=== PATIENT | female | born 1945 | race Caucasian/White ===

== ENCOUNTER 2023-02-02 08:31 | Emergency (ER) | payer MEDICARE, SELFPAY ==
[2023-02-02 08:34] VITALS: BP 164/76; PULSE 80; RESP 16; TEMP 37.2; O2SAT 97; BMI 26.0
[2023-02-02 08:56] LABS: Bacteria 0 SEEN /hpf (None Seen); Mucous, Urine 0 SEEN /hpf (<or=2+); Red Blood Cells-Urine 0 SEEN /hpf (0-5); Squamous Epithelial Cells - UA 0 SEEN /hpf (5-10)
[2023-02-02 08:58] LABS: Color, Urine Straw (Yellow); Glucose, Dipstick Normal (Normal); Ketone-Dipstick Negative (Negative); Leukocyte Esterase-Dipstick 500 /ul (Negative); Nitrite-Dipstick Negative (Negative); Occult Blood-Urine 250 /ul (Negative); Protein-Dipstick 15 mg/dl (Negative); Specific Gravity, Urine 1.005 (1.002-1.030); Urine Bilirubin Dipstick Negative (Negative); Urine Clarity Sl. Cloudy (Clear); Urine Urobilinogen Normal (Normal); Urine pH 6.5 (5.0 - 8.0)
[2023-02-02 09:05] LABS: White Blood Cells 50-100 SEEN /hpf (0-5)
[2023-02-02] MEDS: Cephalexin 250 MG Capsule 500 MG PO (09:35)
--- NOTE | 2023-02-02 11:20 | EDS_ITS ---
HPI HPI - Female History of Present Illness Chief Complaint: Complaint Narrative Narrative: 77-year-old female presenting with dysuria, urinary frequency. She states she thought she had a low-grade fever of about 100 yesterday. She has not take anything for fever today and has not had a recurrence. She feels a little bit unwell but not nauseous. She states has been drinking plenty of fluids. She states she recently traveled cross-country from [place] by car. She reports that she stopped every 3 hours to use the restroom. She was drinking plenty of fluids throughout the day traveling. She spent about 8 hours a day in the car. She states she was not holding in her urine. She has a distant history of UTIs in the past. She denies any flank or abdominal pain. PFSH PFSH Home Medications cephalexin 500 mg capsule 500 mg PO Q12 #14 CAPSULES 02/02/23 [Rx Last Taken Unknown] Allergy/AdvReac Type Severity Reaction Status Date / Time clindamycin Allergy Severe Swelling Verified 02/02/23 08:33 Sulfa (Sulfonamide AdvReac Mild Other Verified 02/02/23 08:33 Antibiotics) Social History Smoking Status: Never smoker ROS ROS ED Constitutional Constitutional ED: Reports fever(s); Denies chills or sweats Eyes Eyes: Denies blurry vision or change in vision ENT ENT ED: Denies ear pain or sore throat Cardiovascular Cardiovascular: Denies chest pain, palpitations or racing heartbeat Respiratory/Chest Respiratory/Chest: Denies cough, dyspnea or sputum Gastrointestinal Gastrointestinal: Denies abdominal pain, constipation, diarrhea, nausea or vomiting Genitourinary Genitourinary ED: Reports dysuria and urinary frequency; Denies hematuria Musculoskeletal Musculoskeletal: Denies arthralgias, myalgias or neck pain Integumentary Denies abscess, Abrasions or rash Neurologic Neurologic: Denies headache(s), paresthesias or weakness Psychiatric Psychiatric: Denies anxiety, depression, suicidal ideation or suicidal thoughts Endocrine Endocrinology: Denies polydipsia or polyuria EXAM Physical Exam Const Vital Signs: 02/02/23 08:34 Temperature 99 F Temperature Source Temporal Pulse Rate 80 Respiratory Rate 16 Blood Pressure 164/76 H Blood Pressure Mean 105 Pulse Ox 97 Oxygen Delivery Method Room Air Positive well nourished General Appearance ED: NAD; Negative for pallor HEENT Reports moist mucous membranes Eyes PERRL and EOMs intact bilaterally Resp normal respiratory effort Cardio regular rate and regular rhythm Extremity normal to inspection and full ROM Neuro oriented x3 and CN's II-XII intact bilaterally Sensorium / Orientation: alert Motor Exam: strength 5/5 throughout Psych mental status grossly normal Skin General Skin Exam: Negative for jaundice or pallor MDM MDM MDM Narrative Medical decision making narrative: Patient presenting with UTI symptoms. Urinalysis shows occult blood, 500 leukocyte esterase, 50-100 white blood cells. There is no contamination. She does not have any flank pain or abdominal pain to suggest a kidney stone. She has no history of kidney stones. I will treat her for UTI with Keflex. I did offer lab work and the patient declines. Urine sent for culture and return precautions were discussed. Impression: 1. UTI Lab Data Labs: Laboratory Results - last 24 hr 02/02/23 08:50 Urine Color Straw Urine Clarity Sl. Cloudy Urine pH 6.5 Ur Specific [place] 1.005 Urine Protein 15 H Urine Glucose (UA) Normal Urine Ketones Negative Urine Occult Blood 250 H Urine Nitrite Negative Urine Bilirubin Negative Urine Urobilinogen Normal Ur Leukocyte Esterase 500 H Urine RBC 0 SEEN Urine WBC 50-100 SEEN Ur Squamous Epith Cells 0 SEEN Urine Bacteria 0 SEEN Urine Mucus 0 SEEN Discharge Plan Triage Chief Complaint: Complaint ED Provider: Heladio Parada Dx/Rx/DC Orders Instructions: ED Cystitis Female Adult Prescriptions: New cephalexin 500 mg capsule 500 mg PO Q12 Qty: 14 0RF Primary Care Provider: Care Physician,No Primary Disposition Disposition: Home, Self Care Discharge Date/Time: 02/02/23 09:38
== END 2023-02-02 09:38 | disposition home or self-care (01) ==
LOC: ED 09:31
PROVIDERS: Emergency Provider Student in an Organized Health Care Education/Training Program; Visit Provider Student in an Organized Health Care Education/Training Program
DX: N39.0 Urinary tract infection, site not specified (principal)
CPT/HCPCS: 81001; 99283

== ENCOUNTER 2025-03-02 11:39 | Observation (INO) | payer MEDICARE, SELFPAY ==
[2025-03-02] VITALS (8 sets, daily range): BP systolic 145–188; BP diastolic 64–96; PULSE 71–89; RESP 16–18; TEMP 36.3–36.7; O2SAT 94–99; BMI 28.4; BMI 26.1
--- NOTE | 2025-03-02 13:02 | CT_ITS ---
PROCEDURE: BRAIN/HEAD WITHOUT CONTRAST 03/02/2025 REASON FOR EXAM: OFF BALANCE, RULE OUT POSTERIOR MASS/STROKE TECHNIQUE: BRAIN/HEAD WITHOUT CONTRAST Coronal and Sagittal reconstruction series were provided. One or more dose reduction techniques were used (e.g., Automated exposure control, adjustment of the mA and/or kV according to patient size, use of iterative reconstruction technique. RADIATION DOSE SUMMARY: CTDlvol: 52 mGy DLP: 1328 mGycm COMPARISON: None FINDINGS: Brain: There is no evidence of hemorrhage, acute ischemia or mass. No extra- axial fluid collection, midline shift or mass effect. Low-density in the periventricular white matter is seen along with patchy foci of low-density in the deep white matter of the frontal and parietal lobes. CSF Spaces: Mild generalized cerebral atrophy Sinuses/Mastoids: Clear. Circumferential mucosal thickening possibly mucous retention cysts in the sphenoid sinuses, maxillary sinuses. Opacification of several left ethmoid air cells in the left frontal sinuses. Bones: No fracture. Bilateral lens implants. CT/Brain/Head without Contrast IMPRESSION: 1. No evidence of intracranial hemorrhage or acute ischemia. 2. Changes of chronic microvascular ischemia and volume loss. Reading Location: [id number]
--- NOTE | 2025-03-02 13:02 | CT_ITS ---
PROCEDURE: CTA HEAD AND NECK W/ CONTRAST 03/02/2025 REASON FOR EXAM: OFF BALANCE, SUDDEN ONSET THIS AM TECHNIQUE: CTA HEAD AND NECK W/ CONTRAST Multiplanar Sagittal and Coronal images were obtained. 3D post processing was performed CONTRAST: Isovue 370 VOLUME: 100 mL One or more dose reduction techniques were used (e.g., Automated exposure control, adjustment of the mA and/or kV according to patient size, use of iterative reconstruction technique). RADIATION DOSE SUMMARY: CTDlvol: 13.6 mGy DLP: 1328.19 mGycm COMPARISON: Prior CT scan of the head done earlier in the day. FINDINGS: Aortic Arch: Normal size and branching pattern. Mild atherosclerotic plaque. Brachiocephalic and Subclavians: Unremarkable RIGHT Carotid: Right CCA: Unremarkable. Right ICA: Unremarkable. Right ECA: Unremarkable. LEFT Carotid: Left CCA: Unremarkable. Left ICA: Unremarkable. Left ECA: Unremarkable. Vertebrals: Codominant. Arise from the subclavians. Both vertebrals form the basilar. RIGHT Vertebral: Unremarkable. LEFT Vertebral: Unremarkable. Anatomy: [place] anatomy is normal. Aneurysm or avm: No intracranial aneurysms or large vascular malformations are identified. Anterior cerebral arteries: Unremarkable: Middle cerebral arteries: Unremarkable. Basilar artery: Unremarkable. Posterior cerebral arteries: Unremarkable. Other major branches of the posterior circulation: Major venous structures: Unremarkable. Other findings: Sphenoid sinusitis. Partial opacification of the ethmoid sinuses. Mucosal polyp or retention cyst at the bases of both maxillary sinus. CT/CTA Head AND Neck W/ Contrast IMPRESSION: No vascular abnormality is seen. Sinusitis. Reading Location: [id number]
[2025-03-02 13:13] LABS: Hematocrit 41.1 % (37-47); Hemoglobin 13.8 g/dL (12.0-15.0); Immature Granulocytes Count 0.000 X10^3/uL (0.0-0.0); Mean Corp Hgb Conc 33.6 g/dL (32-36); Mean Corpuscular Volume 96.3 fL (81-99); Mean Platelet Vol. 10.4 fl (6.2-12.0); NRBC Flagged by Analyzer 0 % (0-5); Platelet Count 281 K/mm3 (150-450); RBC Distribution Width CV 12.7 % (11.6-14.6); RBC Distribution Width SD 45.5 fl (35.1-43.9); Red Blood Count 4.27 M/mm3 (4.2-5.4); White Blood Count 6.4 K/mm3 (4.4-11.0)
[2025-03-02 13:45] LABS: Anion Gap 15 (5-15); BUN 22 mg/dL (4-19); BUN/Creat Ratio 34.3 RATIO (10-20); Calcium,Total 9.7 mg/dL (7.6-11.0); Carbon Dioxide 20.5 mmol/L (21.0-32.0); Chloride 106 mmol/L (98-108); Glucose 94 mg/dL (70-99); Potassium 3.5 mmol/L (3.3-5.1)
--- NOTE | 2025-03-02 15:54 | PCM.HP.STD ---
HPI - General General Date of Admission: 03/02/25 Date of Service: 03/02/25 Chief Complaint: Unsteadiness HPI Narrative BOBO SOLORIO, is a 79-year-old female with a history of migraines, PMR, hypertension presented [facility] ED 03/02/2025 for vertiginous symptoms that she woke up this a.m. In the ED temp 97.6, heart rate of 72 and a blood pressure of 188/64, respiratory rate 18 and pulse ox 94% on room air. CBC with white blood cell count 6.4 hemoglobin 13.8, BMP with bicarb 20.5, anion gap within normal limits of our assay at 15, BUN [address]. [address] of the brain with chronic microvascular changes. CTA head and neck demonstrated sinusitis but no LVO. Neuroexam normal except when patient got up she was very off balance and could not walk without help, hospitalist contacted for admission for CVA rule out. Patient evaluated bedside. She reports she went to bed last night and woke up feeling off balance, this morning she felt like maybe it changed a little bit when she would move her head but that is gone away and now its only when she is up moving around, no changes in vision or headache, feels like her head is more foggy and underwater and that she is off balance more so than the room spinning, no lightheadedness. 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 Denies any numbness, weakness, tingling, no other new or acute complaints [facility] Medical History (Updated 03/02/25 @ 16:[address] Evelyn Zepeda MD) Cataracts, bilateral HTN (hypertension) Migraines PMR (polymyalgia rheumatica) Retina disorder Home Medications ?Medication ?Instructions ?Recorded ?Last Taken ?Type diltiazem HCl 180 mg capsule,24 180 mg PO QHS 03/02/25 Unknown History hr,extended release (Tiadylt ER) prednisone 1 mg tablet 1 mg PO DAILY 03/02/25 Unknown History Allergy/AdvReac Type Severity Reaction Status Date / Time clindamycin Allergy Severe Swelling Verified 03/02/25 11:41 Beta-Blockers AdvReac Intermediate Chest Verified 03/02/25 11:41 (Beta-Adrenergic Bloc tightness Sulfa (Sulfonamide AdvReac Mild Other Verified 03/02/25 11:41 Antibiotics) Surgical History (Updated 03/02/25 @ 11:59 by Lori Rosenthal) History of cataract surgery Social History Smoking Status: Never smoker ROS ROS Narrative General: Denies fever/chills HENT: Denies headache, denies stuffy nose, denies sore throat EYES: Denies changes in vision Resp: Denies cough, denies shortness of breath Cardiac: Denies chest pain GI: Denies abdominal pain, denies changes in bowel, denies nausea/vomiting : Denies changes in urination Extremity: Denies swelling MSK: Denies weakness Neuro: Denies any numbness/tingling, feels off balance Heme: Denies any bleeding or bruising Skin: Denies rashes Psychiatric: No complaints voiced Vital Signs Vital Signs Vital Signs: 03/02/25 11:42 03/02/25 13:40 Temperature 97.6 F L Temperature Source Oral Pulse Rate 72 89 Respiratory Rate 18 17 Blood Pressure 188/64 H 181/77 H Blood Pressure Mean 105 111 Pulse Ox 94 96 Oxygen Delivery Method Room Air Room Air Physical Exam Narrative General: Alert, oriented, no apparent distress HEENT: Atraumatic, normocephalic Eyes: Anicteric, normal conjunctiva, extraocular movements intact, pupils equal Neck: Supple Respiratory: Clear to auscultation bilaterally, normal respiratory effort Cardiovascular: Regular rate and rhythm GI: Soft, nontender, nondistended Extremities: No edema Musculoskeletal: Strength 5 out of 5 in right upper extremity, 5 out of 5 left upper extremity, 5 out of 5 right lower extremity, 5 out of 5 left lower extremity Neuro: No overt focal neurological deficits, cranial nerves II through XII intact, [id number] without significant difficulty bilaterally Skin: No rashes appreciated Psych: Cooperative Results Lab / Micro Data 03/02/25 12:06 03/02/25 12:06 Labs: Laboratory Results - last 24 hr 03/02/25 12:06: WBC 6.4, RBC 4.27, Hgb 13.8, Hct 41.1, MCV 96.3, MCH 32.3 H, MCHC 33.6, RDW Std Deviation 45.5 H, RDW Coeff of Katelyn 12.7, Plt Count 281, MPV 10.4, Immature Gran % (Auto) 0.000, Neut % (Auto) 50.0, Lymph % (Auto) 34.1, [place] % (Auto) 10.4 H, Eos % (Auto) 4.7, Baso % (Auto) 0.8, Absolute Neuts (auto) 3.2, Absolute Lymphs (auto) 2.17, Nucleated RBC % 0, Sodium 142, Potassium 3.5, Chloride 106, Carbon Dioxide 20.5 L, Anion Gap 15, BUN 22 H, Creatinine 0.64 L, Est GFR (MDRD) Non-Af 89, BUN/Creatinine Ratio 34.3 H, Glucose 94, Calcium 9.7 Imaging Radiology Impression Brain CT 03/02/25 13:02 IMPRESSION: 1. No evidence of intracranial hemorrhage or acute ischemia. 2. Changes of chronic microvascular ischemia and volume loss. Reading Location: [id number] Head/Neck CTA 03/02/25 13:02 IMPRESSION: No vascular abnormality is seen. Sinusitis. Reading Location: [id number] Assessment & Plan Assessment/Plan (1) Neurologic abnormality: (2) HTN (hypertension): PLAN: Plan # Feeling of being off balance and like her head is underwater -Hospitalist contacted to admit for posterior stroke rule out -Admit to tele -CT head w/ no acute changes -CTA head and neck with no LVO -MRI ordered -NIH q4hr -asa, statin -Echo -PT/OT/Speech eval -Teleneuro consult ordered -Hold BP medications to allow for permissive hypertension for 24 hours unless SBP greater than 220 or DBP greater than 120, will resume patient's home diltiazem tonight as this will be over 24 hours since she has been fairly hypertensive # PMR - Continue home 1 mg prednisone # History of hypertension - Management as above # History of ocular migraines - Reports she gets aura with ocular migraine however does not have the headache that comes after - Now following with neurology through the [facility] - Denies any headache or any visual changes or similar symptoms today - Reports she has had 12 since August but again no symptoms similar to her presenting complete #DVT ppx: SCDs Evelyn Zepeda MD Charges/Coding Visit Charges Inpatient E&M: 63857 Init Hosp L2
--- NOTE | 2025-03-02 15:58 | ECHOD_ITS ---
Reason For Study Reason For Study: TIA/CVA Procedure This was a 2D Doppler, Color Flow transthoracic echocardiogram. Exam performed portable in patient room. Left Ventricle Moderate assymetric septal hypertrophy. Left ventricular systolic function is normal. The estimated ejection fraction is 55 %. Stage 1 diastolic dysfunction. No regional wall motion abnormalities noted. Right Ventricle Mildly dilated right ventricle. Normal systolic function. Atria Normal left atrium. Mitral Valve The mitral valve is structurally normal. No prolapse or stenosis seen. There is no vegetation seen on the mitral valve. Mild (1+) mitral valve insufficiency. Tricuspid Valve Normal tricuspid valve. No vegetations identified. Mild to moderate (1-2+) tricuspid valve insufficiency. Right ventricular systolic pressure estimated to be 20 mmHg. Aortic Valve Trisinus/trileaflet aortic valve. There is no aortic valvular vegetation. Mild aortic stenosis. Mild (1+) aortic valve insufficiency. MMode/2D Measurements & Calculations LVIDd: 4.4 cm IVSd: 1.1 cm Ao root diam: 3.6 cm LVIDs: 2.8 cm LVPWd: 0.89 cm FS: 35.4 % LAV(MOD-bp): 46.7 ml SV(MOD-sp4): 36.1 ml LVAd ap4: 25.6 cm2 LAV(MOD-bp) Indexed: 26.8 ml/m2 LVLd ap4: 7.8 cm SI(MOD-sp4): 20.8 ml/m2 LAV(MOD-sp2): 47.6 ml EDV(MOD-sp4): 71.4 ml LAV(MOD-sp4): 43.2 ml EDV(sp4-el): 70.9 ml LVAs ap4: 15.6 cm2 LVLs ap4: 6.4 cm ESV(MOD-sp4): 35.3 ml ESV(sp4-el): 32.5 ml EF(MOD-sp4): 50.6 % EF(sp4-el): 54.2 % SV(sp4-el): 38.4 ml LA A4 area: 16.3 cm2 LA dimension(2D): 3.8 cm RA A4 area: 11.0 cm2 Time Measurements MV dec time: 0.41 sec Doppler Measurements & Calculations MV E max matt: 65.9 cm/sec Lat Peak E' Matt: 9.1 cm/sec Med Peak E' Matt: 7.7 cm/sec MV A max matt: 132.0 cm/sec E/E' lat: 7.2 E/E' med: 8.5 MV E/A: 0.50 MV V2 max: 145.8 cm/sec MV P1/2t max matt: 84.6 cm/sec Ao V2 max: 129.2 cm/sec MV max P.5 mmHg MV P1/2t: 116.2 msec Ao max P.7 mmHg MV V2 mean: 62.3 cm/sec MV dec slope: 213.2 cm/sec2 Ao V2 mean: 88.4 cm/sec MV mean P.9 mmHg Ao mean P.5 mmHg MV V2 VTI: 35.2 cm MVA(P1/2t): 1.9 cm2 Ao V2 VTI: 33.4 cm AV (velocity ratio): 0.75 LV V1 max: 103.8 cm/sec PA V2 max: 103.2 cm/sec TR max matt: 263.3 cm/sec LV V1 max P.3 mmHg TR max P.7 mmHg LV V1 mean P.2 mmHg LV V1 mean: 68.8 cm/sec LV V1 VTI: 25.0 cm ECHO/Echo Complete Interpretation Summary The estimated ejection fraction is 55 %. Mild (1+) aortic valve insufficiency. Moderate assymetric septal hypertrophy. No regional wall motion abnormalities noted. Normal systolic function. Right ventricular systolic pressure estimated to be 20 mmHg. This was essentially a normal study. Ordering Physician: Evelyn Zepeda Performed By: Miguel Pate RCS
--- NOTE | 2025-03-02 16:16 | ED.VIS.STROK ---
HPI History of Present Illness Chief Complaint: Dizziness Narrative Narrative: Patient is a 79-year-old female presenting emergency department for feeling unsteady on her feet. Patient has a past medical history as below, states she does have a history of vertigo this was over 14 years ago. States that does not feel similar. She states last night she went to bed around 9 PM and had no symptoms. She states this morning she woke up around 7 AM and felt very unsteady on her feet when walking. She denies any dizziness or lightheadedness. Denies any headache or vision changes. Denies any speech difficulty. Denies any weakness or numbness in her extremities. Denies chest pain, shortness of breath or abdominal pain. [facility] Medical History HTN (hypertension) PMR (polymyalgia rheumatica) Retina disorder Cataracts, bilateral Migraines Home Medications ?Medication ?Instructions ?Recorded ?Last Taken ?Type diltiazem HCl 180 mg capsule,24 180 mg PO QHS 03/02/25 Unknown History hr,extended release (Tiadylt ER) prednisone 1 mg tablet 1 mg PO DAILY 03/02/25 Unknown History Allergy/AdvReac Type Severity Reaction Status Date / Time clindamycin Allergy Severe Swelling Verified 03/02/25 11:41 Beta-Blockers AdvReac Intermediate Chest Verified 03/02/25 11:41 (Beta-Adrenergic Bloc tightness Sulfa (Sulfonamide AdvReac Mild Other Verified 03/02/25 11:41 Antibiotics) Surgical History History of cataract surgery Social History Smoking Status: Never smoker ROS ROS ED ROS Narrative see HPI EXAM Physical Exam Narrative Exam Narrative: Vital signs: Reviewed General: Alert and orientedx3. No acute distress HEENT: Head is normocephalic and atraumatic, sinuses nontender, pupils equal round and reactive. Nares are patent. Oropharynx and throat exams normal. Neck: Supple without lymphadenopathy nontender Cardiovascular: Regular rate and rhythm, no murmurs. No rubs or gallops. Normal S1 and S2 Respiratory: Clear to auscultation bilaterally. No wheezes, rales, rhonchi Abdominal: Soft and nontender. Normal bowel sounds. No guarding or rebound. Nonsurgical abdomen Extremities: No tenderness. No bruising. Normal range of motion. Normal sensation. Skin: No rash or redness. Neurological: Cranial nerves II through XII are grossly intact. Normal strength and sensation. Normal cerebellar function with finger to nose and bustos testing. Unable to ambulate alone. The rest of the physical exam is unremarkable Const Vital Signs: 03/02/25 11:42 03/02/25 13:40 03/02/25 15:00 Temperature 97.6 F L Temperature Source Oral Pulse Rate 72 89 82 Respiratory Rate 18 17 Blood Pressure 188/64 H 181/77 H 150/84 H Blood Pressure Mean 105 111 106 Pulse Ox 94 96 95 Oxygen Delivery Method Room Air Room Air Room Air MDM MDM MDM Narrative Medical decision making narrative: Patient is an 79-year-old female presenting to emergency department for unsteady gait. Patient was seen and examined. Vitals are stable. Patient resting bed comfortably no acute distress. Last known well was 9 PM last night. Woke up at 7 AM with the symptoms. She is reporting no dizziness or lightheadedness. CT CTA ordered. Initial concern given her inability to ambulate was for a posterior stroke. Labs were obtained to evaluate for any anemia or electrolyte imbalance that could cause the feeling of unsteadiness. CBC with no leukocytosis. Hemoglobin within normal limits. BMP with no significant normalities. CT shows no evidence of intracranial hemorrhage or acute ischemia. CTA shows no vascular abnormality. Patient and family updated on the lab and imaging findings. Patient shared decision making to determine disposition. I explained that the CT does not completely rule out a posterior stroke and she needs an MRI for this. After long discussion she would like to be admitted for further workup including MRI. Patient mated to hospitalist Clinical impression: Gait abnormality Unsteady HTN History & Record Review Discussion w/independent historian: Patient and Family Lab Data Attestation: I reviewed the patient's lab results. Labs: Laboratory Results - last 24 hr 03/02/25 12:06 WBC 6.4 RBC 4.27 Hgb 13.8 Hct 41.1 MCV 96.3 MCH 32.3 H MCHC 33.6 RDW Std Deviation 45.5 H RDW Coeff of Katelyn 12.7 Plt Count 281 MPV 10.4 Immature Gran % (Auto) 0.000 Neut % (Auto) 50.0 Lymph % (Auto) 34.1 [place] % (Auto) 10.4 H Eos % (Auto) 4.7 Baso % (Auto) 0.8 Absolute Neuts (auto) 3.2 Absolute Lymphs (auto) 2.17 Nucleated RBC % 0 Sodium 142 Potassium 3.5 Chloride 106 Carbon Dioxide 20.5 L Anion Gap 15 BUN 22 H Creatinine 0.64 L Est GFR (MDRD) Non-Af 89 BUN/Creatinine Ratio 34.3 H Glucose 94 Calcium 9.7 Radiography Diagnostic Testing: Clinical Impression(s) from Imaging Studies Brain CT 03/02/25 13:02 IMPRESSION: 1. No evidence of intracranial hemorrhage or acute ischemia. 2. Changes of chronic microvascular ischemia and volume loss. Reading Location: [id number] Head/Neck CTA 03/02/25 13:02 IMPRESSION: No vascular abnormality is seen. Sinusitis. Reading Location: [id number] Discharge Plan Triage Chief Complaint: Dizziness ED Provider: Jennifer Alonso Dx/Rx/DC Orders Primary Care Provider: Waqar Jones NIHSS NIHSS 1a. Level of Consciousness: 0 - Alert; keenly responsive 1b. LOC Questions: 0 - Answers BOTH questions correctly 1c. LOC Commands: 0 - Performs BOTH tasks correctly 2. Best Gaze: 0 - Normal 3. Visual: 0 - No visual loss 4. Facial Palsy: 0 - Normal symmetrical movements 5a. Left Arm: 0 - No drift; arm holds 90 (or 45) degrees for full 10 seconds 5b. Right Arm: 0 - No drift; arm holds 90 (or 45) degrees for full 10 seconds 6a. Left Le - No drift; leg holds 30-degree position for full 5 seconds 6b. Right Le - No drift; leg holds 30-degree position for full 5 seconds 7. Limb Ataxia: 0 - Absent 8. Sensory: 0 - Normal; no sensory loss 9. Best Language: 0 - No aphasia; normal 10. Dysarthria: 0 - Normal 11. Extinction and Inattention: 0 - No abnormality Total: 0
[2025-03-02 16:21] LABS: Mucous, Urine 0 SEEN /hpf (<or=2+); Red Blood Cells-Urine 0 SEEN /hpf (0-5)
[2025-03-02 17:08] LABS: Color, Urine Yellow (Yellow); Glucose, Dipstick Normal (Normal); Ketone-Dipstick Negative (Negative); Leukocyte Esterase-Dipstick Negative /ul (Negative); Nitrite-Dipstick Negative (Negative); Occult Blood-Urine Negative /ul (Negative); Protein-Dipstick 15 mg/dl (Negative); Specific Gravity, Urine 1.010 (1.002-1.030); Urine Bilirubin Dipstick Negative (Negative)
[2025-03-02 17:50] LABS: Squamous Epithelial Cells - UA 0-5 SEEN /hpf (5-10)
[2025-03-02 17:51] LABS: Transitional Epithelial - Ur 0-5 SEEN /hpf (0-5)
[2025-03-02] MEDS: 0.9% Normal Saline (1000mL) 1,000 ML 100 ML IV (18:32)
--- NOTE | 2025-03-02 20:23 | NURSING ---
Pt requesting meds be given early.
--- OUTSIDE RECORDS SUMMARY | 2025-03-02 23:48 | XMS RPT_ITS | CCD ---
Author Organization [facility] Care Team Providers Care Medical/Surgery Registered Nurse Name Role Phone Tal Heladio Attending Unavailable Care Physician, No Primary Primary Care Unava sunny Perez MD, Gely Yañez Primary Care Provider Gely Perez MD Primary Care Provider GELY PEREZ Attending Unavailab le CHRIS, GELY YAÑEZ Primary Care Unavailab le CHRIS, GELY YAÑEZ Referring Unavailab le CHRIS, GELY YAÑEZ Primary Care Unavailab le CHRIS, GELY YAÑEZ Referring Unavailab le CHRIS, GELY YAÑEZ Primary Care Unavailab le CHRIS, GELY YAÑEZ Attending Unavailab le CHRIS, GELY YAÑEZ Primary Care Unavailab le CHRIS, GELY YAÑEZ Referring Unavailab le CHRIS, GELY YAÑEZ Primary Care Unavailab le CHRIS, GELY YAÑEZ Referring Unavailab le CHRIS, GELY YAÑEZ Primary Care Unavailab le CHRIS, GELY YAÑEZ Attending Unavailab le CHRIS, GELY YAÑEZ Primary Care Unavailab le CHRIS, GELY YAÑEZ Attending Unavailab le CHRIS, GELY YAÑEZ Primary Care Unavailab le CHRIS, GELY YAÑEZ Primary Care Unavailab le YASEEN, KINSHIMONH Referring Unavailable YASEEN, GINNY Referring Unavailable CHRIS, GELY YAÑEZ Primary Care Unavailab le YASEEN, KINSHIMONH Attending Unavailable CHRIS, GELY YAÑEZ Primary Care Unavailab conrad Alonso MD, Dr. Rodriguez Emergency Provider Sandrine Vasquez MD, Dr. Zavaleta Primary Care Provider Duane CASTRO, Dr. Rivas Admit Provider [phone] Duane CASTRO, Dr. Rivas Attending Provider Allergies Allergy Classification Reported Allergen(s) Allergy Type Date of Onset Reaction(s) Facility Lincosamides (antibiotic) (2 sources) Clindamycin Drug Allergy 3 Swelling [facility] Sulfonamides (antibiotic) (2 sources) Sulfonamides (Antibiotic) Drug Allergy 3 Unknown [facility] (20 sources) Clindamycin; Translations: [CLINDAMYCIN] Drug Allergy 3 Swelling [facility] Comment on above: LIPS SWELL (4 sources) Sulfonamides (Antibiotic); Translations: [SULFA (SULFONAMIDE ANTIBIOTICS)] Propensity to adverse reactions 3 Other [facility] Comment on above: MY HANDS GET FLOPPY (1 source) Clindamycin Drug Allergy 3 [facility] Repository (1 source) Sulfonamides (Antibiotic) Drug allergy (disorder) 3 [facility] Repository (17 sources) Sulfonamides (Antibiotic) Drug Allergy 3 Other: See Comments, Unknown [facility] (1 source) Adrenergic Beta-Antagonists Propensity to adverse reactions 5 Chest tightness [facility] Medications Current Medications Medication Drug Class(es) Dates Sig (Normalized) Sig (Original) cephalexin 500 mg oral tablet (3 sources) Cephalosporin Antibacterial Start: 11-30-2023 End: 12-10-2023 take 1 tablet by mouth twice daily Cephalexin 500 mg tab Indications: Acute cystitis with hematuria Take 1 tablet by mouth two times a day for 10 days. 20 tablet 0 11/30/2023 12/10/2023 Active Start: 02-02-2023 End: 03-02-2025 take 1 capsule by mouth every twelve hours Cephalexin 500 mg capsule Discontinued 500 mg PO EVERY 12 HOURS 14 0 February 02, 2023 12:00am March 02, 2025 11:43am cholecalciferol 0.05 mg oral tablet (14 sources) Vitamin D take 1 tablet by mouth once daily cholecalciferol (VITAMIN D-3) 50 mcg (2,000 unit) tablet Take 2,000 Units by mouth once daily. Active 24 hr dilTIAZem hydrochloride 180 mg extended release oral capsule (20 sources) Calcium Channel [place] Start: 03-02-20 take 1 capsule by mouth at bedtime, then take 1 capsule by mouth every twenty-four hours Diltiazem Hcl (Tiadylt Er) 180 mg capsule,extended release 24 hr Active 180 mg PO AT BEDTIME March 02, 2025 12:00am Start: 03-06-2023 End: 03-19-2024 take 1 capsule by mouth once daily dilTIAZem CR (TIADYLT ER) 180 mg 24 hr capsule Take 1 capsule by mouth once daily. 90 capsule 3 03/19/2024 Active Comment on above: Take 1 capsule by mo ut once daily. mometasone furoate 1 mg/ml topical lotion (14 sources) Corticosteroid Start: 4 Mometasone 0.1 % solution Apply to affected area once daily. 60 mL 5 12/17/2023 Active predniSONE 1 mg oral tablet (20 sources) Start: 5 take 1 tablet by mouth once daily Prednisone 1 mg tablet Active 1 mg PO DAILY March 02, 2025 12:00am Start: 11-25-2024 take 2 tablets by mo ut once daily predniSONE (DELTASONE) 1 mg tablet TAKE 2 TABLETS BY MOUTH ONCE DAILY. 180 tablet 2 11/25/2024 Active Start: 12-17-2023 End: 09-24-2024 take 2 tablets by mouth once daily predniSONE (DELTASONE) 1 mg tablet Take 2 tablets by mouth once daily. 180 tablet 1 12/17/2023 09/24/2024 Discontinued Start: 11-06-2023 End: 11-30-2023 predniSONE (DELTASONE) 1 mg tablet Start: 09-10-2023 End: 12-17-2023 take 1 tablet by mouth once daily predniSONE (DELTASONE) 2.5 mg tablet Take 1 tablet by mouth once daily. 30 tablet 2 09/10/2023 12/09/2023 Active Start: 05-21-2023 End: 05-21-2023 take 3 tablets by mouth once daily predniSONE (DELTASONE) 1 mg tablet Take 3 tablets by mouth once daily. 270 tablet 3 05/21/2023 Active Comment on above: Take 3 mg by mouth o nce daily. Take 3 tablets by mo uth once daily. Take 1 tablet by jah once daily. Completed/Discontinued Medications Medication Drug Class(es) Dates Sig (Normalized) Sig (Original) Biotin (6 sources) End: 03-19-2024 take 1 tablet by mouth once daily BIOTIN ORAL Take 1 tablet by mouth once daily. OTC 03/19/2024 Discontinued take 1 tablet by mouth once yue y BIOTIN ORAL Take 1 tablet by mouth once daily. OTC 0 Active MULTIVITAMIN ORAL (7 sources) End: 09-24-2024 take 1 tablet by mouth once daily MULTIVITAMIN ORAL Take 1 tablet by mouth once daily. 09/24/2024 Discontinued take 1 tablet by mouth once yue y MULTIVITAMIN ORAL Take 1 tablet by mouth once daily. Active take 1 tablet by mouth once yue y MULTIVITAMIN ORAL Take 1 tablet by mouth once daily. 0 Active vit A/vit C/biotin/zinc/yoli er ([id number],VIT A,C-BIOTIN, ORAL) (5 sources) End: 11-26-2024 vit A/vit C/biotin/zinc/yoli er ([id number]-[id number],VIT A,C-BIOTIN, ORAL) Take by mouth. 11/26/2024 Discontinued (Other) vit A/vit C/biot in/zinc/copper ([id number],VIT A,C-BIOTIN, ORAL) Take by mouth. Active Problems Active Problems Problem Classification Problem Date Documented Date Episodic/Chronic Administrative/social admission (6 sources) Patient encounter status; Translations: [Other specified counseling] Onset: 09-24-2024 09-23-2024 Episodic E Codes: Adverse effects of medical drugs (1 source) Corticosteroids adverse reaction; Translations: [Adverse effect of glucocorticoids and synthetic analogues, initial encounter] 11-30-2024 Episodic Essential hypertension (20 sources) Essential hypertension; Translations: [Essential (primary) hypertension] Onset: 03-06-2023 03-06-2023 Chronic Nutritional deficiencies (3 sources) Vitamin D deficiency; Translations: [Vitamin D deficiency, unspecified] Onset: 12-17-2023 12-17-2023 Chronic Osteoporosis (7 sources) Osteoporosis; Translations: [Age-related osteoporosis without current pathological fracture] Onset: 01-12-2025 12-31-2024 Chronic Other connective tissue disease (20 sources) Polymyalgia rheumatica; Translations: [Polymyalgia rheumatica] Onset: 03-06-2023 03-06-2023 Chronic Other connective tissue disease (2 sources) Polymyalgia rheumatica; Translations: [PMR (polymyalgia rheumatica) ([facility])] Onset: 03-06-2023 Chronic Other connective tissue disease (2 sources) Neurological deficit; Translations: [Other symptoms and signs involving the nervous system] 03-02-2025 Episodic Other screening for suspected conditions (not mental disorders or infectious disease) (2 sources) Encounter for screening for diseases of the blood and blood-forming organs and certain disorders involving the immune mechanism; Translations: [Encounter for screening for lipoid disorders] Onset: 09-26-2024 Episodic Other skin disorders (1 source) Ingrowing nail; Translations: [Ingrowing nail] 12-17-2023 Episodic Residual codes; unclassified (1 source) Bilateral lower limb edema; Translations: [Localized edema] 09-24-2024 Episodic Residual codes; unclassified (1 source) Localized edema; Translations: [Bilateral leg edema] Onset: 09-24-2024 Episodic Screening and history of mental health and substance abuse codes (2 sources) Encounter for screening for depression; Translations: [Encounter for screening examination for other mental health and behavioral disorders] Onset: 09-24-2024 Episodic Systemic lupus erythematosus and connective tissue disorders (5 sources) Giant cell arteritis; Translations: [Other giant cell arteritis] Onset: 12-31-2024 12-31-2024 Chronic Thyroid disorders (2 sources) Goiter; Translations: [Iodine-deficiency related diffuse (endemic) goiter] Onset: 09-26-2024 09-24-2024 Chronic Urinary tract infections (1 source) Acute cystitis; Translations: [Acute cystitis with hematuria] 11-30-2023 Episodic Past or Other Problems Problem Classification Problem Date Documented Da te Episodic/Chronic Other nervous system disorders (19 sources) Tremor; Translations: [Tremor, unspecified] Onset: 05-21-2023 05-21-2023 Episodic Other skin disorders (1 source) Ingrowing nail; Translations: [Ingrown nail] Onset: 12-17-2023 Episodic Results Test Name Value Interpretation Reference Range Facility Absolute lymphocyte countOrd ered By: Jennifer Alonso on 03-02-2025 Lymphocytes Auto (Unsp spec) [#/Vol] 2.17 10*3/uL 0.83-4.51 [facility] Absolute neutrophil countOrd ered By: Jennifer Alonso on 03-02-2025 Neutrophils (Bld) [#/Vol] 3.2 10*3/uL 2.0-7.7 [facility] Anion gap in Serum or Plasma Ordered By: Jennifer Gavin on 03-02-2025 Anion gap [Moles/Vol] 15 mmol/L 5-15 [facility] Automated lymphocyte count a s percentage of total leukocytesOrdered By: Jennifer Gavin on 03-02-2025 Lymphocytes/100 WBC Auto (Unsp spec) 34.1 % 19-41 [facility] BUN/creatinine ratioOrdered By: Jennifer Gavin on 03-02-2025 Urea nitrogen/Creatinine [Mass ratio] 34.3 mg/mg High 10-20 [facility] Basophil percentageOrdered B y: Jennifer Gavin on 03-02-2025 Basophils/100 WBC (Bld) 0.8 % 0-1 [facility] Carbon dioxide, total [Moles /volume] in Central venous bloodOrdered By: Jennifer Gavin on 03-02-2025 CO2 [Moles/Vol] 20.5 mmol/L Low 21.0-32.0 [facility] Chloride assayOrdered By: Er ica Gavin on 03-02-2025 Chloride [Moles/Vol] 106 mmol/L 98-108 [facility] Eosinophil percentageOrdered By: Jennifer Gavin on 03-02-2025 Eosinophils/100 WBC (Bld) 4.7 % 0-5 [facility] Erythrocyte distribution wid th ratioOrdered By: Jennifer Gavin on 03-02-2025 Erythrocyte distribution width (RBC) [Ratio] 12.7 % 11.6-14.6 [facility] Erythrocyte distribution wid th standard deviationOrdered By: Jennifer Gavin on 03-02-2025 Erythrocyte distribution width (RBC) [Ratio] 45.5 fl High 35.1-43.9 [facility] Glomerular filtration rate ( GFR) estimation/1.73 sq m using serum, plasma, or whole bOrdered By: Jennifer Gavin on 03-02-2025 GFR/1.73 sq M.predicted among non-blacks MDRD (S/P/Bld) [Vol rate/Area] 89 mL/min/{1.73_m2} >60 [facility] Comment on above: mL/min/1.73m2 CKD-EP I Creatinine Equation (2020) Hematocrit Auto (Bld) [Volum e fraction]Ordered By: Jennifer Alonso on 03-02-2025 Hematocrit (Bld) [Volume fraction] 41.1 % 37-47 [facility] Hemoglobin measurementOrdere d By: Jennifer Alonso on 03-02-2025 Hemoglobin (Bld) [Mass/Vol] 13.8 g/dL 12.0-15.0 [facility] Immature granulocytes/100 WB C Auto (Bld)Ordered By: Jennifer Alonso on 03-02-2025 Immature granulocytes/100 WBC (Bld) 0.000 % 0.0-0.9 [facility] Comment on above: IG% - Immature Granu locytes (promyelocytes, myelocytes and metamyelocytes) > 1% indicates that a LEFT SHIFT is Present. MCV (mean corpuscular volume ) determinationOrdered By: Jennifer Alonso on 03-02-2025 MCV (RBC) [Entitic vol] 96.3 fL 81-99 [facility] Mean corpuscular hemoglobin (MCH) determinationOrdered By: Jennifer Alonso on 03-02-2025 MCH (RBC) [Entitic mass] 32.3 pg High 27.0-32.0 [facility] Mean corpuscular hemoglobin concentration (MCHC) determinationOrdered By: Jennifer Alonso on 03-02-2025 MCHC (RBC) [Mass/Vol] 33.6 g/dL 32-36 [facility] Mean platelet volume determi nationOrdered By: Jennifer Alonso on 03-02-2025 Platelet mean volume (Bld) [Entitic vol] 10.4 fL 6.2-12.0 [facility] Monocyte percentageOrdered B y: Jennifer Alonso on 03-02-2025 Monocytes/100 WBC (Bld) 10.4 % High 0-10 [facility] Neutrophil percentageOrdered By: Jennifer Alonso on 03-02-2025 Neutrophils/100 WBC (Bld) 50.0 % 47-70 [facility] Nucleated red blood cell per centageOrdered By: Jennifer Alonso on 03-02-2025 Nucleated RBC/100 WBC (Bld) [Ratio] 0 % 0-5 [facility] Platelet countOrdered By: Ac Alonso on 03-02-2025 Platelets (Bld) [#/Vol] 281 10*3/uL 150-450 [facility] Potassium measurement (mass/ volume)Ordered By: Jennifer Alonso on 03-02-2025 Potassium (Unsp spec) [Mass/Vol] 3.5 mmol/L 3.3-5.1 [facility] RBC Auto (Bld) [#/Vol]Ordere d By: Jennifer Alonso on 03-02-2025 RBC (Bld) [#/Vol] 4.27 10*6/uL 4.2-5.4 [facility] Serum creatinine measurement (mass/volume)Ordered By: Jennifer Alonso on 03-02-2025 Creatinine [Mass/Vol] 0.64 mg/dL Low 0.70-1.20 [facility] Serum glucose measurement (m ass/volume)Ordered By: Jennifer Alonso on 03-02-2025 Glucose [Mass/Vol] 94 mg/dL 70-99 [facility] Serum or plasma calcium nettie urement (mass/volume)Ordered By: Jennifer Alonso on 03-02-2025 Calcium [Mass/Vol] 9.7 mg/dL 7.6-11.0 [facility] Serum or plasma urea nitroge n measurement (mass/volume)Ordered By: Jenniferbobby Alonso on 03-02-2025 Urea nitrogen [Mass/Vol] 22 mg/dL High 4-19 [facility] Sodium levelOrdered By: Vish Alonso on 03-02-2025 Sodium [Moles/Vol] 142 mmol/L 133-145 [facility] White blood cell (WBC) count Ordered By: Jenniferbobby Alonso on 03-02-2025 WBC (Bld) [#/Vol] 6.4 10*3/uL 4.4-11.0 [facility] US TEMPORAL ARTERY BILon US TEMPORAL ARTERY MIGUELANGEL * * *Final Report * * * DATE OF EXAM: Jan 12 2025 8:00AM [facility] 1123 - US TEMPORAL ARTERY MIGUELANGEL / PROCEDURE REASON: multiple diagnoses * * * * Physician Interpretation * * * * US TEMPORAL ARTERY MIGUELANGEL CLINICAL HISTORY: 79-year-old female with PMR. This examination was requested to assess the bilateral temporal arteries, bilateral extracranial vertebral arteries, and bilateral axillary arteries to rule out Giant cell arteritis. TECHNIQUE: Grayscale and color Doppler images of the bilateral temporal, vertebral, and axillary arteries were obtained. Ultrasound images were acquired and stored in a permanent archive. COMPARISON: None. RESULT: Right temporal artery peak systolic velocities in cm/sec: Proximal 87 Mid 68 Distal 51 Left temporal artery peak systolic velocities in cm/sec: Proximal 60 Mid 50 Distal 61 Temporal artery wall measurements: Right mid artery 0.01 cm Left mid artery 0.01 cm Right vertebral artery peak systolic velocities in cm/sec: Proximal 70 Mid 46 Distal 45 Left vertebral artery peak systolic velocities in cm/sec: Proximal 80 Mid 50 Distal 42 Vertebral artery wall measurements: Right mid artery 0.03 cm Left mid artery 0.03 cm Right axillary artery peak systolic velocities in cm/sec: Proximal 97 Distal 109 Left axillary artery peak systolic velocities in cm/sec: Proximal 89 Distal 100 Axillary artery wall measurements: Right mid artery 0.04 cm Left mid artery 0.04 cm Technologist: Faith Ramirez RVT, [facility] IMPRESSION: Grayscale and color Doppler images of the bilateral temporal, vertebral, and axillary arteries were obtained. Peak systolic velocities along all of the evaluated vessels are within normal limits and all of the imaged vessel gomez appear normal. No sonographic halo sign is identified. Today's exam demonstrates no evidence of giant cell arteritis by sonographic criteria. Yarn Wrapper: [place] Transcribe Date/Time: Jan 12 2025 9:46A Dictated by : DANNY SWANSON MD This examination was interpreted and the report reviewed and electronically signed by: DANNY SWANSON MD on Jan 12 2025 10:46AM EST [id number] Normal [facility] US.doppler [place] 01-12-2025 IMPRESSION: Grayscale and color Doppler images of the bilateral temporal, vertebral, and axillary arteries were obtained. Peak systolic velocities along all of the evaluated vessels are within normal limits and all of the imaged vessel gomez appear normal. No sonographic halo sign is identified. Today's exam demonstrates no evidence of giant cell arteritis by sonographic criteria. Yarn Wrapper: [place] Transcribe Date/Time: Jan 12 2025 9:46A Dictated by : DANNY SWANSON MD This examination was interpreted and the report reviewed and electronically signed by: DANNY SWANSON MD on Jan 12 2025 10:46AM EST DIVISION OF RADIOLOGY * * *Final Report* * * DATE OF EXAM: Jan 12 2025 8:00AM [facility] [place] TEMPORAL ARTERY MIGUELANGEL / PROCEDURE REASON: multiple diagnoses * * * * Physician Interpretation * * * * US TEMPORAL ARTERY MIGUELANGEL CLINICAL HISTORY: 79-year-old female with PMR. This examination was requested to assess the bilateral temporal arteries, bilateral extracranial vertebral arteries, and bilateral axillary arteries to rule out Giant cell arteritis. TECHNIQUE: Grayscale and color Doppler images of the bilateral temporal, vertebral, and axillary arteries were obtained. Ultrasound images were acquired and stored in a permanent archive. COMPARISON: None. RESULT: Right temporal artery peak systolic velocities in cm/sec: Proximal 87 Mid 68 Distal 51 Left temporal artery peak systolic velocities in cm/sec: Proximal 60 Mid 50 Distal 61 Temporal artery wall measurements: Right mid artery 0.01 cm Left mid artery 0.01 cm Right vertebral artery peak systolic velocities in cm/sec: Proximal 70 Mid 46 Distal 45 Left vertebral artery peak systolic velocities in cm/sec: Proximal 80 Mid 50 Distal 42 Vertebral artery wall measurements: Right mid artery 0.03 cm Left mid artery 0.03 cm Right axillary artery peak systolic velocities in cm/sec: Proximal 97 Distal 109 Left axillary artery peak systolic velocities in cm/sec: Proximal 89 Distal 100 Axillary artery wall measurements: Right mid artery 0.04 cm Left mid artery 0.04 cm Technologist: Faith Ramirez RVT, [facility] DIVISION OF RADIOLOGY Provider, [facility] - 01/12/2025 * * *Final Report* * * DATE OF EXAM: Jan 12 2025 8:00AM [facility] [place] - US TEMPORAL ARTERY MIGUELANGEL / PROCEDURE REASON: multiple diagnoses * * * * Physician Interpretation * * * * US TEMPORAL ARTERY MIGUELANGEL CLINICAL HISTORY: 79-year-old female with PMR. This examination was requested to assess the bilateral temporal arteries, bilateral extracranial vertebral arteries, and bilateral axillary arteries to rule out Giant cell arteritis. TECHNIQUE: Grayscale and color Doppler images of the bilateral temporal, vertebral, and axillary arteries were obtained. Ultrasound images were acquired and stored in a permanent archive. COMPARISON: None. RESULT: Right temporal artery peak systolic velocities in cm/sec: Proximal 87 Mid 68 Distal 51 Left temporal artery peak systolic velocities in cm/sec: Proximal 60 Mid 50 Distal 61 Temporal artery wall measurements: Right mid artery 0.01 cm Left mid artery 0.01 cm Right vertebral artery peak systolic velocities in cm/sec: Proximal 70 Mid 46 Distal 45 Left vertebral artery peak systolic velocities in cm/sec: Proximal 80 Mid 50 Distal 42 Vertebral artery wall measurements: Right mid artery 0.03 cm Left mid artery 0.03 cm Right axillary artery peak systolic velocities in cm/sec: Proximal 97 Distal 109 Left axillary artery peak systolic velocities in cm/sec: Proximal 89 Distal 100 Axillary artery wall measurements: Right mid artery 0.04 cm Left mid artery 0.04 cm Technologist: Faith Ramirez RVT, [facility] IMPRESSION IMPRESSION: Grayscale and color Doppler images of the bilateral temporal, vertebral, and axillary arteries were obtained. Peak systolic velocities along all of the evaluated vessels are within normal limits and all of the imaged vessel gomez appear normal. No sonographic halo sign is identified. Today's exam demonstrates no evidence of giant cell arteritis by sonographic criteria. Yarn Wrapper: [place] Transcribe Date/Time: Jan 12 2025 9:46A Dictated by : DANNY SWANSON MD This examination was interpreted and the report reviewed and electronically signed by: DANNY SWANSON MD on Jan 12 2025 10:46AM EST [facility] Radiology Study observation (narrative) Jayden loes [facility] US.doppler HeadOrdered By: Sharron meyers Provider on 01-12-2025 [facility] 25(OH)D3 SerPl-mCncon 2024 25-hydroxyvitamin D3 [Mass/Vol] 26.6 ng/mL Low 31.0-80.0 [facility] Comment on above: Order Comment: Speci men Type: BLOOD SPECIMEN Ordering Facility: [facility] Address: [address] [place] [address] Result Comment: Clas sification of 25 [place] Vitamin D status: Deficiency/Insufficiency: < or = 30 ng/ml. Sufficiency/Optimal Levels: 31-80 ng/mL Toxicity: > 100 ng/mL. Test performed by chemiluminescent immunoassay. Performed By: #### 1 [id number] #### [facility] CLIA [id number] [address] [place] [address] [place] 25-hydroxyvitamin D3 [Mass/V ol]on 12-31-2024 Interpretation and review of laboratory results Abnormal [facility] The reference range interval was based on an analysis of samples from healthy adults and may not pertain to children from 0-18 years old. [facility] C-REACTIVE PROTEINon 025 CRP [Mass/Vol] mg/dL [facility] - 0.9 mg/dL [facility] CBC W Auto Differential pane l (Bld)on 12-31-2024 Basophils (Bld) [#/Vol] 0.04 10*3/uL [facility] Basophils/100 WBC (Bld) 0.5 % [facility] Differential cell count method Nom (Bld) Auto [facility] Eosinophils (Bld) [#/Vol] 0.17 10*3/uL [facility] Eosinophils/100 WBC (Bld) 1.9 % [facility] Erythrocyte distribution width (RBC) [Ratio] 13.7 % 11.5 - 15.0 % [facility] Hematocrit (Bld) [Volume fraction] 40.5 % 36.0 - 46.0 % [facility] Hemoglobin (Bld) [Mass/Vol] 13.2 g/dL 11.5 - 15.5 g/dL [facility] Immature granulocytes (Bld) [#/Vol] [facility] Immature granulocytes/100 WBC (Bld) 0.2 % [facility] Lymphocytes (Bld) [#/Vol] 1.66 10*3/uL [facility] Lymphocytes/100 WBC (Bld) 19 % [facility] MCH (RBC) [Entitic mass] 31.6 pg 26. 0 - 34.0 pg [facility] MCHC (RBC) [Mass/Vol] 32.6 g/dL 30.5 - 36.0 g/dL [facility] MCV (RBC) [Entitic vol] 96.9 fL 80.0 - 100.0 fL [facility] Monocytes (Bld) [#/Vol] 0.63 10*3/uL [facility] Monocytes/100 WBC (Bld) 7.2 % [facility] Neutrophils (Bld) [#/Vol] 6.2 10*3/uL [facility] Neutrophils/100 WBC (Bld) 71.2 % [facility] Nucleated RBC (Bld) [#/Vol] [facility] Nucleated RBC/100 WBC (Bld) [Ratio] 0 % /100 WBC [facility] Platelet mean volume (Bld) [Entitic vol] 10.1 fL 9.0 - 12.7 fL [facility] Platelets (Bld) [#/Vol] 270 10*3/uL [facility] RBC (Bld) [#/Vol] 4.18 10*6/uL 3.90 - 5.2 0 m/uL [facility] WBC (Bld) [#/Vol] 8.72 10*3/uL [facility] Basophils (Bld) [#/Vol] 0.04 10*3/uL Normal <0.11 [facility] Comment on above: Order Comment: Speci men Type: BLOOD SPECIMEN Ordering Facility: [facility] Address: [address] [place] [address] Performed By: #### [id number] #### [facility] CLIA [id number] [address] [place] [address] [place] [place] Basophils/100 WBC (Bld) 0.5 % Normal C [facility] Comment on above: Order Comment: Speci men Type: BLOOD SPECIMEN Ordering Facility: [facility] Address: [address] [place] [address] Performed By: #### 5 7021-8, 4537-7 #### [facility] CLIA [id number] [address] [place] [address] [place] Differential cell count method Nom (Bld) Auto Normal [facility] Comment on above: Order Comment: Speci men Type: BLOOD SPECIMEN Ordering Facility: [facility] Address: [address] [place] [address] Performed By: #### 5 7021-8, 4537-7 #### [facility] CLIA [id number] [address] [place] [address] [place] Eosinophils (Bld) [#/Vol] 0.17 10*3/uL Normal <0.46 [facility] Comment on above: Order Comment: Speci men Type: BLOOD SPECIMEN Ordering Facility: [facility] Address: [address] [place] [address] Performed By: #### 5 7021-8, 4537-7 #### [facility] CLIA [id number] [address] [place] [address] [place] Eosinophils/100 WBC (Bld) 1.9 % Normal [facility] Comment on above: Order Comment: Speci men Type: BLOOD SPECIMEN Ordering Facility: [facility] Address: [address] [place] [address] Performed By: #### 5 7021-8, 4537-7 #### [facility] CLIA [id number] [address] [place] [address] [place] Erythrocyte distribution width (RBC) [Ratio] 13.7 % Normal 11.5-15.0 [facility] Comment on above: Order Comment: Speci men Type: BLOOD SPECIMEN Ordering Facility: [facility] Address: [address] [place] [address] Performed By: #### 5 7021-8, 4537-7 #### [facility] CLIA [id number] [address] [place] [address] [place] Hematocrit (Bld) [Volume fraction] 40.5 % Normal 36.0-46.0 [facility] Comment on above: Order Comment: Speci men Type: BLOOD SPECIMEN Ordering Facility: [facility] Address: [address] [place] [address] Performed By: #### 5 7021-8, 4537-7 #### [facility] CLIA [id number] [address] [place] [address] [place] Hemoglobin (Bld) [Mass/Vol] 13.2 g/dL Normal 11.5-15.5 [facility] Comment on above: Order Comment: Speci men Type: BLOOD SPECIMEN Ordering Facility: [facility] Address: [address] [place] [address] Performed By: #### 5 7021-8, 4537-7 #### [facility] CLIA [id number] [address] [place] [address] [place] Immature granulocytes (Bld) [#/Vol] 10*3/uL Normal <0.10 [facility] Comment on above: Order Comment: Speci men Type: BLOOD SPECIMEN Ordering Facility: [facility] Address: [address] [place] [address] Performed By: #### 5 7021-8, 4536-7 #### [facility] CLIA [id number] [address] [place] [address] [place] Immature granulocytes/100 WBC (Bld) 0.2 % Normal [facility] Comment on above: Order Comment: Speci men Type: BLOOD SPECIMEN Ordering Facility: [facility] Address: [address] [place] [address] Performed By: #### 5 7021-8, 4536-7 #### [facility] CLIA [id number] [address] [place] [address] [place] Lymphocytes (Bld) [#/Vol] 1.66 10*3/uL Normal 1.00-4.00 [facility] Comment on above: Order Comment: Speci men Type: BLOOD SPECIMEN Ordering Facility: [facility] Address: [address] [place] [address] Performed By: #### 5 7021-8, 4536-7 #### [facility] CLIA [id number] [address] [place] [address] [place] Lymphocytes/100 WBC (Bld) 19.0 % Normal [facility] Comment on above: Order Comment: Speci men Type: BLOOD SPECIMEN Ordering Facility: [facility] Address: [address] [place] [address] Performed By: #### 5 7021-8, 4537-7 #### [facility] CLIA [id number] [address] [place] [address] [place] MCH (RBC) [Entitic mass] 31.6 pg Normal 26.0-34.0 [facility] Comment on above: Order Comment: Speci men Type: BLOOD SPECIMEN Ordering Facility: [facility] Address: [address] [place] [address] Performed By: #### 5 7021-8, 4537-7 #### [facility] CLIA [id number] [address] [place] [address] [place] MCHC (RBC) [Mass/Vol] 32.6 g/dL Normal 30.5-36.0 [facility] Comment on above: Order Comment: Speci men Type: BLOOD SPECIMEN Ordering Facility: [facility] Address: [address] [place] [address] Performed By: #### 5 7021-8, 4537-7 #### [facility] CLIA [id number] [address] [place] [address] [place] MCV (RBC) [Entitic vol] 96.9 fL Normal 80.0-100.0 [facility] Comment on above: Order Comment: Speci men Type: BLOOD SPECIMEN Ordering Facility: [facility] Address: [address] [place] [address] Performed By: #### 5 7021-8, 4537-7 #### [facility] CLIA [id number] [address] [place] [address] [place] Monocytes (Bld) [#/Vol] 0.63 10*3/uL Normal <0.87 [facility] Comment on above: Order Comment: Speci men Type: BLOOD SPECIMEN Ordering Facility: [facility] Address: [address] [place] [address] Performed By: #### 5 7021-8, 4537-7 #### [facility] CLIA [id number] [address] [place] [address] [place] Monocytes/100 WBC (Bld) 7.2 % Normal [facility] Comment on above: Order Comment: Speci men Type: BLOOD SPECIMEN Ordering Facility: [facility] Address: [address] [place] [address] Performed By: #### 5 7021-8, 7-7 #### [facility] CLIA [id number] [address] [place] [address] [place] Neutrophils (Bld) [#/Vol] 6.20 10*3/uL Normal 1.45-7.50 [facility] Comment on above: Order Comment: Speci men Type: BLOOD SPECIMEN Ordering Facility: [facility] Address: [address] [place] [address] Performed By: #### 5 7021-8, 4536-7 #### [facility] CLIA [id number] [address] [place] [address] [place] Neutrophils/100 WBC (Bld) 71.2 % Normal [facility] Comment on above: Order Comment: Speci men Type: BLOOD SPECIMEN Ordering Facility: [facility] Address: [address] [place] [address] Performed By: #### 5 7021-8, 4536-7 #### [facility] CLIA [id number] [address] [place] [address] [place] Nucleated RBC (Bld) [#/Vol] 10*3/uL Normal <0.01 [facility] Comment on above: Order Comment: Speci men Type: BLOOD SPECIMEN Ordering Facility: [facility] Address: [address] [place] [address] Performed By: #### 5 7021-8, 7-7 #### [facility] CLIA [id number] [address] [place] [address] [place] Nucleated RBC/100 WBC (Bld) [Ratio] 0.0 /100 WBC Normal [facility] Comment on above: Order Comment: Speci men Type: BLOOD SPECIMEN Ordering Facility: [facility] Address: [address] [place] [address] Performed By: #### 5 7021-8, 4537-7 #### [facility] CLIA [id number] [address] [place] [address] [place] Platelet mean volume (Bld) [Entitic vol] 10.1 fL Normal 9.0-12.7 [facility] Comment on above: Order Comment: Speci men Type: BLOOD SPECIMEN Ordering Facility: [facility] Address: [address] [place] [address] Performed By: #### 5 7021-8, 4537-7 #### [facility] CLIA [id number] [address] [place] [address] [place] Platelets (Bld) [#/Vol] 270 10*3/uL Normal 150-400 [facility] Comment on above: Order Comment: Speci men Type: BLOOD SPECIMEN Ordering Facility: [facility] Address: [address] [place] [address] Performed By: #### 5 7021-8, 4537-7 #### [facility] CLIA [id number] [address] [place] [address] [place] RBC (Bld) [#/Vol] 4.18 10*6/uL Normal 3.90-5.20 [facility] Comment on above: Order Comment: Speci men Type: BLOOD SPECIMEN Ordering Facility: [facility] Address: [address] [place] [address] Performed By: #### 5 7021-8, 4537-7 #### [facility] CLIA [id number] [address] [place] [address] [place] WBC (Bld) [#/Vol] 8.72 10*3/uL Normal 3.70-11.00 [facility] Comment on above: Order Comment: Speci men Type: BLOOD SPECIMEN Ordering Facility: [facility] Address: [address] [place] [address] Performed By: #### 5 7021-8, 4537-7 #### [facility] CLIA [id number] [address] [place] [address] [facility] CNOVon 12-31-2024 CNOV Office Visit (RHEUMN) SORENSENBOBO ARIAS ([id number]) 1945 F Date Time Provider Department 12/31/24 10:00 AM GINNY NERI RHEUMN During your visit today, we recorded the following information about you: Temperature Pulse Blood pressure Weight 97.1 degrees 84/minute 176/70 71.2 kg Height 1.626 m Ginny Neri MD 12/31/2024 11:01 AM Signed Bobo Sorensen is a 79 year old female. Consultation was requested by Dr. Perez for an opinion regarding headache; my final assessment and recommendations will be communicated back to the requesting physician by way of shared medical record, or by letter via fax or [place] mail. Evaluation Date: 12/26/2024 Chief Complaint: Headache HPI: History was obtained from the patient and from outside records. Bobo Sorensen dates her history back to 2020. She was diagnosed with PMR in 2020 in [place] by Rheumatology. Managed with prednisone taper, started with 10 and currently on 2 mg. Since she moved to [place] 2 years ago, her PCP has been managing PMR. Tried to come off prednisone completely in May 2024. In September 2024, she started having mobility issue not joint pain. Checked ESR and was elevated. Since September she has been back on Prednisone. While she was off the prednisone, she noticed she has a sharp pain on the R temporal area. She denied any jaw claudication, vision loss or double vision. She follows with her sound effects person, last visit was a month ago, and exam was normal. She said she has a history of silent migraine (only gets visual aura) and has increase in frequency since September. After she is back on steroid her temporal pain is diminished. Noticed steroid affect her where she gets brain fog and nowadays is affecting her temper. PMHx: - HTN - Osteoporosis - PMR Ref Range AND Units 3 mo ago (09/26/24) 9 mo ago (03/19/24) 1 yr ago (12/17/23) 1 yr ago (09/12/23) 1 yr ago (05/21/23) 1 yr ago (03/06/23) Sed Rate, Westergren 0 - 30 mm/hr 39 High ROS PAST SURGICAL HISTORY: PAST SURGICAL HISTORY Procedure Laterality Date TOTAL ABDOM HYSTERECTOMY N/A 1983 CURRENT MEDICATIONS: Current Outpatient Medications Medication Sig predniSONE (DELTASONE) 1 mg tablet TAKE 2 TABLETS BY MOUTH ONCE DAILY. dilTIAZem CR (TIADYLT ER) 180 mg 24 hr capsule Take 1 capsule by mouth once daily. cholecalciferol (VITAMIN D-3) 50 mcg (2,000 unit) tablet Take 2,000 Units by mouth once daily. (Patient not taking: Reported on 11/26/2024) Mometasone 0.1 % solution Apply to affected area once daily. No current facility-administere d medications for this visit. ALLERGIES: Clindamycin and Sulfa (Sulfonamide Antibiotics) SOCIAL HISTORY: PHYSICAL EXAMINATION BP 176/70 Pulse 84 Temp 36.2 ?C (97.1 ?F) (Temporal) Ht 162.6 cm (5' 4.02) Wt 71.2 kg (156 lb 15.5 oz) LMP (LMP Unknown) BMI 26.93 kg/m? GENERAL APPEARANCE: well SKIN: normal without rashes or lesions HEAD: normal; temporal arteries with normal pulsation without nodularity or tenderness LUNGS: on RA. No acute distress HEART: RRR, no gallops, rubs or murmurs ABDOMEN: soft, non-tender, normal BS MUSCULOSKELETAL: OA nodules VASCULAR EXAM Carotid: normal and equal bilaterally Brachial: normal and equal bilaterally Radial: normal and equal bilaterally Dorsalis pedis: normal and equal bilaterally Bruit over large vessels: negative NEURO: normal strength LE proximally and distally ASSESSMENT: Bobo Patel Sorensen dates her history back to 2020. She was diagnosed with PMR in 2020 in [place] by Rheumatology. Managed with prednisone taper, started with 10 and currently on 2 mg. Since she moved to [place] 2 years ago, her PCP has been managing PMR. Tried to come off prednisone completely in May 2024. In September 2024, she started having mobility issue not joint pain. Checked ESR and was elevated. Since September she has been back on Prednisone. New onset right sided temporal pain when she went off prednisone in the fall. Restarted 2 mg again by PCP because ESR went up to 39. Pain improved but still there - sometimes its positional when pending forward. She also reports more frequent silent migraine with aura and on the top of her head one spot of pain No claudication, visual loss, double vision, or clear PMR symptoms Repeat ESR of 24 after starting 2 mg of prednisone which causing mood changes and brain fog I discussed with her that overall I have low suspicion that she has GCA but since her APRs were elevated we will obtain TAUS and if its negative but APRs continue to be elevated we will consider TAB and LVV images such as MRA or CTA For now we will reduce prednisone to 1 mg Consult neurology to address migraine We will update her DXA scan and vit D level PT for thigh muscles Ginny Neri MD Rheumatology staff December 31, 2024 Referring Provider: GINNY NERI [[id number]] (more content not included)... Normal [facility] CRP SerPl-mCncon 12-31-2024 CRP [Mass/Vol] mg/L Normal <0.9 [facility] Comment on above: Order Comment: Speci men Type: BLOOD SPECIMEN Ordering Facility: [facility] Address: [address] [place] [address] Performed By: #### 1 988-5 34448-9 #### [facility] CLIA [id number] [address] [place] [address] [place] CRP [Mass/Vol]on 12-31-2024 Interpretation and review of laboratory results Normal [facility] Comprehensive metabolic 2000 panelon 12-31-2024 Albumin [Mass/Vol] 4.7 g/dL 3.9 - 4.9 g/dL [facility] ALP [Catalytic activity/Vol] 99 U/L 34 - 123 U/L [facility] ALT [Catalytic activity/Vol] 18 U/L 7 - 38 U/L [facility] Anion gap [Moles/Vol] 16 mmol/L High 8 - 15 mmol/L [facility] AST [Catalytic activity/Vol] 21 U/L 13 - 35 U/L [facility] Bilirubin [Mass/Vol] 0.5 mg/dL 0.2 - 1 .3 mg/dL [facility] Calcium [Mass/Vol] 9.6 mg/dL 8.5 - 10. 2 mg/dL [facility] Chloride [Moles/Vol] 106 mmol/L 98 - 10 7 mmol/L [facility] CO2 [Moles/Vol] 21 mmol/L Low 22 - 30 mmol/L [facility] Creatinine [Mass/Vol] 0.57 mg/dL Low 0.58 - 0.96 mg/dL [facility] GFR/1.73 sq M.predicted among non-blacks MDRD (S/P/Bld) [Vol rate/Area] 91 mL/min/{1.73_m2} - PINF [facility] Comment on above: Estimated Glomerular Filtration Rate (eGFR) is calculated using the 2020 CKD-EPI creatinine equation. This equation utilizes serum creatinine, sex, and age as parameters. The creatinine assay has traceable calibration to isotope dilution-mass spectrometry. Refer to KDIGO guidelines for clinical interpretation. In patients with unstable renal function, e.g. those with acute kidney injury, the eGFR may not accurately reflect actual GFR. Glucose [Mass/Vol] 87 mg/dL 74 - 99 mg/dL [facility] Comment on above: The [place] Diabete s Association (ADA) provides guidance for cutoff values for fasting glucose and random glucose. The ADA defines fasting as no caloric intake for at least 8 hours. Fasting plasma glucose results between 100 to 125 mg/dL indicate increased risk for diabetes (prediabetes). Fasting plasma glucose results greater than or equal to 126 mg/dL meet the criteria for diagnosis of diabetes. In the absence of unequivocal hyperglycemia, results should be confirmed by repeat testing. In a patient with classic symptoms of hyperglycemia or hyperglycemic crisis, random plasma glucose results greater than or equal to 200 mg/dL meet the criteria for diagnosis of diabetes. Reference: Standards of Medical Care in Diabetes 2016, [place] [employer] Association. Diabetes Care. 2016.39(Suppl 1). Interpretation and review of laboratory results Abnormal [facility] Potassium [Moles/Vol] 3.8 mmol/L 3.7 - 5.1 mmol/L [facility] Protein [Mass/Vol] 7.5 g/dL 6.3 - 8.0 g/dL [facility] Sodium [Moles/Vol] 143 mmol/L 136 - 144 mmol/L [facility] Urea nitrogen [Mass/Vol] 25 mg/dL High 7 - 21 mg/d L [facility] Albumin [Mass/Vol] 4.7 g/dL Normal 3.9-4.9 [facility] Comment on above: Order Comment: Speci men Type: BLOOD SPECIMEN Ordering Facility: [facility] Address: [address] [place] [address] Performed By: #### 1 988-5, 35977-6 #### [facility] CLIA [id number] [address] [place] [address] [place] ALP [Catalytic activity/Vol] 99 U/L Normal 34-123 [facility] Comment on above: Order Comment: Speci men Type: BLOOD SPECIMEN Ordering Facility: [facility] Address: [address] [place] [address] Performed By: #### 1 988-5, 54239-6 #### [facility] CLIA [id number] [address] [place] [address] [place] ALT [Catalytic activity/Vol] 18 U/L Normal 7-38 [facility] Comment on above: Order Comment: Speci men Type: BLOOD SPECIMEN Ordering Facility: [facility] Address: [address] [place] [address] Performed By: #### 1 988-5, 39718-3 #### [facility] CLIA [id number] [address] [place] [address] [place] Anion gap [Moles/Vol] 16 mmol/L High 8-15 [facility] Comment on above: Order Comment: Speci men Type: BLOOD SPECIMEN Ordering Facility: [facility] Address: [address] [place] [address] Performed By: #### 1 988-5, 97903-7 #### [facility] CLIA [id number] [address] [place], [place] [id number] [place] AST [Catalytic activity/Vol] 21 U/L Normal 13-35 [facility] Comment on above: Order Comment: Speci men Type: BLOOD SPECIMEN Ordering Facility: [facility] Address: [address] [place] [address] Performed By: #### 1 988-5, 36220-5 #### [facility] CLIA [id number] [address] [place] [address] [place] Bilirubin [Mass/Vol] 0.5 mg/dL Normal 0.2-1.3 [facility] Comment on above: Order Comment: Speci men Type: BLOOD SPECIMEN Ordering Facility: [facility] Address: [address] [place] [address] Performed By: #### 1 988-5, 09054-8 #### [facility] CLIA [id number] [address] [place] [address] [place] Calcium [Mass/Vol] 9.6 mg/dL Normal 8.5-10.2 [facility] Comment on above: Order Comment: Speci men Type: BLOOD SPECIMEN Ordering Facility: [facility] Address: [address] [place] [address] Performed By: #### 1 988-5, 00436-4 #### [facility] CLIA [id number] [address] [place] [address] [place] Chloride [Moles/Vol] 106 mmol/L Normal 98-107 [facility] Comment on above: Order Comment: Speci men Type: BLOOD SPECIMEN Ordering Facility: [facility] Address: [address] [place] [address] Performed By: #### 1 988-5, 75078-5 #### [facility] CLIA [id number] [address] [place], [place] [address] [place] CO2 [Moles/Vol] 21 mmol/L Low 22-30 [facility] Comment on above: Order Comment: Speci men Type: BLOOD SPECIMEN Ordering Facility: [facility] Address: [address] [place] [address] Performed By: #### 1 988-5, 99084-9 #### [facility] CLIA [id number] [address] [place] [address] [place] Creatinine [Mass/Vol] 0.57 mg/dL Low 0.58-0.96 [facility] Comment on above: Order Comment: Speci men Type: BLOOD SPECIMEN Ordering Facility: [facility] Address: [address] [place] [address] Performed By: #### 1 988-5, #### [facility] CLIA [id number] [address] [place] [address] [place] Creatinine and Glomerular filtration rate.predicted panel (S/P/Bld) 91 mL/min/1.73m??? Normal >=60 [facility] Comment on above: Order Comment: Speci men Type: BLOOD SPECIMEN Ordering Facility: [facility] Address: [address] [place] [address] Result Comment: Gale mated Glomerular Filtration Rate (eGFR) is calculated using the 2020 CKD-EPI creatinine equation. This equation utilizes serum creatinine, sex, and age as parameters. The creatinine assay has traceable calibration to isotope dilution-mass spectrometry. Refer to KDIGO guidelines for clinical interpretation. In patients with unstable renal function, e.g. those with acute kidney injury, the eGFR may not accurately reflect actual GFR. Performed By: #### 1 988-5, 79436-1 #### [facility] CLIA [id number] [address] [place] [address] [place] Glucose [Mass/Vol] 87 mg/dL Normal 74-99 [facility] Comment on above: Order Comment: Speci men Type: BLOOD SPECIMEN Ordering Facility: [facility] Address: [address], [place] [address] Result Comment: The [place] Diabetes Association (ADA) provides guidance for cutoff values for fasting glucose and random glucose. The ADA defines fasting as no caloric intake for at least 8 hours. Fasting plasma glucose results between 100 to 125 mg/dL indicate increased risk for diabetes (prediabetes). Fasting plasma glucose results greater than or equal to 126 mg/dL meet the criteria for diagnosis of diabetes. In the absence of unequivocal hyperglycemia, results should be confirmed by repeat testing. In a patient with classic symptoms of hyperglycemia or hyperglycemic crisis, random plasma glucose results greater than or equal to 200 mg/dL meet the criteria for diagnosis of diabetes. Reference: Standards of Medical Care in Diabetes 2016, [place] [employer]. Diabetes Care. 2016.39(Suppl 1). Performed By: #### 1 988-5, 66505-1 #### [facility] CLIA [id number] [address] [place] [address] [place] Potassium [Moles/Vol] 3.8 mmol/L Normal 3.7-5.1 [facility] Comment on above: Order Comment: Speci men Type: BLOOD SPECIMEN Ordering Facility: [facility] Address: [address] [place] [address] Performed By: #### 1 988-5, 87012-9 #### [facility] CLIA [id number] [address] [place] [address] [place] Protein [Mass/Vol] 7.5 g/dL Normal 6.3-8.0 [facility] Comment on above: Order Comment: Speci men Type: BLOOD SPECIMEN Ordering Facility: [facility] Address: [address] [place] [address] Performed By: #### 1 988-5, 60287-3 #### [facility] CLIA [id number] [address] [place] [address] [place] Sodium [Moles/Vol] 143 mmol/L Normal 136-144 [facility] Comment on above: Order Comment: Speci men Type: BLOOD SPECIMEN Ordering Facility: [facility] Address: [address] [place] [address] Performed By: #### 1 988-5, 33995-1 #### [facility] CLIA [id number] [address] [place] [address] [place] Urea nitrogen [Mass/Vol] 25 mg/dL High 7-21 [facility] Comment on above: Order Comment: Speci men Type: BLOOD SPECIMEN Ordering Facility: [facility] Address: [address] [place] [address] Performed By: #### 1 988-5, 57440-8 #### [facility] [facility] CLIA [id number] [address] [place] [address] [place] ESR Westergren method (Bld) [Velocity]on 12-31-2024 ESR (Bld) [Velocity] 22 mm/h High [facility] Interpretation and review of laboratory results Abnormal [facility] ESR (Bld) [Velocity] 22 mm/h High 0-20 [facility] Comment on above: Order Comment: Speci men Type: BLOOD SPECIMEN Ordering Facility: [facility] Address: [address] [place] [address] Performed By: #### 5 7021-8, 4537-7 #### [facility] CLIA [id number] [address] [place] [address] [place] No Panel Informationon 12-31 [facility] VITAMIN D 25 HYDROXYon 12-31 25-hydroxyvitamin D3 [Mass/Vol] 26.6 ng/mL Low 31.0 - 80.0 ng/mL [facility] Comment on above: Classification of 25 [place] Vitamin D status: Deficiency/Insufficiency: < or = 30 ng/ml. Sufficiency/Optimal Levels: 31-80 ng/mL Toxicity: > 100 ng/mL. Test performed by chemiluminescent immunoassay. [place] 12-01-2024 [place] Tele[place] ([facility]) BOBO SORENSEN ([id number]) 1945 F Date Time Provider Department 12/01/24 GELY PEREZ During your visit today, we recorded the following information about you: Chirag Whittaker LPN 12/01/2024 3:50 PM Signed Referral for [place] [facility] sent through [facility] Chirag Whittaker LPN December 01, 2024 3:50 PM Allergies As of Date: 12/01/2024 Noted Allergy Reaction CLINDAMYCIN 02/02/2023 7 - Swelling SULFA (SULFONAMIDE ANTIBIOTICS) 02/02/2023 16 - Unknown Date Reviewed: 11/26/2024 Reviewed by: Karla García LPN - Fully Assessed Reason for Visit: Referral Information [4063] Prescriptions as of 12/04/2024 - predniSONE (DELTASONE) 1 mg tablet TAKE 2 TABLETS BY MOUTH ONCE DAILY. - dilTIAZem CR (TIADYLT ER) 180 mg 24 hr capsule Take 1 capsule by mouth once daily. - cholecalciferol (VITAMIN D-3) 50 mcg (2,000 unit) tablet Take 2,000 Units by mouth once daily. - Mometasone 0.1 % solution Apply to affected area once daily. Problem List As Of Date 12/01/2024 Noted Resolved Hypertension, essential [I10] 03/06/2023 PMR (polymyalgia rheumatica) (HCC) [M35.3] 03/06/2023 Tremor [R25.1] 05/21/2023 Letter Text Encounter Status:Closed by CARLINE WHITTAKER LAUREN on 12/01/24 [facility] CNOVon 11-26-2024 CNOV Office Visit ([facility]) BOBO SORENSEN ([id number]) 1945 F Date Time Provider Department 11/26/24 10:10 AM GELY PEREZ During your visit today, we recorded the following information about you: Temperature Pulse Respiration Blood pressure 97 degrees 66/minute 16/minute 150/86 Weight Height 71.3 kg 1.626 m Karla García LPN 11/30/2024 8:19 PM Signed Bobo is back on Prednisone 2 mg daily for polymyalgia Rheumatica She is having brain fog and balance problems She is also having a lot of anger issues and she said that is just not me. No refills needed Karla García LPN November 26, 2024 10:19 AM Gely Perez MD 11/30/2024 8:19 PM Signed Subjective Bobo is an 79-year-old female with a history of PMR, presenting for evaluation of side effects from Prednisone and new onset cephalalgia. PMR: - Currently taking Prednisone 2 mg daily. - Reports increased irritability and brain fog since resuming Prednisone. - Denies pain, but notes stiffness and difficulty with mobility, particularly when getting up and down from chairs. - Previous ESR readings were around 42 mm/hr, considered normal by [facility] in [place]. Cephalalgia: - New onset of really bad pains in the head, initially fleeting but now lasting longer. - Pain is localized and does not resemble previous migraine episodes. - Has a history of migraines and silent migraines, with 5 episodes this year. 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 - Feels the right eye is compensating for the left. - Next appointment with the retina specialist is on the . Review of Systems GENERAL: No weight loss, malaise or fevers. 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 NECK: Negative for lumps, goiter, pain and significant neck swelling. RESPIRATORY: Negative for cough, dyspnea or shortness of breath. CARDIOVASCULAR: Negative for chest pain, leg swelling, CHF or palpitations. GI: No nausea, vomiting, diarrhea, heartburn, abdominal pain, blood in stool or black stool. GENITOURINARY: No history of dysuria, frequency or incontinence. MUSCULOSKELETAL: Negative for joint pain or swelling, or muscle pain. No back pain. Positive for stiffness with mobility difficulties. SKIN: Negative for lesions, rash and itching. PSYCH: Positive for irritability and anger, negative for anxiety or depression. HEMATOLOGY/LYMPHOLOG Y: No bleeding concerns. NEURO: Positive for head pain, balance problems and ?brain fog.? Negative for syncope, paralysis, seizures or tremors. ENDOCRINE: No history of polydipsia, increased thirst or other endocrine symptoms. PAST SURGICAL HISTORY Procedure Laterality Date TOTAL ABDOM HYSTERECTOMY N/A 1983 History reviewed. No pertinent past medical history. History reviewed. No pertinent family history. Social History Tobacco Use Smoking status: Never Passive exposure: Never Smokeless tobacco: Never Vaping Use Vaping status: Never Used Substance Use Topics Alcohol use: Not Currently Drug use: Not Currently ALLERGIES Allergen Reactions Clindamycin Swelling Sulfa (Sulfonamide * Unknown MEDICATIONS: predniSONE (DELTASONE) 1 mg tablet TAKE 2 TABLETS BY MOUTH ONCE DAILY. dilTIAZem CR (TIADYLT ER) 180 mg 24 hr capsule Take 1 capsule by mouth once daily. Mometasone 0.1 % solution Apply to affected area once daily. cholecalciferol (VITAMIN D-3) 50 mcg (2,000 unit) tablet Take 2,000 Units by mouth once daily. (Patient not taking: Reported on 11/26/2024) Allergies, past surgical history, family history and past medical history were reviewed per this encounter. Medications were reviewed and verified. 09/24/2024 11/26/2024 INTAKE PAIN ASSESSMENT Are you having pain associated with your visit today? No No If pain assessment is 0, no action needed. If pain assessment is positive, please see assessment and plain. Objective Labs: - ESR: 42 mm/hr (slightly elevated) BP (P) 158/80 (BP Site: Left Arm, BP Position: Sitting, BP Cuff Size: Large Adult) Pulse 66 Temp 36.1 ?C (97 ?F) (Temporal) Resp 16 Ht 162.6 cm (5' 4) Wt 71.3 kg (157 lb 3.2 oz) LMP (LMP Unknown) SpO2 97% BMI 26.98 kg/m? Physical Exam GENERAL: NAD, alert and oriented. SKIN: Unremarkable, no rash or skin lesions. HEAD: Normocephalic, no tenderness noted. EYES: PERRLA, EOMI, conjunctiva clear. EARS: External ears normal, canals clear, TM's normal. NOSE/SINUSES: Nares normal. Septum midline. OROPHARYNX: Lips, mucosa, and tongue normal, good dentition. No oral lesions noted. NECK: Supple, no lymphadenopathy, normal thyroid, no carotid bruits. LUNGS: Clear to auscultation bilaterally, no (more content not included)... Normal [facility] ESR Westergren method (Bld) [Velocity]on 11-19-2024 ESR (Bld) [Velocity] 24 mm/h Normal 0-30 [facility] Comment on above: Order Comment: Speci men Type: BLOOD SPECIMENOrdering Facility: [facility] Address: [address] [place] [address] Performed By: #### 4 537-7 ####[facility]ATORYCLIA [id number] [place] [address] [place] 25(OH)D3 SerPl-ncon 2024 25-hydroxyvitamin D3 [Mass/Vol] 33.3 ng/mL Normal 30.0-100.0 [facility] Comment on above: Order Comment: Speci men Type: BLOOD SPECIMENOrdering Facility: [facility] Address: [address] [place] [address] Result Comment: Defi ciency\X09\Less than 20 ng/mL Insufficiency\X09\20 - Less than 30 ng/mL Sufficiency\X09\30 - 100 ng/mL Performed By: #### 1 989-3 ####[facility]ATORYCLIA [id number] [place] [address] [place] CBC W Auto Differential pane l (Bld)on 09-26-2024 Basophils (Bld) [#/Vol] 0.08 10*3/uL Normal <0.11 [facility] Comment on above: Order Comment: Speci men Type: BLOOD SPECIMENOrdering Facility: [facility] Address: [address] [place] [address] Performed By: #### 5 7021-8 ####[facility]ORATORYCLIA [id number] [place] [address] [place] Basophils/100 WBC (Bld) 1.1 % Normal [facility] Comment on above: Order Comment: Speci men Type: BLOOD SPECIMENOrdering Facility: [facility] Address: [address] [place] [address] Performed By: #### 5 7021-8 ####[facility]ATORYCLIA [id number] [place] [address] [place] Differential cell count method Nom (Bld) Auto Normal [facility] Comment on above: Order Comment: Speci men Type: BLOOD SPECIMENOrdering Facility: [facility] Address: [address] [place] [address] Performed By: #### 5 7021-8 ####[facility]ATORYCLIA [id number] [place] [address] [place] Eosinophils (Bld) [#/Vol] 0.48 10*3/uL High <0.46 [facility] Comment on above: Order Comment: Speci men Type: BLOOD SPECIMENOrdering Facility: [facility] Address: [address] [place] [address] Performed By: #### 5 7021-8 ####[facility]ORATORYCLIA [id number] [address] [place] Eosinophils/100 WBC (Bld) 6.6 % Normal [facility] Comment on above: Order Comment: Speci men Type: BLOOD SPECIMENOrdering Facility: [facility] Address: [address] [place] [address] Performed By: #### 5 7021-8 ####[facility]ORATORYCLIA [id number] [address] [place] Erythrocyte distribution width (RBC) [Ratio] 13.4 % Normal 11.5-15.0 [facility] Comment on above: Order Comment: Speci men Type: BLOOD SPECIMENOrdering Facility: [facility] Address: [address] [place] [address] Performed By: #### 5 7021-8 ####[facility]ORATORYCLIA [id number] [place] [id number] [place] Hematocrit (Bld) [Volume fraction] 40.6 % Normal 36.0-46.0 [facility] Comment on above: Order Comment: Speci men Type: BLOOD SPECIMENOrdering Facility: [facility] Address: [address] [place] [address] Performed By: #### 5 7021-8 ####[facility]ORATORYCLIA [id number] [place] [address] [place] Hemoglobin (Bld) [Mass/Vol] 13.2 g/dL Normal 11.5-15.5 [facility] Comment on above: Order Comment: Speci men Type: BLOOD SPECIMENOrdering Facility: [facility] Address: [address] [place] [address] Performed By: #### 5 7021-8 ####[facility]ORATORYCLIA [id number] [place] [address] [place] Immature granulocytes (Bld) [#/Vol] 10*3/uL Normal <0.10 [facility] Comment on above: Order Comment: Speci men Type: BLOOD SPECIMENOrdering Facility: [facility] Address: [address] [place] [address] Performed By: #### 5 7021-8 ####[facility]ORATORYCLIA [id number] [place] [address] [place] Immature granulocytes/100 WBC (Bld) 0.3 % Normal [facility] Comment on above: Order Comment: Speci men Type: BLOOD SPECIMENOrdering Facility: [facility] Address: [address] [place] [address] Performed By: #### 5 7021-8 ####[facility]ORATORYCLIA [id number] [place] [id number] [place] Lymphocytes (Bld) [#/Vol] 2.23 10*3/uL Normal 1.00-4.00 [facility] Comment on above: Order Comment: Speci men Type: BLOOD SPECIMENOrdering Facility: [facility] Address: [address] [place] [address] Performed By: #### 5 7021-8 ####[facility]ORATORYCLIA [id number] [address] [place] Lymphocytes/100 WBC (Bld) 30.9 % Normal [facility] Comment on above: Order Comment: Speci men Type: BLOOD SPECIMENOrdering Facility: [facility] Address: [address] [place] [address] Performed By: #### 5 7021-8 ####[facility]ORATORYCLIA [id number] [place] [address] [place] MCH (RBC) [Entitic mass] 30.9 pg Normal 26.0-34.0 [facility] Comment on above: Order Comment: Speci men Type: BLOOD SPECIMENOrdering Facility: [facility] Address: [address] [place] [address] Performed By: #### 5 7021-8 ####[facility]ORATORYCLIA [id number] [place] [address] [place] MCHC (RBC) [Mass/Vol] 32.5 g/dL Normal 30.5-36.0 [facility] Comment on above: Order Comment: Speci men Type: BLOOD SPECIMENOrdering Facility: [facility] Address: [address] [place] [address] Performed By: #### 5 7021-8 ####[facility]ORATORYCLIA [id number] [place] [address] [place] MCV (RBC) [Entitic vol] 95.1 fL Normal 80.0-100.0 [facility] Comment on above: Order Comment: Speci men Type: BLOOD SPECIMENOrdering Facility: [facility] Address: [address] [place] [address] Performed By: #### 5 7021-8 ####[facility]ORATORYCLIA [id number] [place] [address] [place] Monocytes (Bld) [#/Vol] 0.86 10*3/uL Normal <0.87 [facility] Comment on above: Order Comment: Speci men Type: BLOOD SPECIMENOrdering Facility: [facility] Address: [address] [place] [address] Performed By: #### 5 7021-8 ####[facility]ORATORYCLIA [id number] [place] [id number] [place] Monocytes/100 WBC (Bld) 11.9 % Normal [facility] Comment on above: Order Comment: Speci men Type: BLOOD SPECIMENOrdering Facility: [facility] Address: [address] [place] [address] Performed By: #### 5 7021-8 ####[facility]ORATORYCLIA [id number] [place] [address] [place] Neutrophils (Bld) [#/Vol] 3.55 10*3/uL Normal 1.45-7.50 [facility] Comment on above: Order Comment: Speci men Type: BLOOD SPECIMENOrdering Facility: [facility] Address: [address] [place] [address] Performed By: #### 5 7021-8 ####[facility]ORATORYCLIA [id number] [place] [address] [place] Neutrophils/100 WBC (Bld) 49.2 % Normal [facility] Comment on above: Order Comment: Speci men Type: BLOOD SPECIMENOrdering Facility: [facility] Address: [address] [place] [address] Performed By: #### 5 7021-8 ####[facility]ORATORYCLIA [id number] [place] [id number] [place] Nucleated RBC (Bld) [#/Vol] 10*3/uL Normal <0.01 [facility] Comment on above: Order Comment: Speci men Type: BLOOD SPECIMENOrdering Facility: [facility] Address: [address] [place] [address] Performed By: #### 5 7021-8 ####[facility]ORATORYCLIA [id number] [place] [address] [place] Nucleated RBC/100 WBC (Bld) [Ratio] 0.0 /100 WBC Normal [facility] Comment on above: Order Comment: Speci men Type: BLOOD SPECIMENOrdering Facility: [facility] Address: [address] [place] [address] Performed By: #### 5 7021-8 ####[facility]ORATORYCLIA [id number] [place] [id number] [place] Platelet mean volume (Bld) [Entitic vol] 10.7 fL Normal 9.0-12.7 [facility] Comment on above: Order Comment: Speci men Type: BLOOD SPECIMENOrdering Facility: [facility] Address: [address] [place] [address] Performed By: #### 5 7021-8 ####[facility]ORATORYCLIA [id number] [place] [id number] [place] Platelets (Bld) [#/Vol] 281 10*3/uL Normal 150-400 [facility] Comment on above: Order Comment: Speci men Type: BLOOD SPECIMENOrdering Facility: [facility] Address: [address] [place] [address] Performed By: #### 5 7021-8 ####[facility]ORATORYCLIA [id number] [place] [address] [place] RBC (Bld) [#/Vol] 4.27 10*6/uL Normal 3.90-5.20 [facility] Comment on above: Order Comment: Speci men Type: BLOOD SPECIMENOrdering Facility: [facility] Address: [address] [place] [address] Performed By: #### 5 7021-8 ####[facility]ORATORYCLIA [id number] [place] [id number] [place] WBC (Bld) [#/Vol] 7.22 10*3/uL Normal 3.70-11.00 [facility] Comment on above: Order Comment: Speci men Type: BLOOD SPECIMENOrdering Facility: [facility] Address: [address] [place] [id number] Performed By: #### 5 7021-8 ####[facility]ORATORYCLIA [id number] [address] Comprehensive metabolic 2000 panelon 09-26-2024 Albumin [Mass/Vol] 4.1 g/dL Normal 3.2-5.0 [facility] Comment on above: Order Comment: Speci men Type: BLOOD SPECIMENOrdering Facility: [facility] Address: [address] [place] [address] Performed By: #### 3 016-3, 65546-1 ####[facility]ORATORYCLIA [id number] [address]#### 23692-6 ####[facility]ORATORYCLIA [id number] [address] LABCLIA [id number] [address] ALP [Catalytic activity/Vol] 111 U/L Normal 45-117 [facility] Comment on above: Order Comment: Speci men Type: BLOOD SPECIMENOrdering Facility: [facility] Address: [address] [place] [address] Performed By: #### 3 016-3, 71201-3 ####[facility]ORATORYCLIA [id number] [address]#### 17309-7 ####[facility]ORATORYCLIA [id number] [address] [place] LABCLIA [id number] [address] ALT [Catalytic activity/Vol] 22 U/L Normal 13-61 [facility] Comment on above: Order Comment: Speci men Type: BLOOD SPECIMENOrdering Facility: [facility] Address: [address] [place] [address] Result Comment: Resu lts may be falsely depressed after the administration of Sulfasalazine and/or Sulfapyridine. Performed By: #### 3 016-3, 93816-2 ####[facility]ORATORYCLIA [id number] [place] [address] [place]#### 87819-9 ####[facility]ORATORYCLIA [id number] [address] [place] LABCLIA [id number] [address] Anion gap [Moles/Vol] 11 mmol/L Normal 5-16 [facility] Comment on above: Order Comment: Speci men Type: BLOOD SPECIMENOrdering Facility: [facility] Address: [address] [place] [address] Performed By: #### 3 016-3, 42189-6 ####[facility]ORATORYCLIA [id number] [place] [address] [place]#### 17237-8 ####[facility]ORATORYCLIA [id number] [address] [place] LABCLIA [id number] [address] STATES [facility] AST [Catalytic activity/Vol] 23 U/L Normal 8-34 [facility] Comment on above: Order Comment: Speci men Type: BLOOD SPECIMENOrdering Facility: [facility] Address: [address] [place] [address] Result Comment: Resu lts may be falsely depressed after the administration of Sulfasalazine and/or Sulfapyridine. Performed By: #### 3 016-3, 62689-9 ####[facility]ORATORYCLIA [id number] [place] [address] [place]#### 41046-6 ####[facility]ORATORYCLIA [id number] [address] [place] LABCLIA [id number] [place] [address] [place] Bilirubin [Mass/Vol] 0.9 mg/dL Normal 0.2-1.0 [facility] Comment on above: Order Comment: Speci men Type: BLOOD SPECIMENOrdering Facility: [facility] Address: [address] [place] [address] Performed By: #### 3 016-3, 51387-7 ####[facility]ORATORYCLIA [id number] [place] [address] [place]#### 72214-1 ####[facility] LABORATORYCLIA [id number] [address] STATES [facility] [place] LABCLIA [id number] [place] [address] [place] Calcium [Mass/Vol] 9.6 mg/dL Normal 8.5-10.5 [facility] Comment on above: Order Comment: Speci men Type: BLOOD SPECIMENOrdering Facility: [facility] Address: [address] [place] [address] Performed By: #### 3 016-3, 19224-2 ####[facility] LABORATORYCLIA [id number] [place] [address] [place]#### 70891-4 ####[facility] LABORATORYCLIA [id number] [address] STATES [facility] [place] LABCLIA [id number] [place] [address] [place] Chloride [Moles/Vol] 106 mmol/L Normal 98-107 [facility] Comment on above: Order Comment: Speci men Type: BLOOD SPECIMENOrdering Facility: [facility] Address: [address] [place] [address] Performed By: #### 3 016-3, 40267-0 ####[facility] LABORATORYCLIA [id number] [place] [address] [place]#### 00597-5 ####[facility] LABORATORYCLIA [id number] [address] LABCLIA [id number] [address] CO2 [Moles/Vol] 25 mmol/L Normal 21-32 [facility] Comment on above: Order Comment: Speci men Type: BLOOD SPECIMENOrdering Facility: [facility] Address: [address] [place] [address] Performed By: #### 3 016-3, 72609-4 ####[facility] LABORATORYCLIA [id number] [address]#### 72714-7 ####[facility] LABORATORYCLIA [id number] [address] LABCLIA [id number] [address] Creatinine [Mass/Vol] 0.56 mg/dL Normal 0.51-0.95 [facility] Comment on above: Order Comment: Speci men Type: BLOOD SPECIMENOrdering Facility: [facility] Address: [address] [place] [address] Result Comment: Cheryle ents receiving either N-Acetylcysteine (NAC) or Metamizole prior to venipuncture, may have falsely depressed results. Performed By: #### 3 016-3, 44395-7 ####[facility] LABORATORYCLIA [id number] [address]#### 95970-1 ####[facility] LABORATORYCLIA [id number] [address] [place] LABCLIA [id number] [address] Creatinine and Glomerular filtration rate.predicted panel (S/P/Bld) 92 mL/min/1.73m??? Normal >=60 [facility] Comment on above: Order Comment: Ling wilder Type: BLOOD SPECIMENOrdering Facility: [facility] Address: [address] [facility] [place] [id number] Result Comment: Gale mated Glomerular Filtration Rate (eGFR) is calculated using the 2020 CKD-EPI creatinine equation. This equation utilizes serum creatinine, sex, and age as parameters. The creatinine assay has traceable calibration to isotope dilution-mass spectrometry. Refer to KDIGO guidelines for clinical interpretation. In patients with unstable renal function, e.g. those with acute kidney injury, the eGFR may not accurately reflect actual GFR. Performed By: #### 3 016-3, 55424-0 ####[facility] LABORATORYCLIA [id number] [address]#### 00405-4 ####[facility] LABORATORYCLIA [id number] [place] [id number] [facility] LABCLIA [id number] [place], [place] [address] [place] [address] Glucose [Mass/Vol] 91 mg/dL Normal 70-100 [facility] Comment on above: Order Comment: Ling wilder Type: BLOOD SPECIMENOrdering Facility: [facility] Address: [address] [place] [address] Result Comment: The [place] [employer] (ADA) provides guidance for cutoff values for fasting glucose and random glucose. The ADA defines fasting as no caloric intake for at least 8 hours. Fasting plasma glucose results between 100 to 125 mg/dL indicate increased risk for diabetes (prediabetes). Fasting plasma glucose results greater than or equal to 126 mg/dL meet the criteria for diagnosis of diabetes. In the absence of unequivocal hyperglycemia, results should be confirmed by repeat testing. In a patient with classic symptoms of hyperglycemia or hyperglycemic crisis, random plasma glucose results greater than or equal to 200 mg/dL meet the criteria for diagnosis of diabetes. Reference: Standards of Medical Care in Diabetes 2016, [place] [employer]. Diabetes Care. 2016.39(Suppl 1). Results may be falsely elevated after the administration of Sulfapyridine. Results may be falsely depressed after the administration of Sulfasalazine. Performed By: #### 3 016-3, ####[facility] LABORATORYCLIA [id number] [place] [id number] [place]#### 87823-5 ####[facility] LABORATORYCLIA [id number] [place] [address] [facility] [place] LABCLIA [id number] [place] [address] [place] Potassium [Moles/Vol] 3.7 mmol/L Normal 3.5-5.1 [facility] Comment on above: Order Comment: Speci men Type: BLOOD SPECIMENOrdering Facility: [facility] Address: [address] [place] [address] Performed By: #### 3 016-3, ####[facility] LABORATORYCLIA [id number] [place] [address] [place]#### 47326-2 ####[facility] LABORATORYCLIA [id number] [place] [id number] [place] [facility] LABCLIA [id number] [place] [address] [place] Protein [Mass/Vol] 7.5 g/dL Normal 6.0-8.5 [facility] Comment on above: Order Comment: Speci men Type: BLOOD SPECIMENOrdering Facility: [facility] Address: [address] [place], [place] [address] [address] Performed By: #### 3 016-3, ####[facility] LABORATORYCLIA [id number] [place] [id number] [place]#### 25885-8 ####[facility]ORATORYCLIA [id number] [place] [address] [place] [facility] [place] LABCLIA [id number] [place] [address] [place] Sodium [Moles/Vol] 142 mmol/L Normal 136-145 [facility] Comment on above: Order Comment: Speci men Type: BLOOD SPECIMENOrdering Facility: [facility] Address: [address] [place] [address] Performed By: #### 3 016-3, 16004-2 ####[facility] LABORATORYCLIA [id number] [address] [place]#### 43232-9 ####[facility] LABORATORYCLIA [id number] [address] LABCLIA [id number] [address] STATES [facility] Urea nitrogen [Mass/Vol] 21 mg/dL Normal 02-07 [facility] Comment on above: Order Comment: Speci men Type: BLOOD SPECIMENOrdering Facility: [facility] Address: [address] [place] [address] Performed By: #### 3 016-3, 32655-3 ####[facility] LABORATORYCLIA [id number] [address] [place]#### 38884-2 ####[facility] LABORATORYCLIA [id number] [address] LABCLIA [id number] [address] [facility] ESR Westergren method (Bld) [Velocity]on 09-26-2024 ESR (Bld) [Velocity] 39 mm/h High 0-30 [facility] Comment on above: Order Comment: Speci men Type: BLOOD SPECIMENOrdering Facility: [facility] Address: [address] [place], [place] [address] Performed By: #### 4 537-7 ####[facility] LABORATORYCLIA [id number] [place] [id number] [place] Lipid 1996 panelon Cholesterol [Mass/Vol] 220 mg/dL High 0-199 [facility] Comment on above: Order Comment: Speci men Type: BLOOD SPECIMENOrdering Facility: [facility] Address: [address] [place] [address] Result Comment: <200 mg/dL, Desirable 200-239 mg/dL, Borderline high >239 mg/dL, High Performed By: #### 3 016-3, 64973-0 ####[facility] LABORATORYCLIA [id number] [place] [address] [place]#### 67935-3 ####[facility] LABORATORYCLIA [id number] [address] [place] LABCLIA [id number] [address] Cholesterol in HDL [Mass/Vol] 67 mg/dL Normal >40 [facility] Comment on above: Order Comment: Speci men Type: BLOOD SPECIMENOrdering Facility: [facility] Address: [address] [place] [address] Result Comment: 40-5 9 mg/dL, Acceptable >59 mg/dL, High: Negative risk factor for coronary heart disease <40 mg/dL, Low: Positive risk factor for coronary heart disease Performed By: #### 3 016-3, 24866-3 ####[facility] LABORATORYCLIA [id number] [address] [place]#### 48971-3 ####[facility] LABORATORYCLIA [id number] [address] [place] LABCLIA [id number] [address] Cholesterol in LDL [Mass/Vol] 137 mg/dL High 0-129 [facility] Comment on above: Order Comment: Speci men Type: BLOOD SPECIMENOrdering Facility: [facility] Address: [address] [place] [address] Result Comment: <100 mg/dL, Optimal 100-129 mg/dL, Near optimal/above optimal 130-159 mg/dL, Borderline high 160-189 mg/dL, High >189 mg/dL, Very high Secondary prevention optimal LDL Cholesterol levels are recommended to be < 70 mg/dL Performed By: #### 3 016-3, 70646-6 ####[facility] LABORATORYCLIA [id number] [address]#### 60224-5 ####[facility] LABORATORYCLIA [id number] [address] [place] LABCLIA [id number] [address] Cholesterol in LDL/Cholesterol in HDL [Mass ratio] 2.04 {ratio} Normal <2.54 [facility] Comment on above: Order Comment: Speci men Type: BLOOD SPECIMENOrdering Facility: [facility] Address: [address] [place] [address] Result Comment: Refe rence: 1. National Cholesterol Education Program ATP III Guideline At-A-Glance Quick Desk Reference: National Heart, Lung, and Blood Anderson. National Institutes of Health. 2001: NIH Publication No. 01-3305. 2. An International Atherosclerosis Society position paper: global recommendations for the management of dyslipidemia: executive summary, Atherosclerosis. 2014: 232(2):410-413. Performed By: #### 3 016-3, 33090-2 ####[facility] LABORATORYCLIA [id number] [address]#### 05641-2 ####[facility] LABORATORYCLIA [id number] [address] [place] LABCLIA [id number] [address] Cholesterol in VLDL [Mass/Vol] 16 mg/dL Normal <30 [facility] Comment on above: Order Comment: Speci men Type: BLOOD SPECIMENOrdering Facility: [facility] Address: [address] [place] [address] Performed By: #### 3 016-3, 14607-2 ####[facility] LABORATORYCLIA [id number] [facility] [address]#### 19295-9 ####[facility] LABORATORYCLIA [id number] [address] [place] LABCLIA [id number] [address] Cholesterol non HDL [Mass/Vol] 153 mg/dL High <130 [facility] Comment on above: Order Comment: Speci men Type: BLOOD SPECIMENOrdering Facility: [facility] Address: [address] [place] [address] Result Comment: <130 mg/dL, Optimal 130-159 mg/dL, Near optimal/above optimal 160-189 mg/dL, Borderline high 190-219 mg/dL, High >219 mg/dL, Very high Secondary prevention optimal non HDL Cholesterol levels are recommended to be <100 mg/dL Performed By: #### 3 016-3, 59488-5 ####[facility] LABORATORYCLIA [id number] [address]#### 82448-7 ####[facility] LABORATORYCLIA [id number] [address] [place] LABCLIA [id number] [address] Cholesterol.total/Choles terol in HDL [Mass ratio] 3.28 {ratio} Normal <5.10 [facility] Comment on above: Order Comment: Speci men Type: BLOOD SPECIMENOrdering Facility: [facility] Address: [address] [place] [address] Performed By: #### 3 016-3, 18681-6 ####[facility] LABORATORYCLIA [id number] [address]#### 62018-3 ####[facility] LABORATORYCLIA [id number] [address] [place] LABCLIA [id number] [address] [place] FASTING TIME 12 hrs Normal [facility] Comment on above: Order Comment: Speci men Type: BLOOD SPECIMENOrdering Facility: [facility] Address: [address] [place] [address] Performed By: #### 3 016-3, 10172-2 ####[facility] LABORATORYCLIA [id number] [address]#### 81178-1 ####[facility] LABORATORYCLIA [id number] [place] [address] [facility] LABCLIA [id number] [address] STATES [facility] Triglyceride [Mass/Vol] 78 mg/dL Normal 30-149 [facility] Comment on above: Order Comment: Speci men Type: BLOOD SPECIMENOrdering Facility: [facility] Address: [address] [place] [address] Result Comment: <150 mg/dL, Normal 150-199 mg/dL, Borderline high 200-499 mg/dL, High >499 mg/dL, Very high Patients receiving either N-Acetylcysteine (NAC) or Metamizole prior to venipuncture, may have falsely depressed results. Performed By: #### 3 016-3, 12536-2 ####[facility] LABORATORYCLIA [id number] [address] [facility]#### 87998-7 ####[facility] LABORATORYCLIA [id number] [address] LABCLIA [id number] [place] [address] [place] TSH SerPl-aCncon 09-26-2024 TSH Qn 3.059 m[IU]/L Normal 0.358-3.740 [facility] Comment on above: Order Comment: Speci men Type: BLOOD SPECIMENOrdering Facility: [facility] Address: [address], [place] [address] Result Comment: 3rd generation ultra sensitive TSH. Performed By: #### 3 016-3, 10129-8 ####[facility] LABORATORYCLIA [id number] [place] [address] [facility]#### 71050-8 ####[facility] LABORATORYCLIA [id number] [address] LABCLIA [id number] [place] [address] [facility] CNOVon 09-24-2024 CNOV Office Visit (FAMMAS) SORENSENBOBO ARIAS ([id number]) 1945 F Date Time Provider Department 09/24/24 10:00 AM GELY PEREZ During your visit today, we recorded the following information about you: Temperature Pulse Respiration Blood pressure 97.1 degrees 66/minute 18/minute 120/78 Weight Height 71.7 kg 1.626 m Chirag Whittaker LPN 09/24/2024 11:03 AM Signed [employer] DTaP,Tdap,Td Vaccine(1 - Tdap) declined Shingrix Vaccine(1 of 2) declined Pneumococcal Vaccine: 50+(1 of 1 - PCV) declined Bone Density Screening Never RSV Vaccine(1 - 1-dose 75+ series) declined Influenza Vaccine(1) declined Covid-19 Vaccine( - season) declined Chirag Whittaker LPN September 24, 2024 10:15 AM Gely Perez MD 09/24/2024 11:03 AM Signed Subjective Bobo Patel Edu is a 79 year old female. She presents today for her Medicare wellness visit. Additionally she follows up for multiple medical problems. See list. Her blood pressures been under good control on her current medication. She has weaned off of her prednisone for treatment of her polymyalgia rheumatica. She is tolerating the wean mostly well. She does have some occasional pain in her thigh and her hip. He has continued eczema for which she uses the mometasone. This is helping. She complains of bilateral ankle swelling and swelling in her feet. She was previously on compression stockings. But she cannot get these on. Swelling is better in the morning worse at night. Review of Systems Constitutional: Negative. HENT: Negative. Eyes: Negative. Respiratory: Negative. Cardiovascular: Negative. Gastrointestinal: Negative. Endocrine: Negative. Genitourinary: Negative. Musculoskeletal: Negative. Skin: Negative. Allergic/Immunologic : Negative. Neurological: Negative. Hematological: Negative. Psychiatric/Behavior al: Negative. PAST SURGICAL HISTORY Procedure Laterality Date TOTAL ABDOM HYSTERECTOMY N/A 1983 History reviewed. No pertinent past medical history. History reviewed. No pertinent family history. Social History Tobacco Use Smoking status: Never Passive exposure: Never Smokeless tobacco: Never Vaping Use Vaping status: Never Used Substance Use Topics Alcohol use: Not Currently Drug use: Not Currently ALLERGIES Allergen Reactions Clindamycin Swelling Sulfa (Sulfonamide * Unknown MEDICATIONS: vit A/vit C/biotin/zinc/copper (AGVL-GAYG-YXVJ,VIT A,C-BIOTIN, ORAL) Take by mouth. dilTIAZem CR (TIADYLT ER) 180 mg 24 hr capsule Take 1 capsule by mouth once daily. cholecalciferol (VITAMIN D-3) 50 mcg (2,000 unit) tablet Take 2,000 Units by mouth once daily. Mometasone 0.1 % solution Apply to affected area once daily. Allergies, past surgical history, family history and past medical history were reviewed per this encounter. Medications were reviewed and verified. 03/19/2024 09/24/2024 INTAKE PAIN ASSESSMENT Are you having pain associated with your visit today? No No If pain assessment is 0, no action needed. If pain assessment is positive, please see assessment and plain. Objective BP 120/78 (BP Site: Left Arm, BP Position: Sitting, BP Cuff Size: Regular Adult) Pulse 66 Temp 36.2 ?C (97.1 ?F) (Temporal) Resp 18 Ht 162.6 cm (5' 4) Wt 71.7 kg (158 lb) LMP (LMP Unknown) SpO2 97% BMI 27.12 kg/m? Physical Exam Vitals reviewed. Constitutional: Appearance: Normal appearance. HENT: Head: Normocephalic and atraumatic. Nose: Nose normal. Eyes: Extraocular Movements: Extraocular movements intact. Pupils: Pupils are equal, round, and reactive to light. Cardiovascular: Rate and Rhythm: Normal rate and regular rhythm. Pulmonary: Effort: Pulmonary effort is normal. Breath sounds: Normal breath sounds. Abdominal: General: Bowel sounds are normal. Palpations: Abdomen is soft. Musculoskeletal: General: Normal range of motion. Cervical back: Normal range of motion and neck supple. Right lower leg: Edema present. Left lower leg: Edema present. Skin: General: Skin is warm and dry. Capillary Refill: Capillary refill takes less than 2 seconds. Neurological: General: No focal deficit present. Mental Status: She is alert and oriented to person, place, and time. Mental status is at baseline. Psychiatric: Mood and Affect: Mood normal. Behavior: Behavior normal. Procedures Assessment and Plan Encounter Diagnosis ICD-10-CM 1. Encounter for counseling regarding advance directives Z71.89 ADVANCE CARE PLAN DISCUSSION 2. Screening for depression Z13.31 DEPRESSION SCREENING 3. Encounter for screening examination for other mental health and behavioral disorders Z13.39 ANXIETY SCREENING 4. Vitamin D deficiency E55.9 VITAMIN D 25 HYDROXY 5. Lipid screening Z13.220 LIPID PANEL BASIC 6. Screening for deficiency anemia Z13.0 COMPLETE BLOOD COU (more content not included)... [facility] CNOVon 03-19-2024 CNOV Office Visit (SHERRIMAS) BOBO SORENSEN ([id number]) 1945 F Date Time Provider Department 03/19/24 10:30 AM GELY PEREZ During your visit today, we recorded the following information about you: Temperature Pulse Respiration Blood pressure 97.6 degrees 82/minute 18/minute 130/88 Weight Height 69.9 kg 1.626 m Chirag Whittaker LPN 03/19/2024 11:32 AM Signed Patient is in office for 6 month exam. Patient states this morning she had what she believes to be a panic attack. Patient states she really needs to get off of the prednisone she is taking for PMR. Chirag Whittaker LPN March 19, 2024 10:28 AM Gely Perez MD 03/19/2024 11:32 AM Signed Subjective Bobo Sorensen is a 78 year old female. She presents today for follow-up for her polymyalgia rheumatica. She has reduced her dose of prednisone to 2 mg for the last few months. She has tolerated this reduction well in terms of her PMR. She would like to get completely off of the prednisone. She believes it is making her feel more tired. She feels better on the days she misses her dose. Review of Systems Constitutional: Negative. HENT: Negative. Eyes: Negative. Respiratory: Negative. Cardiovascular: Negative. Gastrointestinal: Negative. Endocrine: Negative. Genitourinary: Negative. Musculoskeletal: Negative. Skin: Negative. Allergic/Immunologic : Negative. Neurological: Negative. Hematological: Negative. Psychiatric/Behavior al: Negative. PAST SURGICAL HISTORY 1984: TOTAL ABDOM HYSTERECTOMY; N/A History reviewed. No pertinent past medical history. History reviewed. No pertinent family history. Social History Tobacco Use Smoking status: Never Passive exposure: Never Smokeless tobacco: Never Vaping Use Vaping status: Never Used Substance Use Topics Alcohol use: Not Currently Drug use: Not Currently ALLERGIES Allergen Reactions Clindamycin Swelling Sulfa (Sulfonamide * Unknown MEDICATIONS: cholecalciferol (VITAMIN D-3) 50 mcg (2,000 unit) tablet Take 2,000 Units by mouth once daily. MULTIVITAMIN ORAL Take 1 tablet by mouth once daily. predniSONE (DELTASONE) 1 mg tablet Take 2 tablets by mouth once daily. Mometasone 0.1 % solution Apply to affected area once daily. dilTIAZem CR (TIADYLT ER) 180 mg 24 hr capsule Take 1 capsule by mouth once daily. Allergies, past surgical history, family history and past medical history were reviewed per this encounter. Medications were reviewed and verified. 12/17/2023 03/19/2024 INTAKE PAIN ASSESSMENT Are you having pain associated with your visit today? No No If pain assessment is 0, no action needed. If pain assessment is positive, please see assessment and plain. Objective BP 130/88 (BP Site: Left Arm, BP Position: Sitting, BP Cuff Size: Regular Adult) Pulse 82 Temp 36.4 ?C (97.6 ?F) (Temporal) Resp 18 Ht 162.6 cm (5' 4) Wt 69.9 kg (154 lb 3.2 oz) LMP (LMP Unknown) SpO2 98% BMI 26.47 kg/m? Physical Exam Vitals reviewed. Constitutional: Appearance: Normal appearance. HENT: Head: Normocephalic and atraumatic. Nose: Nose normal. Eyes: Extraocular Movements: Extraocular movements intact. Pupils: Pupils are equal, round, and reactive to light. Cardiovascular: Rate and Rhythm: Normal rate and regular rhythm. Pulmonary: Effort: Pulmonary effort is normal. Breath sounds: Normal breath sounds. Abdominal: General: Bowel sounds are normal. Palpations: Abdomen is soft. Musculoskeletal: General: Normal range of motion. Cervical back: Normal range of motion and neck supple. Skin: General: Skin is warm and dry. Capillary Refill: Capillary refill takes less than 2 seconds. Neurological: General: No focal deficit present. Mental Status: She is alert and oriented to person, place, and time. Mental status is at baseline. Psychiatric: Mood and Affect: Mood normal. Behavior: Behavior normal. Assessment and Plan Encounter Diagnosis ICD-10-CM 1. PMR (polymyalgia rheumatica) ([facility]) M35.3 SEDIMENTATION RATE, WESTERGREN 2. Hypertension, essential I10 Reduce dose of prednisone to 1 mg. May wean off of prednisone completely over the course of the next 3 months if tolerated. Recheck sed rate.. Monitor blood pressure regularly. Exercise as tolerated. Maintain good diet. Follow-up in 6 months. Gely Perez MD Allergies As of Date: 03/19/2024 Noted Allergy Reaction CLINDAMYCIN 02/02/2023 7 - Swelling SULFA (SULFONAMIDE ANTIBIOTICS) 02/02/2023 16 - Unknown Date Reviewed: 03/19/2024 Reviewed by: Chirag Whittaker LPN - Fully Assessed Reason for Visit: 6 Month Exam [189] Primary Visit Diagnosis:PMR (polymyalgia rheumatica) ([facility]) [M35.3] Other Visit Diagnosis:Hypertensi on, essential [I10] Order(s):dilTIAZem CR (TIADYLT ER) 180 mg 24 hr capsuleTake 1 capsule by mouth once daily.Disp: 90 capsuleRfl: 3 (more content not included)... Normal [facility] ESR Westergren method (Bld) [Velocity]Ordered By: Josefina Hall on 03-19-2024 ESR (Bld) [Velocity] 4 mm/h [facility] Interpretation and review of laboratory results Normal [facility] ESR Westergren method (Bld) [Velocity]on 03-19-2024 ESR (Bld) [Velocity] 4 mm/h Normal 0-30 [facility] Comment on above: Order Comment: Speci men Type: BLOOD SPECIMENOrdering Facility: [facility] Address: [address] [place] [address] Performed By: #### 4 537-7 ####[facility] LABORATORYCLIA [id number] [address] [facility] Morgan 12-24-2023 CNPN Telephone ([facility]) BOBO SORENSEN ([id number]) 1945 F Date Time Provider Department 12/24/23 DINA AGGARWAL [facility] During your visit today, we recorded the following information about you: Jorge Anguiano 12/24/2023 9:32 AM Signed Called patient to schedule an appointment to see Dr Aggarwal for ingrown nails, however I had to leave a VM Allergies As of Date: 12/24/2023 Noted Allergy Reaction CLINDAMYCIN 02/02/2023 7 - Swelling SULFA (SULFONAMIDE ANTIBIOTICS) 02/02/2023 16 - Unknown Date Reviewed: 12/17/2023 Reviewed by: Rachel Wang LPN - Fully Assessed Reason for Visit: Appointment [186] Prescriptions as of 12/24/2023 - cholecalciferol (VITAMIN D-3) 50 mcg (2,000 unit) tablet Take 2,000 Units by mouth once daily. - BIOTIN ORAL Take 1 tablet by mouth once daily. OTC - MULTIVITAMIN ORAL Take 1 tablet by mouth once daily. - dilTIAZem CR (TIADYLT ER) 180 mg 24 hr capsule Take 1 capsule by mouth once daily. - predniSONE (DELTASONE) 1 mg tablet Take 2 tablets by mouth once daily. - Mometasone 0.1 % solution Apply to affected area once daily. Problem List As Of Date 12/24/2023 Noted Resolved Hypertension, essential [I10] 03/06/2023 PMR (polymyalgia rheumatica) ([facility]) [M35.3] 03/06/2023 Tremor [R25.1] 05/21/2023 Encounter Status:Closed by JOR[facility]GUIANO [facility] BOBO SORENSEN ([id number]) 1945 F Date Time Provider Department 12/20/23 GELY PEREZ [facility] During your visit today, we recorded the following information about you: Allyson Fleming MA 12/20/2023 11:01 AM Signed Items addressed in this encounter: Fax/Forms Podiatry referral faxed to Dr Aggarwal [phone] Faxed via Right[employer]ax, fax confirmation received Able to close encounter. Allyson Fleming MA December 20, 2023 11:00 AM 11:00 AM Allergies As of Date: 12/20/2023 Noted Allergy Reaction CLINDAMYCIN 02/02/2023 7 - Swelling SULFA (SULFONAMIDE ANTIBIOTICS) 02/02/2023 16 - Unknown Date Reviewed: 12/17/2023 Reviewed by: Rachel Wang LPN - Fully Assessed Reason for Visit: Podiatry referral faxed to Dr Aggarwal [Other] Prescriptions as of 12/20/2023 - cholecalciferol (VITAMIN D-3) 50 mcg (2,000 unit) tablet Take 2,000 Units by mouth once daily. - BIOTIN ORAL Take 1 tablet by mouth once daily. OTC - MULTIVITAMIN ORAL Take 1 tablet by mouth once daily. - dilTIAZem CR (TIADYLT ER) 180 mg 24 hr capsule Take 1 capsule by mouth once daily. - predniSONE (DELTASONE) 1 mg tablet Take 2 tablets by mouth once daily. - Mometasone 0.1 % solution Apply to affected area once daily. Problem List As Of Date 12/20/2023 Noted Resolved Hypertension, essential [I10] 03/06/2023 PMR (polymyalgia rheumatica) ([facility]) [M35.3] 03/06/2023 Tremor [R25.1] 05/21/2023 Encounter Status:Closed by ALLYSON FLEMING on 12/20/23 [facility] CNPN Telephone ([facility]) BOBO SORENSEN ([id number]) 1945 F Date Time Provider Department 12/20/23 GELY PEREZ [facility] During your visit today, we recorded the following information about you: Allyson Fleming MA 12/20/2023 11:02 AM Signed Items addressed in this encounter: MyChart Encounter Podiatry referral Able to close encounter. Allyson Fleming MA December 20, 2023 11:02 AM 11:02 AM Allergies As of Date: 12/20/2023 Noted Allergy Reaction CLINDAMYCIN 02/02/2023 7 - Swelling SULFA (SULFONAMIDE ANTIBIOTICS) 02/02/2023 16 - Unknown Date Reviewed: 12/17/2023 Reviewed by: Rachel Wang LPN - Fully Assessed Prescriptions as of 12/20/2023 - cholecalciferol (VITAMIN D-3) 50 mcg (2,000 unit) tablet Take 2,000 Units by mouth once daily. - BIOTIN ORAL Take 1 tablet by mouth once daily. OTC - MULTIVITAMIN ORAL Take 1 tablet by mouth once daily. - dilTIAZem CR (TIADYLT ER) 180 mg 24 hr capsule Take 1 capsule by mouth once daily. - predniSONE (DELTASONE) 1 mg tablet Take 2 tablets by mouth once daily. - Mometasone 0.1 % solution Apply to affected area once daily. Problem List As Of Date 12/20/2023 Noted Resolved Hypertension, essential [I10] 03/06/2023 PMR (polymyalgia rheumatica) ([facility]) [M35.3] 03/06/2023 Tremor [R25.1] 05/21/2023 Encounter Status:Closed by ALLYSON FLEMING on 12/20/23 Normal [facility] 25(OH)D3 SerPl-mCncon 2023 25-hydroxyvitamin D3 [Mass/Vol] 31.6 ng/mL Normal 30.0-100.0 [facility] Comment on above: Order Comment: Speci men Type: BLOOD SPECIMEN Ordering Facility: [facility] Address: [address] [place] [address] Result Comment: Defi ciency\X09\Less than 20 ng/mL Insufficiency\X09\20 - Less than 30 ng/mL Sufficiency\X09\30 - 100 ng/mL Performed By: #### 1 989-3 #### [facility] CLIA [id number] [address] [place] [address] [place] 25-hydroxyvitamin D3 [Mass/V ol]on 12-17-2023 Interpretation and review of laboratory results Normal [facility] C-REACTIVE PROTEINon 024 CRP [Mass/Vol] mg/dL NINF - 1.0 mg/dL [facility] CNOVon 12-17-2023 CNOV Office Visit (FAMMAS) BOBO SORENSEN ([id number]) 1945 F Date Time Provider Department 12/17/23 11:10 AM GELY PEREZ During your visit today, we recorded the following information about you: Temperature Pulse Respiration Blood pressure 98.4 degrees 78/minute 16/minute 128/78 Weight Height 69.5 kg 1.626 m Rachel Wang LPN 12/17/2023 11:33 AM Signed Patient in the office today for a 3 month exam. LUIS: 09/10/2023 Medicare Wellness Exam: Continue current medications. Check labs as above. Mammogram order placed. Check sed rate. Reduce dose of prednisone to 2-1/2 mg if sed rate is normal. Stay on 2-1/2 mg for 1 to 3 months based upon results of reduction in medication. Follow-up in 3 months. Patient would like to discuss spine health. She also has pin sized blood spots on BLE after completing her antibiotic for a UTI. Patient also reports random elevated temperatures that last for a day or 2 then resolve without other symptoms. Refill entered. Rachel Wang LPN December 17, 2023 11:11 AM Gely Perez MD 12/17/2023 11:33 AM Signed Subjective Bobo Sorensen is a 78 year old female.The patient presents today for follow-up for multiple medical problems. See list. Her chronic medical problems have been stable. Her blood pressure is under good control. Additionally she complains today of eczema. She has on her arm and her ear. She has previously used an mometasone solution. Her PMR has been stable on the reduction in her dose to 2 and half milligrams of prednisone daily.. Review of Systems Constitutional: Negative. HENT: Negative. Eyes: Negative. Respiratory: Negative. Cardiovascular: Negative. Gastrointestinal: Negative. Endocrine: Negative. Genitourinary: Negative. Musculoskeletal: Negative. Skin: Negative. Allergic/Immunologic : Negative. Neurological: Negative. Hematological: Negative. Psychiatric/Behavior al: Negative. PAST SURGICAL HISTORY Procedure Laterality Date TOTAL ABDOM HYSTERECTOMY N/A 1984 History reviewed. No pertinent past medical history. History reviewed. No pertinent family history. Social History Tobacco Use Smoking status: Never Passive exposure: Never Smokeless tobacco: Never Vaping Use Vaping Use: Never used Substance Use Topics Alcohol use: Not Currently Drug use: Not Currently ALLERGIES Allergen Reactions Clindamycin Swelling Sulfa (Sulfonamide * Unknown MEDICATIONS: cholecalciferol (VITAMIN D-3) 50 mcg (2,000 unit) tablet Take 2,000 Units by mouth once daily. BIOTIN ORAL Take 1 tablet by mouth once daily. OTC MULTIVITAMIN ORAL Take 1 tablet by mouth once daily. dilTIAZem CR (TIADYLT ER) 180 mg 24 hr capsule Take 1 capsule by mouth once daily. predniSONE (DELTASONE) 1 mg tablet Take 2 tablets by mouth once daily. Mometasone 0.1 % solution Apply to affected area once daily. Allergies, past surgical history, family history and past medical history were reviewed per this encounter. Medications were reviewed and verified. Objective BP 128/78 (BP Site: Left Arm, BP Position: Sitting, BP Cuff Size: Large Adult) Pulse 78 Temp 36.9 ?C (98.4 ?F) (Temporal) Resp 16 Ht 162.6 cm (5' 4) Wt 69.5 kg (153 lb 2 oz) LMP (LMP Unknown) SpO2 98% BMI 26.28 kg/m? Physical Exam Vitals reviewed. Constitutional: Appearance: Normal appearance. HENT: Head: Normocephalic and atraumatic. Nose: Nose normal. Eyes: Extraocular Movements: Extraocular movements intact. Pupils: Pupils are equal, round, and reactive to light. Cardiovascular: Rate and Rhythm: Normal rate and regular rhythm. Pulmonary: Effort: Pulmonary effort is normal. Breath sounds: Normal breath sounds. Abdominal: General: Bowel sounds are normal. Palpations: Abdomen is soft. Musculoskeletal: General: Normal range of motion. Cervical back: Normal range of motion and neck supple. Skin: General: Skin is warm and dry. Capillary Refill: Capillary refill takes less than 2 seconds. Neurological: General: No focal deficit present. Mental Status: She is alert and oriented to person, place, and time. Mental status is at baseline. Psychiatric: Mood and Affect: Mood normal. Behavior: Behavior normal. Assessment and Plan Encounter Diagnosis ICD-10-CM 1. PMR (polymyalgia rheumatica) ([facility]) M35.3 SEDIMENTATION RATE, [place] C-REACTIVE PROTEIN 2. Ingrown nail L60.0 CONSULT TO PODIATRY 3. Vitamin D deficiency E55.9 VITAMIN D 25 HYDROXY Mometasone solution for eczema. Otherwise continue present medications. Check labs as above. Monitor blood pressure regularly. Exercise as tolerated. Maintain good diet. Follow-up in 6 months. Gely Perez MD Allergies As of Date: 12/17/2023 Noted Allergy Reaction CLINDAMYCIN 02/02/2023 7 - Swelling SULFA (SULFONAMIDE ANTIBIOTICS) 02/02/2023 16 - Unknown Date Reviewed: (more content not included)... Normal [facility] CRP SerPl-mCncon 12-17-2023 CRP [Mass/Vol] mg/L Normal <1.0 [facility] Comment on above: Order Comment: Specbalwinder wilder Type: BLOOD SPECIMEN Ordering Facility: [facility] Address: [address] [place], [place] [address] Performed By: #### 1 988-5 #### [facility] CLIA [id number] [address] [place] [address] [place] CRP [Mass/Vol]on 12-17-2023 Interpretation and review of laboratory results Normal [facility] ESR Westergren method (Bld) [Velocity]Ordered By: Mary Ann Griffith on 12-17-2023 ESR (Bld) [Velocity] 17 mm/h [facility] Interpretation and review of laboratory results Normal [facility] ESR Westergren method (Bld) [Velocity]on 12-17-2023 ESR (Bld) [Velocity] 17 mm/h Normal 0-30 [facility] Comment on above: Order Comment: Specbalwinder wilder Type: BLOOD SPECIMEN Ordering Facility: [facility] Address: [address] [place] [address] Performed By: #### 4 537-7 #### [facility] CLIA [id number] [address] [place], [place] [id number] [place] VITAMIN D 25 HYDROXYon 12-16 25-hydroxyvitamin D3 [Mass/Vol] 31.6 ng/mL 30.0 - 100.0 ng/mL [facility] Comment on above: Deficiency Less than 20 ng/mL Insufficiency 20 - Less than 30 ng/mL Sufficiency 30 - 100 ng/mL URINALYSIS, DIPSTICK ONLYOrd ered By: Gm Gunderson on 11-30-2023 Bilirubin Ql (U) Negative Negative [facility] Clarity (Unsp spec) Slightly Cloudy Abnormal Clear [facility] Color (U) Straw Yellow [facility] Glucose Test strip (U) [Mass/Vol] Negative Negative [facility] Hemoglobin Ql (U) 3+ Abnormal Negative [facility] Interpretation and review of laboratory results Abnormal [facility] Ketones Ql (U) Negative Negative [facility] Leukocyte esterase Test strip Ql (U) 3+ Abnormal Negative [facility] Nitrite Ql (U) Negative Negative [facility] pH (U) 6.0 [pH] 5.0 - 8.0 [facility] Protein (U) [Mass/Vol] Negative Negative [facility] Specific gravity (U) [Rel density] 1.005 1.005 - 1.030 [facility] Urobilinogen Ql (U) Negative Negative [facility] ESR Westergren method (Bld) [Velocity]on 05-21-2023 ESR (Bld) [Velocity] 16 mm/h 0 - 30 mm/hr [facility] Basophil percentageOrdered B y: Heladio Parada on 02-02-2023 Basophil percentage 50-100 SEEN /hpf 0-5 [facility] Bilirubin Test strip Ql (U)O rdered By: Heladio Parada on 02-02-2023 Bilirubin Ql (U) Negative Negative [facility] Emergency Department Summary on 02-02-2023 Emergency Department Summary [facility] Medical Records Department [address] [place] [id number] Emergency Department Summary 02/02/23 MR#: [id number] Acct: [id number] Name: BOBO SORENSEN Rep #: [id number] : 1945 77 From: Heladio Parada DO PCP: Care Physician,No Primary Status:DEP ER Location: ED HPI HPI - Female History of Present Illness Chief Complaint: Complaint Narrative Narrative: 77-year-old female presenting with dysuria, urinary frequency. She states she thought she had a low-grade fever of about 100 yesterday. She has not take anything for fever today and has not had a recurrence. She feels a little bit unwell but not nauseous. She states has been drinking plenty of fluids. She states she recently traveled cross-country from [place] by car. She reports that she stopped every 3 hours to use the restroom. She was drinking plenty of fluids throughout the day traveling. She spent about 8 hours a day in the car. She states she was not holding in her urine. She has a distant history of UTIs in the past. She denies any flank or abdominal pain. PFSH PFSH Home Medications cephalexin 500 mg capsule 500 mg PO Q12 #14 CAPSULES 02/02/23 [Rx Last Taken Unknown] Allergy/AdvReac Type Severity Reaction Status Date / Time clindamycin Allergy Severe Swelling Verified 02/02/23 08:33 Sulfa (Sulfonamide AdvReac Mild Other Verified 02/02/23 08:33 Antibiotics) Social History Smoking Status: Never smoker ROS ROS ED Constitutional Constitutional ED: Reports fever(s); Denies chills or sweats Eyes Eyes: Denies blurry vision or change in vision ENT ENT ED: Denies ear pain or sore throat Cardiovascular Cardiovascular: Denies chest pain, palpitations or racing heartbeat Respiratory/Chest Respiratory/Chest: Denies cough, dyspnea or sputum Gastrointestinal Gastrointestinal: Denies abdominal pain, constipation, diarrhea, nausea or vomiting Genitourinary Genitourinary ED: Reports dysuria and urinary frequency; Denies hematuria Musculoskeletal Musculoskeletal: Denies arthralgias, myalgias or neck pain Integumentary Denies abscess, Abrasions or rash Neurologic Neurologic: Denies headache(s), paresthesias or weakness Psychiatric Psychiatric: Denies anxiety, depression, suicidal ideation or suicidal thoughts Endocrine Endocrinology: Denies polydipsia or polyuria EXAM Physical Exam Const Vital Signs: 02/02/23 08:34 Temperature 99 F Temperature Source Temporal Pulse Rate 80 Respiratory Rate 16 Blood Pressure 164/76 H Blood Pressure Mean 105 Pulse Ox 97 Oxygen Delivery Method Room Air Positive well nourished General Appearance ED: NAD; Negative for pallor HEENT Reports moist mucous membranes Eyes PERRL and EOMs intact bilaterally Resp normal respiratory effort Cardio regular rate and regular rhythm Extremity normal to inspection and full ROM Neuro oriented x3 and CN's II-XII intact bilaterally Sensorium / Orientation: alert Motor Exam: strength 5/5 throughout Psych mental status grossly normal Skin General Skin Exam: Negative for jaundice or pallor MDM MDM MDM Narrative Medical decision making narrative: Patient presenting with UTI symptoms. Urinalysis shows occult blood, 500 leukocyte esterase, 50-100 white blood cells. There is no contamination. She does not have any flank pain or abdominal pain to suggest a kidney stone. She has no history of kidney stones. I will treat her for UTI with Keflex. I did offer lab work and the patient declines. Urine sent for culture and return precautions were discussed. Impression: 1. UTI Lab Data Labs: Laboratory Results - last 24 hr 02/02/23 08:50 Urine Color Straw Urine Clarity Sl. Cloudy Urine pH 6.5 Ur Specific [facility] 1.005 Urine Protein 15 H Urine Glucose (UA) Normal Urine Ketones Negative Urine Occult Blood 250 H Urine Nitrite Negative Urine Bilirubin Negative Urine Urobilinogen Normal Ur Leukocyte Esterase 500 H Urine RBC 0 SEEN Urine WBC 50-100 SEEN Ur Squamous Epith Cells 0 SEEN Urine Bacteria 0 SEEN Urine Mucus 0 SEEN Discharge Plan Triage Chief Complaint: Complaint ED Provider: Heladio Parada Dx/Rx/DC Orders Instructions: ED Cystitis Female Adult Prescriptions: New cephalexin 500 mg capsule 500 mg PO Q12 Qty: 14 0RF Primary Care Provider: Care Physician,No Primary Disposition Disposition: Home, Self Care Discharge Date/Time: 02/02/23 09:38 What to do if you have Problems For any increased pain, shortness of breath, bleeding, nausea or vomiting, chest pain, or any unexpected problems, contact your Primary Care Provider. Call [facility] ([phone]) or rep (more content not included)... Normal [facility] Ketones Test strip Ql (U)Ord ered By: Heladio Parada on 02-02-2023 Ketones Ql (U) Negative Negative [facility] Mucus LM Ql (Urine sed)Order ed By: Heladio Parada on 02-02-2023 Mucus Ql (Urine sed) 0 SEEN /hpf [facility] Nitrite Test strip Ql (U)Ord ered By: Heladio Parada on 02-02-2023 Nitrite Ql (U) Negative Negative [facility] Protein Test strip Ql (U)Ord ered By: Heladio Parada on 02-02-2023 Protein Ql (U) 15 mg/dl Negative [facility] Squamous epithelial cells de tection in urine sediment by light microscopyOrdered By: Heladio Parada on 02-02-2023 Epithelial cells.squamous LM Ql (Urine sed) 0 SEEN /hpf 5-10 [facility] Urinalysis, Completeon 02-02 WBC 50-100 SEEN Normal 0-5 [facility] Comment on above: Order Comment: CLEAN CATCH Performed By: #### L [id number] #### [facility] [address] [place], [address] BACTERIA 0 SEEN Normal None Seen [facility] Comment on above: Order Comment: CLEAN CATCH Performed By: #### L 400.0001 #### [facility] [address] [place], [address] EPI,SQUAMOUS 0 SEEN Normal 5-10 [facility] Comment on above: Order Comment: CLEAN CATCH Performed By: #### L [id number] #### [facility] [address] [place], [address] Mucus Ql (Urine sed) 0 SEEN Normal [facility] Comment on above: Order Comment: CLEAN CATCH Performed By: #### L [id number] #### [facility] [address] [place], [address] RBC 0 SEEN Normal 0-5 [facility] Comment on above: Order Comment: CLEAN CATCH Performed By: #### L [id number] #### [facility] [address] [place], [address] Urine blood detectionOrdered By: Heladio Parada on 02-02-2023 RBC Ql (U) 250 /ul Negative [facility] RBC Ql (U) 0 SEEN /hpf 0-5 [facility] Urine clarityOrdered By: Dorian Parada on 02-02-2023 Clarity (U) Sl. Cloudy Clear [facility] Urine color determinationOrd ered By: Heladio Parada on 02-02-2023 Color (U) Straw Yellow [facility] Urine glucose detectionOrder ed By: Heladio Parada on 02-02-2023 Glucose Ql (U) Normal mg/dl Normal [facility] Urine leukocyte esterase det ection by dipstickOrdered By: Heladio Parada on 02-02-2023 Leukocyte esterase Test strip Ql (U) 500 /ul Negative [facility] Urine pHOrdered By: Heladio flood on 02-02-2023 pH (U) 6.5 [pH] 5.0 - 8.0 [facility] Urine sediment bacteria coun t by microscopy (number/high power field)Ordered By: Heladio Parada on 02-02-2023 Bacteria LM.HPF (Urine sed) [#/Area] 0 /[HPF] None Seen [facility] Urine specific gravity measu rementOrdered By: Heladio Parada on 02-02-2023 Specific gravity (U) [Rel density] 1.005 1.002-1.030 [facility] Urobilinogen Auto test strip Ql (U)Ordered By: Heladio Parada on 02-02-2023 Urobilinogen Ql (U) Normal mg/dl Normal [facility] Vital Signs Date Time Vital Sign Value Performing Clinician Facility 03-02-2025 16:09-0400 Body temperature 97.6 [degF] Dr. Jennifer Alonso MD [facility] 03-02-2025 16:09-0400 Diastolic blood pressure 84 mm[Hg] Dr. Jennifer Alonso MD [facility] 03-02-2025 16:09-0400 Heart rate 82 /min Dr. Jennifer Alonso MD [facility] 03-02-2025 16:09-0400 Respiratory rate 17 /min Dr. Jennifer Alonso MD [facility] 03-02-2025 16:09-0400 SaO2% (BldA) [Mass fraction] 95 % Dr. Jennifer Alonso MD [facility] 03-02-2025 16:09-0400 Systolic blood pressure 150 mm[Hg] Dr. Jennifer Alonso MD [facility] 03-02-2025 11:47-0400 Body mass index (BMI) [Ratio] 28.4 kg/m2 Dr. Jennifer Alonso MD [facility] 03-02-2025 11:47-0400 Body weight 75.[address] Jennifer Alonso MD [facility] 03-02-2025 11:42-0400 Body height 162.[address] Jennifer Alonso MD [facility] 12-31-2024 09:53-0400 Body height 162.6 cm Ginny Neri MD Work Phone: [facility] 12-31-2024 09:53-0400 Body mass index (BMI) [Ratio] 26.93 kg/m2 Ginny Neri MD Work Phone: [facility] 12-31-2024 09:53-0400 Body temperature 97.11 [degF] Ginny Neri MD Work Phone: [facility] 12-31-2024 09:53-0400 Body weight 71.2 kg Ginny Neri MD Work Phone: [facility] 12-31-2024 09:53-0400 Diastolic blood pressure 70 mm[Hg] Ginny Neri MD Work Phone: [facility] 12-31-2024 09:53-0400 Heart rate 84 /min Ginny Neri MD Work Phone: [facility] 12-31-2024 09:53-0400 Systolic blood pressure 176 mm[Hg] Ginny Neri MD Work Phone: [facility] 11-26-2024 10:17-0400 Body height 162.6 cm Gely Perez MD Work Phone: [facility] 11-26-2024 10:17-0400 Body mass index (BMI) [Ratio] 26.98 kg/m2 Gely Perez MD Work Phone: [facility] 11-26-2024 10:17-0400 Body temperature 97 [degF] Gely Perez MD Work Phone: [facility] 11-26-2024 10:17-0400 Body weight 71.31 kg Gely Perez MD Work Phone: [facility] 11-26-2024 10:17-0400 Diastolic blood pressure 86 mm[Hg] Gely Perez MD Work Phone: [facility] 11-26-2024 10:170400 Heart rate 66 /min Gely Perez MD Work Phone: [facility] 11-26-2024 10:170400 Respiratory rate 16 /min Gely Perez MD Work Phone: [facility] 11-26-2024 10:170400 SaO2% (BldA) [Mass fraction] 97 % Gely Perez MD Work Phone: [facility] 11-26-2024 10:170400 Systolic blood pressure 150 mm[Hg] Gely Perez MD Work Phone: [facility] 09-24-2024 10:090400 Body height 162.6 cm Gely Perez MD Work Phone: [facility] 09-24-2024 10:09-0400 Body mass index (BMI) [Ratio] 27.12 kg/m2 Gely Perez MD Work Phone: [facility] 09-24-2024 10:090400 Body temperature 97.11 [degF] Gely Perez MD Work Phone: [facility] 09-24-2024 10:090400 Body weight 71.67 kg Gely Perez MD Work Phone: [facility] 09-24-2024 10:09-0400 Diastolic blood pressure 78 mm[Hg] Gely Perez MD Work Phone: [facility] 09-24-2024 10:09-0400 Heart rate 66 /min Gely Perez MD Work Phone: [facility] 09-24-2024 10:090400 Respiratory rate 18 /min Gely Perez MD Work Phone: [facility] 09-24-2024 10:09-0400 SaO2% (BldA) [Mass fraction] 97 % Gely Perez MD Work Phone: [facility] 09-24-2024 10: Systolic blood pressure 120 mm[Hg] Gely Perez MD Work Phone: [facility] 03-19-2024 10:040 Body height 162.6 cm Gely Perez MD Work Phone: [facility] 03-19-2024 10:25040 Body mass index (BMI) [Ratio] 26.47 kg/m2 Gely Perez MD Work Phone: [facility] 03-19-2024 10:25040 Body temperature 97.59 [degF] Gely Perez MD Work Phone: [facility] 03-19-2024 10:040 Body weight 69.94 kg Gely Perez MD Work Phone: [facility] 03-19-2024 10:25040 Diastolic blood pressure 88 mm[Hg] Gely Perez MD Work Phone: [facility] 03-19-2024 10:25-040 Heart rate 82 /min Gely Perez MD Work Phone: [facility] 03-19-2024 10:25040 Respiratory rate 18 /min Gely Perez MD Work Phone: [facility] 03-19-2024 10:25040 SaO2% (BldA) [Mass fraction] 98 % Gely Perez MD Work Phone: [facility] 03-19-2024 10:25040 Systolic blood pressure 130 mm[Hg] Gely Perez MD Work Phone: [facility] 12-17-2023 11:040 Body height 162.6 cm Gely Perez MD Work Phone: [facility] 12-17-2023 11:040 Body mass index (BMI) [Ratio] 26.28 kg/m2 Gely Perez MD Work Phone: [facility] 12-17-2023 11:04040 Body temperature 98.4 [degF] Gely Perez MD Work Phone: [facility] 12-17-2023 11:04-0400 Body weight 69.46 kg Gely Perez MD Work Phone: [facility] 12-17-2023 11:04-0400 Diastolic blood pressure 78 mm[Hg] Gely Perez MD Work Phone: [facility] 12-17-2023 11:04-0400 Heart rate 78 /min Gely Perez MD Work Phone: [facility] 12-17-2023 11:04-0400 Respiratory rate 16 /min Gely Perez MD Work Phone: [facility] 12-17-2023 11:04-0400 SaO2% (BldA) [Mass fraction] 98 % Gely Perez MD Work Phone: [facility] 12-17-2023 11:04-0400 Systolic blood pressure 128 mm[Hg] Gely Perez MD Work Phone: [facility] 11-30-2023 08:37-0400 Body temperature 97.5 [degF] Heather Ranjana-Eibara GATEMAN.ANALYTICAL MANAGER Work Phone: [facility] 11-30-2023 08:37-0400 Diastolic blood pressure 74 mm[Hg] Heather Ranjana-Eibara GATEMAN.ANALYTICAL MANAGER Work Phone: [facility] 11-30-2023 08:37-0400 Heart rate 77 /min Heather Ranjana-Eibara GATEMAN.ANALYTICAL MANAGER Work Phone: [facility] 11-30-2023 08:37-0400 Respiratory rate 17 /min Heather Ranjana-Eibara GATEMAN.ANALYTICAL MANAGER Work Phone: [facility] 11-30-2023 08:37-0400 SaO2% (BldA) [Mass fraction] 97 % Heather Ranjana-Eibara GATEMAN.ANALYTICAL MANAGER Work Phone: [facility] 11-30-2023 08:37-0400 Systolic blood pressure 168 mm[Hg] Heather Ranjana-Eibara GATEMAN.ANALYTICAL MANAGER Work Phone: [facility] 05-21-2023 10:05-0500 Body height 162.6 cm Gely Perez MD Work Phone: [facility] 05-21-2023 10:05-0500 Body temperature 97 [degF] Gely Perez MD Work Phone: [facility] 05-21-2023 10:05-0500 Body weight 68.67 kg Gely Perez MD Work Phone: [facility] 05-21-2023 10:05-0500 Diastolic blood pressure 74 mm[Hg] Gely Perez MD Work Phone: [facility] 05-21-2023 10:05-0500 Heart rate 70 /min Gely Perez MD Work Phone: [facility] 05-21-2023 10:05-0500 Respiratory rate 18 /min Gely Perez MD Work Phone: [facility] 05-21-2023 10:05-0500 SaO2% (BldA) [Mass fraction] 97 % Gely Perez MD Work Phone: [facility] 05-21-2023 10:05-0500 Systolic blood pressure 138 mm[Hg] Gely Perez MD Work Phone: [facility] 02-02-2023 08:34-0400 Body height 162.56 cm [facility] 02-02-2023 08:34-0400 Body mass index (BMI) [Ratio] 26 kg/m2 [facility] 02-02-2023 08:34-0400 Body temperature 99 [degF] [facility] [facility] 02-02-2023 08:34-0400 Body weight 68.9 kg [facility] 02-02-2023 08:34-0400 Diastolic blood pressure 76 mm[Hg] [facility] 02-02-2023 08:34-0400 Heart rate 80 /min [facility] 02-02-2023 08:34-0400 Respiratory rate 16 /min [facility] 02-02-2023 08:34-0400 SaO2% (BldA) [Mass fraction] 97 % [facility] 02-02-2023 08:34-0400 Systolic blood pressure 164 mm[Hg] [facility] Encounters Encounter Date Encounter Type Care Provider Facility Start: 03-02-2025 Evaluation and manag ement of inpatient Dr. Evelyn Zepeda MD -Progressive Care Unit Work Phone: Start: 03-02-[address] Jennifer giraldo MD -Progressive Care Unit Start: 01-12-2025 ambulatory GELY PEREZ Facility:[facility] Start: 01-12-2025 End: 01-12-2025 Subsequent hospital visit by physician Us Luis Fernando Sheth Work Phone: Radiology Comment on above: PMR (polymyalgia rhe umatica) (HCC) [M35.3] Start: 12-31-2024 End: 12-31-2024 ambulatory [facility] Facility:[facility] Start: 12-31-2024 End: 12-31-2024 Patient encounter procedure Ginny Neri MD Work Phone: Rheumatology Comment on above: PMR (polymyalgia rhe umatica) (HCC) (Primary Dx); Osteoporosis without current pathological fracture, unspecified osteoporosis type Start: 12-31-2024 End: 12-31-2024 [facility] Facility:[facility] Start: 12-01-2024 End: 12-01-2024 Telephone encounter Gely Perez MD Work Phone: [facility] Comment on above: Referral Information Start: 11-26-2024 End: 11-26-2024 Office outpatient visit 15 minutes Gely Perez MD Work Phone: [facility] Comment on above: PMR (polymyalgia rhe umatica) (HCC) (Primary Dx); Adverse effect of glucocorticoids and synthetic analogues, initial encounter Start: 11-26-2024 End: 11-26-2024 ambulatory GELY PEREZ Facility:[id number] Start: 11-25-2024 End: 11-25-2024 Refill Gely Perez MD Work Phone: [facility] Comment on above: Refill Request Start: 11-24-2024 End: 11-24-2024 Follow-up encounter Pepe Silva [facility] Start: 11-19-2024 End: 11-19-2024 ambulatory GELY PEREZ Facility:[id number] Start: 09-29-2024 End: 09-30-2024 Follow-up encounter Gely Perez MD Work Phone: [facility] Start: 09-26-2024 End: 09-26-2024 ambulatory GELY PEREZ Facility:[id number] Start: 09-26-2024 Encounter for javier l adult medical examination without abnormal findings [facility] Start: 09-24-2024 End: 09-24-2024 Patient encounter procedure Gely Perez MD Work Phone: [facility] Comment on above: Encounter for silvia schmidt regarding advance directives (Primary Dx); Screening for depression; Encounter for screening examination for other mental health and behavioral disorders; Vitamin D deficiency; Lipid screening; Screening for deficiency anemia; Wellness examination; Hypertension, essential; PMR (polymyalgia rheumatica) (HCC); Thyromegaly; Bilateral leg edema; Medicare annual wellness visit, subsequent Start: 09-24-2024 End: 09-24-2024 Patient encounter status Gely Perez MD Work Phone: [facility] Start: 09-24-2024 End: 09-24-2024 ambulatory GELY PEREZ Facility:[id number] Start: 03-19-2024 End: 03-19-2024 Office outpatient visit 15 minutes Gely Perez MD Work Phone: [facility] Comment on above: PMR (polymyalgia rhe umatica) (HCC) (Primary Dx); Hypertension, essential Start: 03-19-2024 End: 03-19-2024 ambulatory GELY PEREZ Facility:[id number] Start: 12-24-2023 Telephone encounter Dina soto DPM Work Phone: [facility] Comment on above: Appointment Start: 12-20-2023 E-mail encounter gabrielle olivas caregiver Gely Perez MD Work Phone: [facility] Start: 12-20-2023 Patient encounter procedure Gely Perez MD Work Phone: [facility] Comment on above: Podiatry Referral Start: 12-20-2023 Telephone encounter Gely Perez MD Work Phone: [facility] Comment on above: Podiatry referral fa xed to Dr Aggarwal Start: 12-17-2023 End: 12-17-2023 Office outpatient visit 15 minutes Gely Perez MD Work Phone: [facility] Comment on above: PMR (polymyalgia rhe umatica) (HCC) (Primary Dx); Ingrown nail; Vitamin D deficiency Start: 12-17-2023 End: 12-17-2023 ambulatory GELY PEREZ Facility:[id number] Start: 11-30-2023 End: 11-30-2023 Patient encounter procedure Heather ChilelStephanieJaden GATEMAN.ANALYTICAL MANAGER Work Phone: [facility] Comment on above: Acute cystitis with hematuria (Primary Dx) Start: 09-13-2023 ambulatory [facility] Provider [facility] Comment on above: results Start: 09-13-2023 E-mail encounter gabrielle olivas caregiver [facility] Provider [facility] Start: 09-13-2023 Telephone encounter Gely Perez MD Work Phone: [facility] Comment on above: Results Start: 05-21-2023 End: 05-21-2023 Office outpatient visit 15 minutes Gely Perez MD Work Phone: [facility] Comment on above: PMR (polymyalgia rhe umatica) (HCC) (Primary Dx); Hypertension, essential; Tremor Start: 03-13-2023 Telephone encounter Gely Perez MD Work Phone: [facility] [place] Comment on above: Referral Information Start: 02-02-2023 End: 02-02-2023 Emergency department patient visit Heladio Tal Facility:[facility] Start: 02-02-2023 End: 02-02-2023 Emergency department patient visit [facility] Work Phone: Procedures Date Procedure Procedure Detail Performing Clinician Start: 03-02-2025 CT angiography of he ad and neck Dr. Jennifer Alonso MD Start: 03-02-2025 CT of head without contrast Dr. Jennifer Alonso MD Start: 01-12-2025 Duplex scan extracra nial art compl bi study Roula Purdy MD Work Phone: Start: 09-24-2024 Adult depression scr eening assessment Gely Perez MD Work Phone: Start: 11-30-2023 Urnls dip stick/tabl et rgnt auto w/o microscopy Heather Thorne APRN.ANALYTICAL MANAGER Work Phone: Start: 05-21-2023 INFLUENZA VACCINE, P RSV FREE, AGE 65+ YR, HIGH DOSE, QUADRIVALENT (FLUZONE HIGH-DOSE) Gely Perez MD Work Phone: Plan of Treatment Date Care Activity Detail Author Start: 01-01-2028 Diabetes Screening Diabetes Screenin g [facility] Start: 09-27-2027 Diabetes Screening Diabetes Screenin g [facility] Start: 09-12-2026 Diabetes Screening Diabetes Screenin g [facility] Start: 09-24-2025 Anxiety Screening Anxiety Screening [facility] Start: 09-24-2025 Depression Screening Depression Scre ening [facility] Start: 03-23-2025 End: 03-23-2025 Patient encounter procedure 03/23/2025 10:10 AM EDT [facility] [address] [place] [phone] Gely Perez MD [address] [place], [place] [address] 6-month follow-up [facility] Comment on above: 6-month follow-up Start: 03-19-2025 Annual PCP Team Metallographic Technician destini Disease Visit Annual PCP Team Chronic Disease Visit [facility] Start: 03-16-2025 Influenza vaccination Influenz a Vaccine (Season Ended) [facility] Start: 03-02-2025 MRI of brain without contrast Brain without Contrast [facility] Start: 03-02-2025 Verification routine [facility] Start: 03-02-2025 Admission procedure [facility] Start: 03-02-2025 Hospital admission, emergency, from emergency room, medical nature [facility] Start: 02-17-2025 End: 02-17-2025 Patient encounter procedure 02/17/2025 12:30 PM EDT Office Visit Neurology [address] [place], [place] [address] Evelyn Chen PA-C [address] [place], [place] [id number] head pain Neurology Comment on above: head pain Start: 01-12-2025 End: 01-12-2025 Patient encounter procedure 01/12/2025 8:00 AM EDT Appointment Radiology [address] [place] [address] [facility] Radiology Comment on above: [facility] Start: 12-16-2024 Annual PCP Team Metallographic Technician destini Disease Visit Annual PCP Team Chronic Disease Visit [facility] Start: 12-16-2024 BP Controlled (<130/80) BP Controlle d (<130/80) [facility] Start: 11-26-2024 End: 11-26-2024 Patient encounter procedure 11/26/2024 10:10 AM EDT Office Visit [facility] [address] [place] [phone] Gely Perez MD [address] [place] [address] back on prednisone and having side effects, unmanageable [facility] Comment on above: back on prednisone a nd having side effects, unmanageable Start: 10-14-2024 End: 01-13-2025 Erythrocyte sedimentation rate SEDIMENTATION RATE, WESTERGREN Lab Routine PMR (polymyalgia rheumatica) ([facility]) Expected: 10/14/2024, Expires: 01/13/2025 [facility] Work Phone: Comment on above: Expected: 10/14/2024 , Expires: 01/13/2025 Start: 09-24-2024 End: 12-24-2024 25-hydroxyvitamin D3 [Mass/volume] in Serum or Plasma VITAMIN D 25 HYDROXY Lab Routine Vitamin D deficiency Expected: 09/24/2024, Expires: 12/24/2024 [facility] Comment on above: Expected: 09/24/2024 , Expires: 12/24/2024 Start: 09-24-2024 End: 12-24-2024 CBC W Auto Differential panel - Blood COMPLETE BLOOD COUNT AND DIFFERENTIAL Lab Routine Screening for deficiency anemia Expected: 09/24/2024, Expires: 12/24/2024 [facility] Work Phone: Comment on above: Expected: 09/24/2024 , Expires: 12/24/2024 Start: 09-24-2024 End: 12-24-2024 Comprehensive metabolic 2000 panel - Serum or Plasma COMPREHENSIVE METABOLIC PANEL Lab Routine Wellness examination Hypertension, essential Expected: 09/24/2024, Expires: 12/24/2024 [facility] Comment on above: Expected: 09/24/2024 , Expires: 12/24/2024 Start: 09-24-2024 End: 12-24-2024 Erythrocyte sedimentation rate SEDIMENTATION RATE, WESTERGREN Lab Routine PMR (polymyalgia rheumatica) ([facility]) Expected: 09/24/2024, Expires: 12/24/2024 [facility] Comment on above: Expected: 09/24/2024 , Expires: 12/24/2024 Start: 09-24-2024 End: 12-24-2024 Lipid 1996 panel - Serum or Plasma LIPID PANEL BASIC Lab Routine Lipid screening Expected: 09/24/2024, Expires: 12/24/2024 [facility] Comment on above: Expected: 09/24/2024 , Expires: 12/24/2024 Start: 09-24-2024 End: 12-24-2024 Thyrotropin [Units/volume] in Serum or Plasma THYROID STIMULATING HORMONE Lab Routine Thyromegaly Expected: 09/24/2024, Expires: 12/24/2024 [facility] Comment on above: Expected: 09/24/2024 , Expires: 12/24/2024 Start: 09-24-2024 End: 09-24-2024 Patient encounter procedure 09/24/2024 10:00 AM EDT Office Visit [facility] [address] [place] [phone] Gely Perez MD [address] [place], [place] [id number] Annual Wellness [facility] Comment on above: Annual Wellness Start: 09-10-2024 Annual PCP Team Metallographic Technician destini Disease Visit Annual PCP Team Chronic Disease Visit [facility] Start: 05-21-2024 Annual PCP Team Metallographic Technician destini Disease Visit Annual PCP Team Chronic Disease Visit [facility] Start: 03-19-2024 End: 03-19-2024 Patient encounter procedure 03/19/2024 10:30 AM EDT Office Visit [facility] [address] [place] [phone] Gely Perez MD [address] [place], [place] [address] 3 Month Follow Up [facility] Comment on above: 3 Month Follow Up Start: 03-16-2024 Covid-19 Vaccine () Covid-19 Vaccine () [facility] Start: 03-16-2024 Covid-19 Vaccine ( season) Covid-19 Vaccine ( season) [facility] Start: 03-16-2024 Influenza vaccination Influenza Vacc ine (#1) [facility] Start: 03-06-2024 ANNUAL PCP TEAM DEPUTY SHERIFF K9 HANDLER DESTINI DISEASE VISIT ANNUAL PCP TEAM CHRONIC DISEASE VISIT [facility] Start: 12-17-2023 End: 12-17-2023 Patient encounter procedure 12/17/2023 11:10 AM EDT Office Visit [facility] [address] [place] [phone] Gely Perez MD [address] [place], [place] [id number] 3 Month Follow Up [facility] Comment on above: 3 Month Follow Up Start: 07-16-2023 Behavioral Health Screening Behavioral Health Screening [facility] Start: 03-16-2023 Covid-19 Vaccine ( season) Covid-19 Vaccine () [facility] Start: 03-16-2023 Influenza vaccination INFLUENZA (#1) [facility] Start: 07-16-2022 ADVANCE DIRECTIVE DISCUSSION ADVANCE DIRECTIVE DISCUSSION [facility] Start: 07-16-2022 DEPRESSION ASSESSMENT DEPRESSION ASS ESSMENT [facility] Start: 2018 RSV Vaccine (1 - 1-d ose 75+ series) RSV Vaccine (1 - 1-dose 75+ series) [facility] Start: 2008 BONE DENSITY BONE DENSITY [facility] Start: 2008 Bone Density Screening Bone Density Screening [facility] Start: 2008 Pneumococcal Vaccine : 65+ (1 - PCV) Pneumococcal Vaccine: 65+ (1 - PCV) [facility] Start: 2008 Pneumococcal Vaccine : 65+ (1 of 1 - PCV) Pneumococcal Vaccine: 65+ (1 of 1 - PCV) [facility] Start: 2008 PNEUMOCOCCAL: 65+ (1 - PCV) PNEUMOCOCCAL: 65+ (1 - PCV) [facility] Start: 2008 Screening for osteoporosis Bone Density Screening [facility] Start: 2003 RSV Vaccine (1 - 1-d ose 60+ series) RSV Vaccine (1 - 1-dose 60+ series) [facility] Start: 1993 Pneumococcal Vaccine : 50+ (1 of 1 - PCV) Pneumococcal Vaccine: 50+ (1 of 1 - PCV) [facility] Start: 1993 SHINGRIX VACCINE (1 of 2) SHINGRIX VACCINE (1 of 2) [facility] Start: 1988 DIABETES SCREEN DIABETES SCREEN [facility] Start: 1988 Diabetes Screening Diabetes Screenin g [facility] Start: 1962 Urine microalbumin profile [facility] Start: 1961 Anxiety Screening Anxiety Screening [facility] Start: 1961 BP CONTROLLED (<130/80) BP CONTROLLE D (<130/80) [facility] Start: 1961 Depression Screening Depression Scre ening [facility] Start: 1943 COVID-19 VACCINE (#1) COVID-19 VACCI NE (#1) [facility] Bacteria identified in Urine by Culture URINE CULTURE Microbiology Routine Acute cystitis with hematuria 11/30/2023 9:57 AM EDT [facility] Work Phone: Bilirubin measuremen t, urine [facility] End: 01-30-2026 DXA Skeletal system.axial Views for bone density DXA-AXIAL SKELETON Radiology Routine PMR (polymyalgia rheumatica) (HCC) Osteoporosis without current pathological fracture, unspecified osteoporosis type 1 Occurrences starting 12/31/2024 until 01/30/2026 [facility] Comment on above: 1 Occurrences starti ng 12/31/2024 until 01/30/2026 Hemoglobin [Presence ] in Urine [facility] Measurement of keton es in urine using dipstick [facility] Microscopic urinalysis [facility] Organism count, microscopic method [facility] Patient Education ED Cystitis Fe male Adult [facility] Work Phone: pH of Urine [facility] Specific gravity of Urine [facility] Urine dipstick for glucose [facility] Urine dipstick for leukocyte esterase [facility] Urine dipstick for nitrite [facility] Urine dipstick for protein [facility] Urine examination [facility] Urine microscopy: epithelial cells [facility] Urine microscopy: re d cells [facility] Urobilinogen [Presen ce] in Urine [facility] End: 01-30-2026 US.doppler Head US TEMPORAL ARTERY BILATERAL Radiology Routine PMR (polymyalgia rheumatica) (HCC) Osteoporosis without current pathological fracture, unspecified osteoporosis type 1 Occurrences starting 12/31/2024 until 01/30/2026 [facility] Work Phone: Comment on above: 1 Occurrences starti ng 12/31/2024 until 01/30/2026 White blood [facility] Immunizations Immunization Date Immunization Notes Care Provider Fa jah 05-21-2023 influenza (HD-IIV4) vaccine, age 65+ yr, high dose, quadrivalent, PF (FLUZONE HIGH-DOSE) Gely Perez MD Work Phone: [facility] 05-21-2023 influenza virus vacc ine, unspecified formulation Gely Perez MD Work Phone: [facility] Payers Date Payer Category Payer Medicare [employer] MEDICARE [employer]NA GOLD PLUS [id number] 2023-Present [id number] [place] [id number] HMO [id number] 2023 Medicare (Managed Care) [id number] 2023 Private Health Insurance [id number] 2023 Medicare [id number] 2023 Self-pay Unknown [id number] Social History Date Type Detail Facility Start: 02-02-2023 Tobacco smoking stat us VTIS Unknown if ever smoked [facility] Start: 1945 Sex Assigned At Female W [facility] Start: 03-06-2023 End: 03-02-2025 Tobacco smoking status NHIS Never smoked tobacco [facility] Start: 03-06-2023 End: 11-30-2023 Tobacco use and exposure Smokeless tobacco non-user [facility] Start: 03-06-2023 End: 12-31-2024 Alcohol intake Ex-drinker (finding) [facility] Start: 03-06-2023 End: 09-24-2024 History of Social function [facility] Start: 03-06-2023 End: 09-24-2024 Tobacco use panel [facility] Start: 1945 Sex Assigned At Not on file [facility] Has the [employer] or [employer] threatened to shut off services in your home in past 12Mo No [facility] Are you now , , , , never or living with a partner? [facility] How often to you hav e a drink containing alcohol? Never [facility] How many standard drinks containing alcohol do you have on a typical day? Patient does not drink [facility] Do you feel stress - tense, restless, nervous, or anxious, or unable to sleep at night because your mind is troubled all the time - these days [OSQ] Not at all [facility] (I/We) worried wheth er (my/our) food would run out before (I/we) got money to buy more. Never true [facility] NEGATED: Highlighted rowStart: NINF History of tobacco use Passive smoker [facility] Functional Status Date Assessment Result Facility 09-24-2024 Total score [AUDIT-C] 0 09/25/19 25 10:08 AM Chirag Deng LPN [facility] 09-24-2024 Humiliation, Afraid, Rape, and Kick questionnaire [HARK] [facility] Mental Status Date Assessment Result Facility 03-02-2025 Cognitive function Voice/Name [facility] Work Phone: Clinical Notes 03-13-2023 to 03-02-2025 Note Date & Type Note Facility 03-02-2025 Discharge summary [facility] 03-02-2025 History and physi anderson note [facility] 03-02-2025 Radiology Diagnostic study note [facility] Imaging Services [address] [place], [place] [address] CTA Head AND Neck W/ Contrast MR#: [id number] Acct: [id number] Name: BOBO SORENSEN Rep #: [id number] : 1945 F 79 From: Kit Bishop MD PCP: Dr. Gely Perez MD Status: REG ER Study:CTA Head AND Neck W/ Contrast Date of E xam: 03/02/25 Exam# [id number] Ordering Dr: Ac Alonso ica PROCEDURE: CTA HEAD AND NECK W/ CONTRAST 03/02/2025 REASON FOR EXAM: OFF BALANCE, SUDDEN ONSET THIS AM TECHNIQUE: CTA HEAD AND NECK W/ CONTRAST Multiplanar Sagittal and Coronal images were obtained. 3D post processing was performed CONTRAST: Isovue 370 VOLUME: 100 mL One or more dose reduction techniques were used (e.g., Automated exposure control, adjustment of the mA and/or kV according to patient size, use of iterative reconstruction technique). RADIATION DOSE SUMMARY: CTDlvol: 13.6 mGy DLP: 1328.19 mGycm COMPARISON: Prior CT scan of the head done earlier in the day. FINDINGS: Aortic Arch: Normal size and branching pattern. Mild atherosclerotic plaque. Brachiocephalic and Subclavians: Unremarkable RIGHT Carotid: Right CCA: Unremarkable. Right ICA: Unremarkable. Right ECA: Unremarkable. LEFT Carotid: Left CCA: Unremarkable. Left ICA: Unremarkable. Left ECA: Unremarkable. Vertebrals: Codominant. Arise from the subclavians. Both vertebrals form the basilar. RIGHT Vertebral: Unremarkable. LEFT Vertebral: Unremarkable. Anatomy: [place] anatomy is normal. Aneurysm or avm: No intracranial aneurysms or large vascular malformations are identified. Anterior cerebral arteries: Unremarkable: Middle cerebral arteries: Unremarkable. Basilar artery: Unremarkable. Posterior cerebral arteries: Unremarkable. Other major branches of the posterior circulation: Major venous structures: Unremarkable. Other findings: Sphenoid sinusitis. Partial opacification of the ethmoid sinuses. Mucosal polyp or retention cyst at the bases of both maxillary sinus. CT/CTA Head AND Neck W/ Contrast IMPRESSION: No vascular abnormality is seen. Sinusitis. Reading Location: [id number] CC: Dr. Jennifer Alonso MD; Dr. Gely Perez MD ~ Yarn Wrapper: Signed [facility] 03-02-2025 Radiology Diagnostic study note [facility] Imaging Services [address] [place], [place] [address] Brain/Head without Contrast MR#: [id number] Acct: [id number] Name: BOBO SORENSEN Rep #: [id number] : 1945 F 79 From: Jamaica Campos MD PCP: Dr. Gely Perez MD Status: REG ER Study:Brain/Head without Contrast Date of Exa m: 03/02/25 Exam# [id number] Ordering Dr: Ac Alonso MD PROCEDURE: BRAIN/HEAD WITHOUT CONTRAST 03/02/2025 REASON FOR EXAM: OFF BALANCE, RULE OUT POSTERIOR MASS/STROKE TECHNIQUE: BRAIN/HEAD WITHOUT CONTRAST Coronal and Sagittal reconstruction series were provided. One or more dose reduction techniques were used (e.g., Automated exposure control, adjustment of the mA and/or kV according to patient size, use of iterative reconstruction technique. RADIATION DOSE SUMMARY: CTDlvol: 52 mGy DLP: 1328 mGycm COMPARISON: None FINDINGS: Brain: There is no evidence of hemorrhage, acute ischemia or mass. No extra-axial fluid collection, midline shift or mass effect. Low-density in the periventricular white matter is seen along with patchy foci of low-density in the deep white matter of the frontal and parietal lobes. CSF Spaces: Mild generalized cerebral atrophy Sinuses/Mastoids: Clear. Circumferential mucosal thickening possibly mucous retention cysts in the sphenoid sinuses, maxillary sinuses. Opacification of several left ethmoid air cells in the left frontal sinuses. Bones: No fracture. Bilateral lens implants. CT/Brain/Head without Contrast IMPRESSION: 1. No evidence of intracranial hemorrhage or acute ischemia. 2. Changes of chronic microvascular ischemia and volume loss. Reading Location: [id number] CC: Dr. Jennifer Alonso MD; Dr. Gely Perez MD ~ Yarn Wrapper: Signed [facility] 03-02-2025 Discharge summary Note Date/Time March 02, 2025 4:20pm [facility] Medical Records Department [address] [place] [address] Emergency Department Summary 03/02/25 MR#: [id number] Acct: [id number] Name: BOBO SORENSEN Rep #:[id number] : 1945 79 From: Jennifer Alonso MD PCP: Dr. Gely Perez MD Status:ADM ESA Location: [address] History of Present Illness Chief Complaint: Dizziness Narrative Narrative: Patient is a 79-year-old female presenting emergency department for feeling unsteady on her feet. Patient has a past medical history as below, states she does have a history of vertigo this was over 14 years ago. States that does notfeel similar. She states last night she went to bed around 9 PM and had no symptoms. She states this morning she woke up around 7 AM and felt very unsteady on her feet when walking. She denies any dizziness or lightheadedness. Denies any headache or vision changes. Denies any speech difficulty. Denies any weakness or numbness in her extremities. Denies chest pain, shortness of breath or abdominal pain. [facility] Medical History HTN (hypertension) PMR (polymyalgia rheumatica) Retina disorder Cataracts, bilateral Migraines Home Medications ?Medication ?Instructions ?Recorded ?Last Taken ?Type diltiazem HCl 180 mg capsule,24 180 mg PO QHS 03/02/25 Unknown History hr,extended release (Tiadylt ER) prednisone 1 mg tablet 1 mg PO DAILY 03/02/25 Unkno wn History Allergy/AdvReac Type Severity Reaction Status Date / Time clindamycin Allergy Severe Swelling Verified 03/02/25 11:41 Beta-Blockers AdvReac Intermediate Chest Verified 03/02/25 11:41 (Beta-Adrenergic Bloc tightness Sulfa (Sulfonamide AdvReac Mild Other Verified 03/02/25 11:41 Antibiotics) Surgical History History of cataract surgery Social History Smoking Status: Never smoker ROS ROS ED ROS Narrative see HPI EXAM Physical Exam Narrative Exam Narrative: Vital signs: Reviewed General: Alert and orientedx3. No acute distress HEENT: Head is normocephalic and atraumatic, sinuses nontender, pupils equal round and reactive. Nares are patent. Oropharynx and throat exams normal. Neck: Supple without lymphadenopathy nontender Cardiovascular: Regular rate and rhythm, no murmurs. No rubs or gallops. Normal S1 and S2 Respiratory: Clear to auscultation bilaterally. No wheezes, rales, rhonchi Abdominal: Soft and nontender. Normal bowel sounds. No guarding or rebound. Nonsurgical abdomen Extremities: No tenderness. No bruising. Normal range of motion. Normal sensation. Skin: No rash or redness. Neurological: Cranial nerves II through XII are grossly intact. Normal strengthand sensation. Normal cerebellar function with finger to nose and bustos testing.Unable to ambulate alone. The rest of the physical exam is unremarkable Const Vital Signs: 03/02/25 11:42 03/02/25 13:40 03/02/25 15:00 Temperature 97.6 F L Temperature Source Oral Pulse Rate 72 89 82 Respiratory Rate 18 17 Blood Pressure 188/64 H 181/77 H 150/84 H Blood Pressure Mean 105 111 106 Pulse Ox 94 96 95 Oxygen Delivery Method Room Air Room Air Room Air MDM MDM MDM Narrative Medical decision making narrative: Patient is an 79-year-old female presenting to emergency department for unsteadygait. Patient was seen and examined. Vitals are stable. Patient resting bed comfortably no acute distress. Last known well was 9 PM last night. Woke up at 7 AM with the symptoms. She isreporting no dizziness or lightheadedness. CT CTA ordered. Initial concern given her inability to ambulate was for a posterior stroke. Labs were obtained to evaluate for any anemia or electrolyte imbalance that could cause the feelingof unsteadiness. CBC with no leukocytosis. Hemoglobin within normal limits. BMP with no significant normalities. CT shows no evidence of intracranial hemorrhage or acute ischemia. CTA shows no vascular abnormality. Patient and family updated on the lab and imaging findings. Patient shared decision making to determine disposition. I explained that the CT does not completely rule out a posterior stroke and she needs an MRI for this. After long discussion she would like to be admitted for further workup including MRI. Patient mated to hospitalist Clinical impression: Gait abnormality Unsteady HTN History & Record Review Discussion w/independent historian: Patient and Family Lab Data Attestation: I reviewed the patient's lab results. Labs: Laboratory Results - last 24 hr 03/02/25 12:06 WBC 6.4 RBC 4.27 Hgb 13.8 Hct 41.1 MCV 96.3 MCH 32.3 H MCHC 33.6 RDW Std Deviation 45.5 H RDW Coeff of Katelyn 12.7 Plt Count 281 MPV 10.4 Immature Gran % (Auto) 0.000 Neut % (Auto) 50.0 Lymph % (Auto) 34.1 [place] % (Auto) 10.4 H Eos % (Auto) 4.7 Baso % (Auto) 0.8 Absolute Neuts (auto) 3.2 Absolute Lymphs (auto) 2.17 Nucleated RBC % 0 Sodium 142 Potassium 3.5 Chloride 106 Carbon Dioxide 20.5 L Anion Gap 15 BUN 22 H Creatinine 0.64 L Est GFR (MDRD) Non-Af 89 BUN/Creatinine Ratio 34.3 H Glucose 94 Calcium 9.7 Radiography Diagnostic Testing: Clinical Impression(s) from Imaging Studies Brain CT 03/02/25 13:02 IMPRESSION: 1. No evidence of intracranial hemorrhage or acute ischemia. 2. Changes of chronic microvascular ischemia and volume loss. Reading Location: [facility] Head/Neck CTA 03/02/25 13:02 IMPRESSION: No vascular abnormality is seen. Sinusitis. Reading Location: [id number] Discharge Plan Triage Chief Complaint: Dizziness ED Provider: Jennifer Alonso Dx/Rx/DC Orders Primary Care Provider: Gely Perez NIHSS NIHSS 1a. Level of Consciousness: 0 - Alert; keenly responsive 1b. LOC Questions: 0 - Answers BOTH questions correctly 1c. LOC Commands: 0 - Performs BOTH tasks correctly 2. Best Gaze: 0 - Normal 3. Visual: 0 - No visual loss 4. Facial Palsy: 0 - Normal symmetrical movements 5a. Left Arm: 0 - No drift; arm holds 90 (or 45) degrees for full 10 seconds 5b. Right Arm: 0 - No drift; arm holds 90 (or 45) degrees for full 10 seconds 6a. Left Le - No drift; leg holds 30-degree position for full 5 seconds 6b. Right Le - No drift; leg holds 30-degree position for full 5 seconds 7. Limb Ataxia: 0 - Absent 8. Sensory: 0 - Normal; no sensory loss 9. Best Language: 0 - No aphasia; normal 10. Dysarthria: 0 - Normal 11. Extinction and Inattention: 0 - No abnormality Total: 0 What to do if you have Problems For any increased pain, shortness of breath, bleeding, nausea or vomiting, chestpain, or any unexpected problems, contact your Primary Care Provider. Call [facility] ([phone]) or report to the closest Emergency Room. Call 911 if necessary. 03/02/25 1620 <Electronically signed by Jennifer Alonso MD> Cosigner Signature (if applicable): CC: Dr. Gely Perez MD ~ Signed [facility] Work Phone: [phone] History of Present illness Narrative* Ginny Neri MD - 12/31/2024 10:00 AM EDT Bobo Sorensen is a 79 year old female. Consultation was requested by Dr. Perez for an opinion regarding headache; my final assessment and recommendations will be communicated back to the requesting physician by way of shared medical record, or by letter via fax or US mail. Evaluation Date: 12/26/2024 Chief Complaint: Headache HPI: History was obtained from the patient and from outside records. Bobo Sorensen dates her history back to 2020. She was diagnosed with PMR in 2020 in [place] by Rheumatology. Managed with prednisone taper, started with 10 and currently on 2 mg. Since she moved to [place] 2 years ago, her PCP has been managing PMR. Tried to come off prednisone completely in May 2024. In September 2024, she started having mobility issue not joint pain. Checked ESR and was elevated. Since September she has been back on Prednisone. While she was off the prednisone, she noticed she has a sharp pain on the R temporal area. She denied any jaw claudication, vision loss or double vision. She follows with her sound effects person, last visit was a month ago, and exam was normal. She said she has a history of silent migraine (only gets visual aura) and has increase in frequency since September. After she is back on steroid her temporal pain is diminished. Noticed steroid affect her where she gets brain fog and nowadays is affecting her temper. PMHx: - HTN - Osteoporosis - PMR Ref Range & Units 3 mo ago (09/26/24) 9 mo ago (03/19/24) 1 yr ago (12/17/23) 1 yr ago (09/12/23) 1 yr ago (05/21/23) 1 yr ago (03/06/23) Sed Rate, Westergren 0 - 30 mm/hr 39 High ROS PAST SURGICAL HISTORY: PAST SURGICAL HISTORY Procedure Laterality Date TOTAL ABDOM HYSTERECTOMY N/A 1983 CURRENT MEDICATIONS: Current Outpatient Medications Medication Sig predniSONE (DELTASONE) 1 mg tablet TAKE 2 TABLETS BY MOUTH ONCE DAILY. dilTIAZem CR (TIADYLT ER) 180 mg 24 hr capsule Take 1 capsule by mouth once daily. cholecalciferol (VITAMIN D-3) 50 mcg (2,000 unit) tablet Take 2,000 Units by mouth once daily. (Patient not taking: Reported on 11/26/2024) Mometasone 0.1 % solution Apply to affected area once daily. No current facility-administered medications for this visit. ALLERGIES: Clindamycin and Sulfa (Sulfonamide Antibiotics) SOCIAL HISTORY: PHYSICAL EXAMINATION BP 176/70 Pulse 84 Temp 36.2 C (97.1 F) (Temporal) Ht 162.6 cm (5' 4.02) Wt 71.2 kg (156 lb 15.5 oz) LMP (LMP Unknown) BMI 26.93 kg/m GENERAL APPEARANCE: well SKIN: normal without rashes or lesions HEAD: normal; temporal arteries with normal pulsation without nodularity or tenderness LUNGS: on RA. No acute distress HEART: RRR, no gallops, rubs or murmurs ABDOMEN: soft, non-tender, normal BS MUSCULOSKELETAL: OA nodules VASCULAR EXAM Carotid: normal and equal bilaterally Brachial: normal and equal bilaterally Radial: normal and equal bilaterally Dorsalis pedis: normal and equal bilaterally Bruit over large vessels: negative NEURO: normal strength LE proximally and distally ASSESSMENT: Bobo Sorensen dates her history back to 2020. She was diagnosed with PMR in 2020 in [place] by Rheumatology. Managed with prednisone taper, started with 10 and currently on 2 mg. Since she moved to [place] 2 years ago, her PCP has been managing PMR. Tried to come off prednisone completely in May 2024. In September 2024, she started having mobility issue not joint pain. Checked ESR and was elevated. Since September she has been back on Prednisone. New onset right sided temporal pain when she went off prednisone in the fall. Restarted 2 mg again by PCP because ESR went up to 39. Pain improved but still there - sometimes its positional when pending forward. She also reports more frequent silent migraine with aura and on the top of her head onespot of pain No claudication, visual loss, double vision, or clear PMR symptoms Repeat ESR of 24 after starting 2 mg of prednisone which causing mood changes and brain fog I discussed with her that overall I have low suspicion that she has GCA but since her APRs were elevated we will obtain TAUS and if its negative but APRs continue to be elevated we will consider TAB and LVV images such as MRA or CTA For now we will reduce prednisone to 1 mg Consult neurology to address migraine We will update her DXA scan and vit D level PT for thigh muscles Ginny Neri MD Rheumatology staff December 31, 2024 [facility] NoteHNO ID: [id number] Author: GINNY NERI MD Service: ? Author Type: Physician Type: Progress Notes Filed: 12/31/2024 11:01 Note Text: Bobo Sorensen is a 79 year old female. Consultation was requested by Dr. Perez for an opinion regarding headache; my final assessment and recommendations will be communicated back to the requesting physician by way of shared medical record, or by letter via fax or [place] mail. Evaluation Date: 12/26/2024 Chief Complaint: Headache HPI: History was obtained from the patient and from outside records. Bobo Sorensen dates her history back to 2020. She was diagnosed with PMR in 2020 in [place] by Rheumatology. Managed with prednisone taper, started with 10 and currently on 2 mg. Since she moved to [place] 2 years ago, her PCP has been managing PMR. Tried to come off prednisone completely in May 2024. In September 2024, she started having mobility issue not joint pain. Checked ESR and was elevated. Since September she has been back on Prednisone. While she was off the prednisone, she noticed she has a sharp pain on the R temporal area. She denied any jaw claudication, vision loss or double vision. She follows with her sound effects person, last visit was a month ago, and exam was normal. She said she has a history of silent migraine (only gets visual aura) and has increase in frequency since September. After she is back on steroid her temporal pain is diminished. Noticed steroid affect her where she gets brain fog and nowadays is affecting her temper. PMHx: - HTN - Osteoporosis - PMR Ref Range AND Units 3 mo ago (09/26/24) 9 mo ago (03/19/24) 1 yr ago (12/17/23) 1 yr ago (09/12/23) 1 yr ago (05/21/23) 1 yr ago (03/06/23) Sed Rate, Westergren 0 - 30 mm/hr 39 High ROS PAST SURGICAL HISTORY: PAST SURGICAL HISTORY Procedure Laterality Date TOTAL ABDOM HYSTERECTOMY N/A 1983 CURRENT MEDICATIONS: Current Outpatient Medications Medication Sig predniSONE (DELTASONE) 1 mg tablet TAKE 2 TABLETS BY MOUTH ONCE DAILY. dilTIAZem CR (TIADYLT ER) 180 mg 24 hr capsule Take 1 capsule by mouth once daily. cholecalciferol (VITAMIN D-3) 50 mcg (2,000 unit) tablet Take 2,000 Units by mouth once daily. (Patient not taking: Reported on 11/26/2024) Mometasone 0.1 % solution Apply to affected area once daily. No current facility-administered medications for this visit. ALLERGIES: Clindamycin and Sulfa (Sulfonamide Antibiotics) SOCIAL HISTORY: PHYSICAL EXAMINATION BP 176/70 Pulse 84 Temp 36.2 ?C (97.1 ?F) (Temporal) Ht 162.6 cm (5' 4.02) Wt 71.2 kg (156 lb 15.5 oz) LMP (LMP Unknown) BMI 26.93 kg/m? GENERAL APPEARANCE: well SKIN: normal without rashes or lesions HEAD: normal; temporal arteries with normal pulsation without nodularity or tenderness LUNGS: on RA. No acute distress HEART: RRR, no gallops, rubs or murmurs ABDOMEN: soft, non-tender, normal BS MUSCULOSKELETAL: OA nodules VASCULAR EXAM Carotid: normal and equal bilaterally Brachial: normal and equal bilaterally Radial: normal and equal bilaterally Dorsalis pedis: normal and equal bilaterally Bruit over large vessels: negative NEURO: normal strength LE proximally and distally ASSESSMENT: Bobo Sorensen dates her history back to 2020. She was diagnosed with PMR in 2020 in [place] by Rheumatology. Managed with prednisone taper, started with 10 and currently on 2 mg. Since she moved to [place] 2 years ago, her PCP has been managing PMR. Tried to come off prednisone completely in May 2024. In September 2024, she started having mobility issue not joint pain. Checked ESR and was elevated. Since September she has been back on Prednisone. New onset right sided temporal pain when she went off prednisone in the fall. Restarted 2 mg again by PCP because ESR went up to 39. Pain improved but still there - sometimes its positional when pending forward. She also reports more frequent silent migraine with aura and on the top of her head one spot of pain No claudication, visual loss, double vision, or clear PMR symptoms Repeat ESR of 24 after starting 2 mg of prednisone which causing mood changes and brain fog I discussed with her that overall I have low suspicion that she has GCA but since her APRs were elevated we will obtain TAUS and if its negative but APRs continue to be elevated we will consider TAB and LVV images such as MRA or CTA For now we will reduce prednisone to 1 mg Consult neurology to address migraine We will update her DXA scan and vit D level PT for thigh muscles Ginny Neri MD Rheumatology staff December 31[facility] encounter Note* Telephone Encounter - Chirag Whittaker LPN - 12/01/2024 3:47 PM EDT Referral for [place] [facility] sent through [facility] Chirag Whittaker LPN December 01, 2024 3:50 PM [facility]05-[facility] Miscellaneous Notes* Telephone Encounter - Chirag Whittaker LPN - 12/01/2024 3:47 PM EDT Referral for [place] [facility] sent through [facility] Chirag Whittaker LPN December 01, 2024 3:50 PM documented in this encounterCommunity [facility]05-18-2025 NoteHNO ID: [id number] Author: GELY PEREZ MD Service: ? Author Type: Physician Type: Progress Notes Filed: 11/30/2024 20:19 Note Text: Dolly Garrison is an 79-year-old female with a history of PMR, presenting for evaluation of side effects from Prednisone and new onset cephalalgia. PMR: - Currently taking Prednisone 2 mg daily. - Reports increased irritability and brain fog since resuming Prednisone. - Denies pain, but notes stiffness and difficulty with mobility, particularly when getting up and down from chairs. - Previous ESR readings were around 42 mm/hr, considered normal by [facility] in [place]. Cephalalgia: - New onset of really bad pains in the head, initially fleeting but now lasting longer. - Pain is localized and does not resemble previous migraine episodes. - Has a history of migraines and silent migraines, with 5 episodes this year. 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 - Feels the right eye is compensating for the left. - Next appointment with the retina specialist is on the . Review of Systems GENERAL: No weight loss, malaise or fevers. 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 NECK: Negative for lumps, goiter, pain and significant neck swelling. RESPIRATORY: Negative for cough, dyspnea or shortness of breath. CARDIOVASCULAR: Negative for chest pain, leg swelling, CHF or palpitations. GI: No nausea, vomiting, diarrhea, heartburn, abdominal pain, blood in stool or black stool. GENITOURINARY: No history of dysuria, frequency or incontinence. MUSCULOSKELETAL: Negative for joint pain or swelling, or muscle pain. No back pain. Positive for stiffness with mobility difficulties. SKIN: Negative for lesions, rash and itching. PSYCH: Positive for irritability and anger, negative for anxiety or depression. HEMATOLOGY/LYMPHOLOGY: No bleeding concerns. NEURO: Positive for head pain, balance problems and ?brain fog.? Negative for syncope, paralysis, seizures or tremors. ENDOCRINE: No history of polydipsia, increased thirst or other endocrine symptoms. PAST SURGICAL HISTORY Procedure Laterality Date TOTAL ABDOM HYSTERECTOMY N/A 1984 History reviewed. No pertinent past medical history. History reviewed. No pertinent family history. Social History Tobacco Use Smoking status: Never Passive exposure: Never Smokeless tobacco: Never Vaping Use Vaping status: Never Used Substance Use Topics Alcohol use: Not Currently Drug use: Not Currently ALLERGIES Allergen Reactions Clindamycin Swelling Sulfa (Sulfonamide * Unknown MEDICATIONS: predniSONE (DELTASONE) 1 mg tablet TAKE 2 TABLETS BY MOUTH ONCE DAILY. dilTIAZem CR (TIADYLT ER) 180 mg 24 hr capsule Take 1 capsule by mouth once daily. Mometasone 0.1 % solution Apply to affected area once daily. cholecalciferol (VITAMIN D-3) 50 mcg (2,000 unit) tablet Take 2,000 Units by mouth once daily. (Patient not taking: Reported on 11/26/2024) Allergies, past surgical history, family history and past medical history were reviewed per this encounter. Medications were reviewed and verified. 09/24/2024 11/26/2024 INTAKE PAIN ASSESSMENT Are you having pain associated with your visit today? No No If pain assessment is 0, no action needed. If pain assessment is positive, please see assessment and plain. Objective Labs: - ESR: 42 mm/hr (slightly elevated) BP (P) 158/80 (BP Site: Left Arm, BP Position: Sitting, BP Cuff Size: Large Adult) Pulse 66 Temp 36.1 ?C (97 ?F) (Temporal) Resp 16 Ht 162.6 cm (5' 4) Wt 71.3 kg (157 lb 3.2 oz) LMP (LMP Unknown) SpO2 97% BMI 26.98 kg/m? Physical Exam GENERAL: NAD, alert and oriented. SKIN: Unremarkable, no rash or skin lesions. HEAD: Normocephalic, no tenderness noted. EYES: PERRLA, EOMI, conjunctiva clear. EARS: External ears normal, canals clear, TM's normal. NOSE/SINUSES: Nares normal. Septum midline. OROPHARYNX: Lips, mucosa, and tongue normal, good dentition. No oral lesions noted. NECK: Supple, no lymphadenopathy, normal thyroid, no carotid bruits. LUNGS: Clear to auscultation bilaterally, no wheezes/rhonchi/rales. HEART: Regular rate and rhythm, no murmurs. No ectopy. EXTREMITIES: Normal, no deformities, no skin discoloration, no edema. NEURO: Awake, alert and oriented x3, cranial nerves II-XII grossly intact, normal gait, no involuntary motions. Procedures Assessment and Plan Gely Perez MD 11/26/2024 Recording using [employer] software for draft documentation of the visit was discussed with the patient/authorized cordage sales representative; all questions welcomed and answered. Patient/authorized cordage sales representative agreed to [facility]05-18-2025 History of Present illness Narrative* Gely Perez MD - 11/30/2024 8:19 PM EDT Dolly Garrison is an 79-year-old female with a history of PMR, presenting for evaluation of side effects from Prednisone and new onset cephalalgia. PMR: - Currently taking Prednisone 2 mg daily. - Reports increased irritability and brain fog since resuming Prednisone. - Denies pain, but notes stiffness and difficulty with mobility, particularly when getting up and down from chairs. - Previous ESR readings were around 42 mm/hr, considered normal by [facility] in [place]. Cephalalgia: - New onset of really bad pains in the head, initially fleeting but now lasting longer. - Pain is localized and does not resemble previous migraine episodes. - Has a history of migraines and silent migraines, with 5 episodes this year. 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 - Feels the right eye is compensating for the left. - Next appointment with the retina specialist is on the . Review of Systems GENERAL: No weight loss, malaise or fevers. 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 NECK: Negative for lumps, goiter, pain and significant neck swelling. RESPIRATORY: Negative for cough, dyspnea or shortness of breath. CARDIOVASCULAR: Negative for chest pain, leg swelling, CHF or palpitations. GI: No nausea, vomiting, diarrhea, heartburn, abdominal pain, blood in stool or black stool. GENITOURINARY: No history of dysuria, frequency or incontinence. MUSCULOSKELETAL: Negative for joint pain or swelling, or muscle pain. No back pain. Positive for stiffness with mobility difficulties. SKIN: Negative for lesions, rash and itching. PSYCH: Positive for irritability and anger, negative for anxiety or depression. HEMATOLOGY/LYMPHOLOGY: No bleeding concerns. NEURO: Positive for head pain, balance problems and brain fog. Negative for syncope, paralysis, seizures or tremors. ENDOCRINE: No history of polydipsia, increased thirst or other endocrine symptoms. PAST SURGICAL HISTORY Procedure Laterality Date TOTAL ABDOM HYSTERECTOMY N/A 1983 History reviewed. No pertinent past medical history. History reviewed. No pertinent family history. Social History Tobacco Use Smoking status: Never Passive exposure: Never Smokeless tobacco: Never Vaping Use Vaping status: Never Used Substance Use Topics Alcohol use: Not Currently Drug use: Not Currently ALLERGIES Allergen Reactions Clindamycin Swelling Sulfa (Sulfonamide * Unknown MEDICATIONS: predniSONE (DELTASONE) 1 mg tablet TAKE 2 TABLETS BY MOUTH ONCE DAILY. dilTIAZem CR (TIADYLT ER) 180 mg 24 hr capsule Take 1 capsule by mouth once daily. Mometasone 0.1 % solution Apply to affected area once daily. cholecalciferol (VITAMIN D-3) 50 mcg (2,000 unit) tablet Take 2,000 Units by mouth once daily. (Patient not taking: Reported on 11/26/2024) Allergies, past surgical history, family history and past medical history were reviewed per this encounter. Medications were reviewed and verified. 09/24/2024 11/26/2024 INTAKE PAIN ASSESSMENT Are you having pain associated with your visit today? No No If pain assessment is 0, no action needed. If pain assessment is positive, please see assessment and plain. Objective Labs: - ESR: 42 mm/hr (slightly elevated) BP (P) 158/80 (BP Site: Left Arm, BP Position: Sitting, BP Cuff Size: Large Adult) Pulse 66 Temp 36.1 C (97 F) (Temporal) Resp 16 Ht 162.6 cm (5' 4) Wt 71.3 kg (157 lb 3.2 oz) LMP (LMP Unknown) SpO2 97% BMI 26.98 kg/m Physical Exam GENERAL: NAD, alert and oriented. SKIN: Unremarkable, no rash or skin lesions. HEAD: Normocephalic, no tenderness noted. EYES: PERRLA, EOMI, conjunctiva clear. EARS: External ears normal, canals clear, TM's normal. NOSE/SINUSES: Nares normal. Septum midline. OROPHARYNX: Lips, mucosa, and tongue normal, good dentition. No oral lesions noted. NECK: Supple, no lymphadenopathy, normal thyroid, no carotid bruits. LUNGS: Clear to auscultation bilaterally, no wheezes/rhonchi/rales. HEART: Regular rate and rhythm, no murmurs. No ectopy. EXTREMITIES: Normal, no deformities, no skin discoloration, no edema. NEURO: Awake, alert and oriented x3, cranial nerves II-XII grossly intact, normal gait, no involuntary motions. Procedures Assessment and Plan Gely Perez MD 11/26/2024 Recording using [employer] software for draft documentation of the visit was discussed with the patient/authorized cordage sales representative; all questions welcomed and answered. Patient/authorized cordage sales representative agreed to proceed * Karla García LPN - 11/26/2024 10:13 AM EDT Bobo is back on Prednisone 2 mg daily for polymyalgia Rheumatica She is having brain fog and balance problems She is also having a lot of anger issues and she said that is just not me. No refills needed Karla García LPN November 26, 2024 10:19 AM [facility] NoteHNO ID: [id number] Author: KARLA GARCÍA LPN Service: ? Author Type: LICENSED NURSE Type: Progress Notes Filed: 11/30/2024 20:19 Note Text: Bobo is back on Prednisone 2 mg daily for polymyalgia Rheumatica She is having brain fog and balance problems She is also having a lot of anger issues and she said that is just not me. No refills needed Karla García LPN November 26, 2024 10:19 [facility]* Telephone Encounter - Pepe Silva LPN - 11/25/2024 10:19 AM EDT Last Office Visit: 09/24/24 Next visit: 11/26/24 Requested Prescriptions Pending Prescriptions Disp Refills predniSONE (DELTASONE) 1 mg tablet [Pharmacy Med Name: predniSONE 1 MG TABS 1 Tablet] 180 tablet 2 Sig: TAKE 2 TABLETS BY MOUTH ONCE DAILY. Pepe Silva LPN November 25, 2024 10:23 AM [facility]05-13[facility] Miscellaneous Notes* Telephone Encounter - Pepe Silva LPN - 11/25/2024 10:19 AM EDT Last Office Visit: 09/24/24 Next visit: 11/26/24 Requested Prescriptions Pending Prescriptions Disp Refills predniSONE (DELTASONE) 1 mg tablet [Pharmacy Med Name: predniSONE 1 MG TABS 1 Tablet] 180 tablet 2 Sig: TAKE 2 TABLETS BY MOUTH ONCE DAILY. Pepe Silva LPN November 25, 2024 10:23 AM documented in [facility]Community [facility] Telephone encounter Note * Telephone Encounter - Pepe Silva LPN - 11/24/2024 10:48 AM EDT Patient notified of information, verbalized understanding. No questions, comments, or concerns at this time. Pepe Silva LPN November 24, 2024 10:48 AM [facility]05-[facility] Telephone encounter Note* Telephone Encounter - Pepe Silva LPN - 11/24/2024 10:48 AM EDT ----- Message from Gely Perez MD sent at 11/24/2024 9:49 AM EDT ----- improved [facility] Miscellaneous Notes* Telephone Encounter - Pepe Silva LPN - 11/24/2024 10:48 AM EDT Patient notified of information, verbalized understanding. No questions, comments, or concerns at this time. Pepe Silva LPN November 24, 2024 10:48 AM * Telephone Encounter - Pepe Silva LPN - 11/24/2024 10:48 AM EDT ----- Message from Gely Perez MD sent at 11/24/2024 9:49 AM EDT ----- improved documented in [facility] encounterCommunity [facility] Telephone encounter Note * Telephone Encounter - Chirag Whittaker LPN - 09/29/2024 3:35 PM EDT Patient notified of verbal order from Dr. Perez to this nurse to take prednisone 2 mg daily. Also, recheck Sed Rate in a few weeks. Please sign pended order Pended Orders ID Status Description Pended By When Reason [id number] Pended SEDIMENTATION RATE, Chirag Dawson LPN 09/29/24 1539 Chirag Whittaker LPN September 29, 2024 3:39 PM [facility] Miscellaneous Notes* Telephone Encounter - Chirag Whittaker LPN - 09/29/2024 3:35 PM EDT Patient notified of verbal order from Dr. Perez to this nurse to take prednisone 2 mg daily. Also, recheck Sed Rate in a few weeks. Please sign pended order Pended Orders ID Status Description Pended By When Reason [id number] Pended SEDIMENTATION RATE, DEYSI Chirag Whittaker LPN 09/29/24 1539 Chirag Whittaker LPN September 29, 2024 3:39 PM * Telephone Encounter - Dominique Mg - 09/29/2024 1:54 PM EDT I spoke with Bobo per Dr. Perez Sed rate elevated. Restart prednisone at previous maintenance dose. Bobo would like to confirm by the previous dose you are referring to would be Prednisone 1 mg a day? She will need a refill on whichever dose you're having her take. Kenisha for staff - She will be using [facility]. Please advise. Thank you. Dominique Juarez September 29, 2024 2:10 PM * Telephone Encounter - Dominique Mg - 09/29/2024 1:54 PM EDT ----- Message from Gely Perez MD sent at 09/27/2024 1:23 PM EDT ----- Sed rate elevated. Restart prednisone at previous maintenance dose. documented in [facility]Community [facility] Telephone encounter Note * Telephone Encounter - Dominique Mg - 09/29/2024 1:54 PM EDT I spoke with Bobo per Dr. Perez Sed rate elevated. Restart prednisone at previous maintenance dose. Bobo would like to confirm by the previous dose you are referring to would be Prednisone 1 mg a day? She will need a refill on whichever dose you're having her take. Kenisha for staff - She will be using [email or web address]. Please advise. Thank you. Dominique Juarez September 29, 2024 2:10 PM [facility] Telephone encounter Note* Telephone Encounter - Dominique Mg - 09/29/2024 1:54 PM EDT ----- Message from Gely Perez MD sent at 09/27/2024 1:23 PM EDT ----- Sed rate elevated. Restart prednisone at previous maintenance dose. [facility] Instructions* Patient Instructions* Gely Perez MD - 09/24/2024 11:02 AM EDT Screening schedule The following prevention plan is recommended: Depression Screening Never done Anxiety Screening Never done DTaP,Tdap,Td Vaccine(1 - Tdap) Never done Shingrix Vaccine(1 of 2) Never done Pneumococcal Vaccine: 50+(1 of 1 - PCV) Never done Bone Density Screening Never done RSV Vaccine(1 - 1-dose 75+ series) Never done Influenza Vaccine(1) due on 03/16/2024 Covid-19 Vaccine( - 2023-25 season) Never done Advance Directive Discussion due on 07/16/2024 WHAT YOU CAN DO TO PREVENT FALLS Many falls can be prevented. By making some changes, you can lower your chances of falling. Four things YOU can do to prevent falls for you* and your caregiver 1. Begin a regular exercise program Exercise is one of the most important ways to lower your chances of falling. It makes you stronger and helps you feel better. Exercises that improve balance and coordination (like Wei Chi) are the most helpful. Lack of exercise leads to weakness and increases your chances of falling. Ask your doctor or health care provider about the best type of exercise program for you. 2. Have your health care provider review your medicines Have your doctor or pharmacist review all the medicines you take, even [id number] medicines. As you get older, the way medicines work in your body can change. Some medicines, or combinations of medicines, can make you sleepy or dizzy andcan cause you to fall. 3. Have your vision checked Have your eyes checked by an eye doctor at least once a year. You may be wearing the wrong glasses or have a condition like glaucoma or cataracts that limits your vision. Poor vision can increase your chances of falling. 4. Make your home safer About half of all falls happen at home. To make your home safer: Remove things you can trip over (like papers, books, clothes, and shoes) from stairs and places where you walk. Remove small throw rugs or use double-sided tape to keep the rugs from slipping. Keep items you use often in cabinets you can reach easily without using a step stool. Have grab bars put in next to your toilet and in the tub or shower. Use non-slip mats in the bathtub and on shower floors. Improve the lighting in your home. As you get older, you need brighter lights to see well. Hang light-weight curtains or shades to reduce glare. Have handrails and lights put in on all staircases. Wear shoes both inside and outside the house. Avoid going barefoot or wearing slippers. For more information, contact: Centers for Disease Control and Prevention www.cdc.gov/injury * This information may not apply if you have certain medical conditions. documented in this encounterCommunity [facility]03-12-2025 NoteHNO ID: [id number] Author: GELY PEREZ MD Service: ? Author Type: Physician Type: Progress Notes Filed: 09/24/2024 11:03 Note Text: Dolly Sorensen is a 79 year old female. She presents today for her Medicare wellness visit. Additionally she follows up for multiple medical problems. See list. Her blood pressures been under good control on her current medication. She has weaned off of her prednisone for treatment of her polymyalgia rheumatica. She is tolerating the wean mostly well. She does have some occasional pain in her thigh and her hip. He has continued eczema for which she uses the mometasone. This is helping. She complains of bilateral ankle swelling and swelling in her feet. She was previously on compression stockings. But she cannot get these on. Swelling is better in the morning worse at night. Review of Systems Constitutional: Negative. HENT: Negative. Eyes: Negative. Respiratory: Negative. Cardiovascular: Negative. Gastrointestinal: Negative. Endocrine: Negative. Genitourinary: Negative. Musculoskeletal: Negative. Skin: Negative. Allergic/Immunologic: Negative. Neurological: Negative. Hematological: Negative. Psychiatric/Behavioral: Negative. PAST SURGICAL HISTORY Procedure Laterality Date TOTAL ABDOM HYSTERECTOMY N/A 1984 History reviewed. No pertinent past medical history. History reviewed. No pertinent family history. Social History Tobacco Use Smoking status: Never Passive exposure: Never Smokeless tobacco: Never Vaping Use Vaping status: Never Used Substance Use Topics Alcohol use: Not Currently Drug use: Not Currently ALLERGIES Allergen Reactions Clindamycin Swelling Sulfa (Sulfonamide * Unknown MEDICATIONS: vit A/vit C/biotin/zinc/copper ([id number],VIT A,C-BIOTIN, ORAL) Take by mouth. dilTIAZem CR (TIADYLT ER) 180 mg 24 hr capsule Take 1 capsule by mouth once daily. cholecalciferol (VITAMIN D-3) 50 mcg (2,000 unit) tablet Take 2,000 Units by mouth once daily. Mometasone 0.1 % solution Apply to affected area once daily. Allergies, past surgical history, family history and past medical history were reviewed per this encounter. Medications were reviewed and verified. 03/19/2024 09/24/2024 INTAKE PAIN ASSESSMENT Are you having pain associated with your visit today? No No If pain assessment is 0, no action needed. If pain assessment is positive, please see assessment and plain. Objective BP 120/78 (BP Site: Left Arm, BP Position: Sitting, BP Cuff Size: Regular Adult) Pulse 66 Temp 36.2 ?C (97.1 ?F) (Temporal) Resp 18 Ht 162.6 cm (5' 4) Wt 71.7 kg (158 lb) LMP (LMP Unknown) SpO2 97% BMI 27.12 kg/m? Physical Exam Vitals reviewed. Constitutional: Appearance: Normal appearance. HENT: Head: Normocephalic and atraumatic. Nose: Nose normal. Eyes: Extraocular Movements: Extraocular movements intact. Pupils: Pupils are equal, round, and reactive to light. Cardiovascular: Rate and Rhythm: Normal rate and regular rhythm. Pulmonary: Effort: Pulmonary effort is normal. Breath sounds: Normal breath sounds. Abdominal: General: Bowel sounds are normal. Palpations: Abdomen is soft. Musculoskeletal: General: Normal range of motion. Cervical back: Normal range of motion and neck supple. Right lower leg: Edema present. Left lower leg: Edema present. Skin: General: Skin is warm and dry. Capillary Refill: Capillary refill takes less than 2 seconds. Neurological: General: No focal deficit present. Mental Status: She is alert and oriented to person, place, and time. Mental status is at baseline. Psychiatric: Mood and Affect: Mood normal. Behavior: Behavior normal. Procedures Assessment and Plan Encounter Diagnosis ICD-10-CM 1. Encounter for counseling regarding advance directives Z71.89 ADVANCE CARE PLAN DISCUSSION 2. Screening for depression Z13.31 DEPRESSION SCREENING 3. Encounter for screening examination for other mental health and behavioral disorders Z13.39 ANXIETY SCREENING 4. Vitamin D deficiency E55.9 VITAMIN D 25 HYDROXY 5. Lipid screening Z13.220 LIPID PANEL BASIC 6. Screening for deficiency anemia Z13.0 COMPLETE BLOOD COUNT AND DIFFERENTIAL 7. Wellness examination Z00.00 COMPREHENSIVE METABOLIC PANEL 8. Hypertension, essential I10 COMPREHENSIVE METABOLIC PANEL Blood pressure is improved and stable on current regimen. Continue present meds. 9. PMR (polymyalgia rheumatica) (HCC) M35.3 SEDIMENTATION RATE, WESTERGREN She has weaned off prednisone. Recheck sed rate 10. 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 Check TSH 11. Bilateral leg edema R60.0 Elevate lower extremities. Tubigrip's bilaterally. Avoid salt.. All open preventative health maintenance topics discussed with patient in detail. This includes risks and benefits regarding vaccines, cancer screening, healthy life style, and diet. Cont (more content not included)...[facility]03-[facility] History of Present illness Narrative* Gely Perez MD - 09/24/2024 10:58 AM EDT Images from the original note were not included. Subjective Bobo Sorensen is a 79 year old female. She presents today for her Medicare wellness visit. Additionally she follows up for multiple medical problems. See list. Her blood pressures been under good control on her current medication. She has weaned off of her prednisone for treatment of her polymyalgia rheumatica. She is tolerating the wean mostly well. She does have some occasional pain in her thigh and her hip. He has continued eczema for which she uses the mometasone. This is helping. She complains of bilateral ankle swelling and swelling in her feet. She was previously on compression stockings. But she cannot get these on. Swelling is better in the morning worse at night. Review of Systems Constitutional: Negative. HENT: Negative. Eyes: Negative. Respiratory: Negative. Cardiovascular: Negative. Gastrointestinal: Negative. Endocrine: Negative. Genitourinary: Negative. Musculoskeletal: Negative. Skin: Negative. Allergic/Immunologic: Negative. Neurological: Negative. Hematological: Negative. Psychiatric/Behavioral: Negative. PAST SURGICAL HISTORY Procedure Laterality Date TOTAL ABDOM HYSTERECTOMY N/A 1984 History reviewed. No pertinent past medical history. History reviewed. No pertinent family history. Social History Tobacco Use Smoking status: Never Passive exposure: Never Smokeless tobacco: Never Vaping Use Vaping status: Never Used Substance Use Topics Alcohol use: Not Currently Drug use: Not Currently ALLERGIES Allergen Reactions Clindamycin Swelling Sulfa (Sulfonamide * Unknown MEDICATIONS: vit A/vit C/biotin/zinc/copper (LYRD-FEGU-ONCL,VIT A,C-BIOTIN, ORAL) Take by mouth. dilTIAZem CR (TIADYLT ER) 180 mg 24 hr capsule Take 1 capsule by mouth once daily. cholecalciferol (VITAMIN D-3) 50 mcg (2,000 unit) tablet Take 2,000 Units by mouth once daily. Mometasone 0.1 % solution Apply to affected area once daily. Allergies, past surgical history, family history and past medical history were reviewed per this encounter. Medications were reviewed and verified. 03/19/2024 09/24/2024 INTAKE PAIN ASSESSMENT Are you having pain associated with your visit today? No No If pain assessment is 0, no action needed. If pain assessment is positive, please see assessment and plain. Objective BP 120/78 (BP Site: Left Arm, BP Position: Sitting, BP Cuff Size: Regular Adult) Pulse 66 Temp 36.2 C (97.1 F) (Temporal) Resp 18 Ht 162.6 cm (5' 4) Wt 71.7 kg (158 lb) LMP (LMP Unknown) SpO2 97% BMI 27.12 kg/m Physical Exam Vitals reviewed. Constitutional: Appearance: Normal appearance. HENT: Head: Normocephalic and atraumatic. Nose: Nose normal. Eyes: Extraocular Movements: Extraocular movements intact. Pupils: Pupils are equal, round, and reactive to light. Cardiovascular: Rate and Rhythm: Normal rate and regular rhythm. Pulmonary: Effort: Pulmonary effort is normal. Breath sounds: Normal breath sounds. Abdominal: General: Bowel sounds are normal. Palpations: Abdomen is soft. Musculoskeletal: General: Normal range of motion. Cervical back: Normal range of motion and neck supple. Right lower leg: Edema present. Left lower leg: Edema present. Skin: General: Skin is warm and dry. Capillary Refill: Capillary refill takes less than 2 seconds. Neurological: General: No focal deficit present. Mental Status: She is alert and oriented to person, place, and time. Mental status is at baseline. Psychiatric: Mood and Affect: Mood normal. Behavior: Behavior normal. Procedures Assessment and Plan Encounter Diagnosis ICD-10-CM 1. Encounter for counseling regarding advance directives Z71.89 ADVANCE CARE PLAN DISCUSSION 2. Screening for depression Z13.31 DEPRESSION SCREENING 3. Encounter for screening examination for other mental health and behavioral disorders Z13.39 ANXIETY SCREENING 4. Vitamin D deficiency E55.9 VITAMIN D 25 HYDROXY 5. Lipid screening Z13.220 LIPID PANEL BASIC 6. Screening for deficiency anemia Z13.0 COMPLETE BLOOD COUNT AND DIFFERENTIAL 7. Wellness examination Z00.00 COMPREHENSIVE METABOLIC PANEL 8. Hypertension, essential I10 COMPREHENSIVE METABOLIC PANEL Blood pressure is improved and stable on current regimen. Continue present meds. 9. PMR (polymyalgia rheumatica) (HCC) M35.3 SEDIMENTATION RATE, WESTERGREN She has weaned off prednisone. Recheck sed rate 10. 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 Check TSH 11. Bilateral leg edema R60.0 Elevate lower extremities. Tubigrip's bilaterally. Avoid salt.. All open preventative health maintenance topics discussed with patient in detail. This includes risks and benefits regarding vaccines, cancer screening, healthy life style, and diet. Continue present medications. Check labs as above. Monitor blood pressure regularly. Exercise as tolerated. Maintain good diet. Follow-up in 6 months. Medicare Health Risk Assessment General Health Good Exercise: Minutes/Day 30 min Exercise: Days/Week 7 days Alcohol: Daily Use Never Alcohol: Drinks/Day Patient does not drink Alcohol: 6 or more drinks Never Feel off balance No Concerns: Teeth/Dentures No Concerns: Sexual function No Troubled by feelings None of the above Frequency: Eating healthy diet Nearly every day ADLs requiring help None of the above Safety precautions in home/vehicle No Smoke, vape, chews tobacco No Difficulty hearing No Difficulty seeing No Current Providers Specialists: I have reviewed specialist-related care of the patient in the medical record. Medical/Family history review Reviewed and updated problem list, medical/surgical/family/social history, medications, and allergies. Opioid use review Opioid Medications (last 90 days) No data to display Anxiety/Depression screening PHQ-2 Score: 0 (Lower risk for depression) JEANETTE-2 Score: 0 (Lower risk for anxiety) Recommendation: no further intervention at this time Cognitive screening Mini Cog Score: 5 Cognitive screening reviewed and No further action needed (score 3-5). Functional Observation Was the patient's Timed Up & Go test unsteady or >= 12 seconds? No Advance Care Planning Surrogate decision maker documented and/or advance directives scanned in chart Measurements BP 120/78 (BP Site: Left Arm, BP Position: Sitting, BP Cuff Size: Regular Adult) Pulse 66 Temp 36.2 C (97.1 F) (Temporal) Resp 18 Ht 162.6 cm (5' 4) Wt 71.7 kg (158 lb) LMP (LMP Unknown) SpO2 97% BMI 27.12 kg/m Vision Screening: Follows with optometry/ophthalmology Assessment/Plan Medicare annual wellness visit, subsequent (Z00.00) - Counseled on healthy diet and regular exercise - Fall avoidance information provided - Personalized prevention plan provided * Chirag Whittaker LPN - 09/24/2024 10:00 AM EDT DUE HEALTH MAINTENANCE DTaP,Tdap,Td Vaccine(1 - Tdap) declined Shingrix Vaccine(1 of 2) declined Pneumococcal Vaccine: 50+(1 of 1 - PCV) declined Bone Density Screening Never RSV Vaccine(1 - 1-dose 75+ series) declined Influenza Vaccine(1) declined Covid-19 Vaccine( - season) declined Chirag Whittaker LPN September 24, 2024 10:15 AM documented in [facility] NoteHNO ID: [id number] Author: CHIRAG WHITTAKER LPN Service: ? Author Type: LICENSED NURSE Type: Progress Notes Filed: 09/24/2024 11:03 Note Text: DUE HEALTH MAINTENANCE DTaP,Tdap,Td Vaccine(1 - Tdap) declined Shingrix Vaccine(1 of 2) declined Pneumococcal Vaccine: 50+(1 of 1 - PCV) declined Bone Density Screening Never RSV Vaccine(1 - 1-dose 75+ series) declined Influenza Vaccine(1) declined Covid-19 Vaccine( - season) declined Chirag Whittaker LPN September 24, 2024 10:15 [facility]09-04-2024 NoteHNO ID: [id number] Author: GELY PEREZ MD Service: ? Author Type: Physician Type: Progress Notes Filed: 03/19/2024 11:32 Note Text: Dolly Sorensen is a 78 year old female. She presents today for follow-up for her polymyalgia rheumatica. She has reduced her dose of prednisone to 2 mg for the last few months. She has tolerated this reduction well in terms of her PMR. She would like to get completely off of the prednisone. She believes it is making her feel more tired. She feels better on the days she misses her dose. Review of Systems Constitutional: Negative. HENT: Negative. Eyes: Negative. Respiratory: Negative. Cardiovascular: Negative. Gastrointestinal: Negative. Endocrine: Negative. Genitourinary: Negative. Musculoskeletal: Negative. Skin: Negative. Allergic/Immunologic: Negative. Neurological: Negative. Hematological: Negative. Psychiatric/Behavioral: Negative. PAST SURGICAL HISTORY 1984: TOTAL ABDOM HYSTERECTOMY; N/A History reviewed. No pertinent past medical history. History reviewed. No pertinent family history. Social History Tobacco Use Smoking status: Never Passive exposure: Never Smokeless tobacco: Never Vaping Use Vaping status: Never Used Substance Use Topics Alcohol use: Not Currently Drug use: Not Currently ALLERGIES Allergen Reactions Clindamycin Swelling Sulfa (Sulfonamide * Unknown MEDICATIONS: cholecalciferol (VITAMIN D-3) 50 mcg (2,000 unit) tablet Take 2,000 Units by mouth once daily. MULTIVITAMIN ORAL Take 1 tablet by mouth once daily. predniSONE (DELTASONE) 1 mg tablet Take 2 tablets by mouth once daily. Mometasone 0.1 % solution Apply to affected area once daily. dilTIAZem CR (TIADYLT ER) 180 mg 24 hr capsule Take 1 capsule by mouth once daily. Allergies, past surgical history, family history and past medical history were reviewed per this encounter. Medications were reviewed and verified. 12/17/2023 03/19/2024 INTAKE PAIN ASSESSMENT Are you having pain associated with your visit today? No No If pain assessment is 0, no action needed. If pain assessment is positive, please see assessment and plain. Objective BP 130/88 (BP Site: Left Arm, BP Position: Sitting, BP Cuff Size: Regular Adult) Pulse 82 Temp 36.4 ?C (97.6 ?F) (Temporal) Resp 18 Ht 162.6 cm (5' 4) Wt 69.9 kg (154 lb 3.2 oz) LMP (LMP Unknown) SpO2 98% BMI 26.47 kg/m? Physical Exam Vitals reviewed. Constitutional: Appearance: Normal appearance. HENT: Head: Normocephalic and atraumatic. Nose: Nose normal. Eyes: Extraocular Movements: Extraocular movements intact. Pupils: Pupils are equal, round, and reactive to light. Cardiovascular: Rate and Rhythm: Normal rate and regular rhythm. Pulmonary: Effort: Pulmonary effort is normal. Breath sounds: Normal breath sounds. Abdominal: General: Bowel sounds are normal. Palpations: Abdomen is soft. Musculoskeletal: General: Normal range of motion. Cervical back: Normal range of motion and neck supple. Skin: General: Skin is warm and dry. Capillary Refill: Capillary refill takes less than 2 seconds. Neurological: General: No focal deficit present. Mental Status: She is alert and oriented to person, place, and time. Mental status is at baseline. Psychiatric: Mood and Affect: Mood normal. Behavior: Behavior normal. Assessment and Plan Encounter Diagnosis ICD-10-CM 1. PMR (polymyalgia rheumatica) ([facility]) M35.3 SEDIMENTATION RATE, WESTERGREN 2. Hypertension, essential I10 Reduce dose of prednisone to 1 mg. May wean off of prednisone completely over the course of the next 3 months if tolerated. Recheck sed rate.. Monitor blood pressure regularly. Exercise as tolerated. Maintain good diet. Follow-up in 6 months. Gely Perez [facility]09-04-2024 History of Present illness Narrative* Gely Perez MD - 03/19/2024 10:42 AM EDT Subjective Bobo Sorensen is a 78 year old female. She presents today for follow-up for her polymyalgia rheumatica. She has reduced her dose of prednisone to 2 mg for the last few months. She has tolerated thisreduction well in terms of her PMR. She would like to get completely off of the prednisone. She believes it is making her feel more tired. She feels better on the days she misses her dose. Review of Systems Constitutional: Negative. HENT: Negative. Eyes: Negative. Respiratory: Negative. Cardiovascular: Negative. Gastrointestinal: Negative. Endocrine: Negative. Genitourinary: Negative. Musculoskeletal: Negative. Skin: Negative. Allergic/Immunologic: Negative. Neurological: Negative. Hematological: Negative. Psychiatric/Behavioral: Negative. PAST SURGICAL HISTORY 1984: TOTAL ABDOM HYSTERECTOMY; N/A History reviewed. No pertinent past medical history. History reviewed. No pertinent family history. Social History Tobacco Use Smoking status: Never Passive exposure: Never Smokeless tobacco: Never Vaping Use Vaping status: Never Used Substance Use Topics Alcohol use: Not Currently Drug use: Not Currently ALLERGIES Allergen Reactions Clindamycin Swelling Sulfa (Sulfonamide * Unknown MEDICATIONS: cholecalciferol (VITAMIN D-3) 50 mcg (2,000 unit) tablet Take 2,000 Units by mouth once daily. MULTIVITAMIN ORAL Take 1 tablet by mouth once daily. predniSONE (DELTASONE) 1 mg tablet Take 2 tablets by mouth once daily. Mometasone 0.1 % solution Apply to affected area once daily. dilTIAZem CR (TIADYLT ER) 180 mg 24 hr capsule Take 1 capsule by mouth once daily. Allergies, past surgical history, family history and past medical history were reviewed per this encounter. Medications were reviewed and verified. 12/17/2023 03/19/2024 INTAKE PAIN ASSESSMENT Are you having pain associated with your visit today? No No If pain assessment is 0, no action needed. If pain assessment is positive, please see assessment and plain. Objective BP 130/88 (BP Site: Left Arm, BP Position: Sitting, BP Cuff Size: Regular Adult) Pulse 82 Temp 36.4 C (97.6 F) (Temporal) Resp 18 Ht 162.6 cm (5' 4) Wt 69.9 kg (154 lb 3.2 oz) LMP (LMP Unknown) SpO2 98% BMI 26.47 kg/m Physical Exam Vitals reviewed. Constitutional: Appearance: Normal appearance. HENT: Head: Normocephalic and atraumatic. Nose: Nose normal. Eyes: Extraocular Movements: Extraocular movements intact. Pupils: Pupils are equal, round, and reactive to light. Cardiovascular: Rate and Rhythm: Normal rate and regular rhythm. Pulmonary: Effort: Pulmonary effort is normal. Breath sounds: Normal breath sounds. Abdominal: General: Bowel sounds are normal. Palpations: Abdomen is soft. Musculoskeletal: General: Normal range of motion. Cervical back: Normal range of motion and neck supple. Skin: General: Skin is warm and dry. Capillary Refill: Capillary refill takes less than 2 seconds. Neurological: General: No focal deficit present. Mental Status: She is alert and oriented to person, place, and time. Mental status is at baseline. Psychiatric: Mood and Affect: Mood normal. Behavior: Behavior normal. Assessment and Plan Encounter Diagnosis ICD-10-CM 1. PMR (polymyalgia rheumatica) (HCC) M35.3 SEDIMENTATION RATE, WESTERGREN 2. Hypertension, essential I10 Reduce dose of prednisone to 1 mg. May wean off of prednisone completely over the course of the next 3 months if tolerated. Recheck sed rate.. Monitor blood pressure regularly. Exercise as tolerated.Maintain good diet. Follow-up in 6 months. Gely Perez MD * Chirag Whittaker LPN - 03/19/2024 10:22 AM EDT Patient is in office for 6 month exam. Patient states this morning she had what she believes to be a panic attack. Patient states she really needs to get off of the prednisone she is taking for PMR. Chirag Whittaker LPN March 19, 2024 10:28 AM documented in this [facility] NoteHNO ID: [id number] Author: CHIRAG WHITTAKER LPN Service: ? Author Type: LICENSED NURSE Type: Progress Notes Filed: 03/19/2024 11:32 Note Text: Patient is in office for 6 month exam. Patient states this morning she had what she believes to be a panic attack. Patient states she really needs to get off of the prednisone she is taking for PMR. Chirag Whittaker LPN March 19, 2024 10:28 [facility]06-10-2024 Telephone encounter Note* Telephone Encounter - Jorge Anguiano - 12/24/2023 9:31 AM EDT Called patient to schedule an appointment to see Dr Aggarwal for ingrown nails, however I had to leavea VM [facility]06-10-2024 Miscellaneous Notes* Telephone Encounter - Jorge Anguiano - 12/24/2023 9:31 AM EDT Called patient to schedule an appointment to see Dr Aggarwal for ingrown nails, however I had to leavea VM documented in this encounterCommunity [facility] Telephone encounter Note * Telephone Encounter - Allyson Fleming MA - 12/20/2023 11:02 AM EDT Items addressed in this encounter: MyChart Encounter Podiatry referral Able to close encounter. Allyson Fleming MA December 20, 2023 11:02 AM 11:02 AM [facility] Miscellaneous Notes* Telephone Encounter - Allyson Fleming MA - 12/20/2023 11:02 AM EDT Items addressed in this encounter: MyChart Encounter Podiatry referral Able to close encounter. Allyson Fleming MA December 20, 2023 11:02 AM 11:02 AM documented in this encounterCommunity [facility] Telephone encounter Note * Telephone Encounter - Allyson Fleming MA - 12/20/2023 11:00 AM EDT Items addressed in this encounter: Fax/Forms Podiatry referral faxed to Dr Aggarwal Faxed via RightFax, fax confirmation received Able to close encounter. Allyson Fleming MA December 20, 2023 11:00 AM 11:00 AM [facility] Miscellaneous Notes* Telephone Encounter - Allyson Fleming MA - 12/20/2023 11:00 AM EDT Items addressed in this encounter: Fax/Forms Podiatry referral faxed to Dr Aggarwal [phone] Faxed via RightFax, fax confirmation received Able to close encounter. Allyson Fleming MA December 20, 2023 11:00 AM 11:00 AM documented in this encounterCommunity [facility]06-[facility]-2024 NoteHNO ID: [id number] Author: GELY PEREZ MD Service: ? Author Type: Physician Type: Progress Notes Filed: 12/17/2023 11:33 Note Text: Dolly Sorensen is a 78 year old female.The patient presents today for follow-up for multiple medical problems. See list. Her chronic medical problems have been stable. Her blood pressure is under good control. Additionally she complains today of eczema. She has on her arm and her ear. She has previously used an mometasone solution. Her PMR has been stable on the reduction in her dose to 2 and half milligrams of prednisone daily.. Review of Systems Constitutional: Negative. HENT: Negative. Eyes: Negative. Respiratory: Negative. Cardiovascular: Negative. Gastrointestinal: Negative. Endocrine: Negative. Genitourinary: Negative. Musculoskeletal: Negative. Skin: Negative. Allergic/Immunologic: Negative. Neurological: Negative. Hematological: Negative. Psychiatric/Behavioral: Negative. PAST SURGICAL HISTORY Procedure Laterality Date TOTAL ABDOM HYSTERECTOMY N/A 1984 History reviewed. No pertinent past medical history. History reviewed. No pertinent family history. Social History Tobacco Use Smoking status: Never Passive exposure: Never Smokeless tobacco: Never Vaping Use Vaping Use: Never used Substance Use Topics Alcohol use: Not Currently Drug use: Not Currently ALLERGIES Allergen Reactions Clindamycin Swelling Sulfa (Sulfonamide * Unknown MEDICATIONS: cholecalciferol (VITAMIN D-3) 50 mcg (2,000 unit) tablet Take 2,000 Units by mouth once daily. BIOTIN ORAL Take 1 tablet by mouth once daily. OTC MULTIVITAMIN ORAL Take 1 tablet by mouth once daily. dilTIAZem CR (TIADYLT ER) 180 mg 24 hr capsule Take 1 capsule by mouth once daily. predniSONE (DELTASONE) 1 mg tablet Take 2 tablets by mouth once daily. Mometasone 0.1 % solution Apply to affected area once daily. Allergies, past surgical history, family history and past medical history were reviewed per this encounter. Medications were reviewed and verified. Objective BP 128/78 (BP Site: Left Arm, BP Position: Sitting, BP Cuff Size: Large Adult) Pulse 78 Temp 36.9 ?C (98.4 ?F) (Temporal) Resp 16 Ht 162.6 cm (5' 4) Wt 69.5 kg (153 lb 2 oz) LMP (LMP Unknown) SpO2 98% BMI 26.28 kg/m? Physical Exam Vitals reviewed. Constitutional: Appearance: Normal appearance. HENT: Head: Normocephalic and atraumatic. Nose: Nose normal. Eyes: Extraocular Movements: Extraocular movements intact. Pupils: Pupils are equal, round, and reactive to light. Cardiovascular: Rate and Rhythm: Normal rate and regular rhythm. Pulmonary: Effort: Pulmonary effort is normal. Breath sounds: Normal breath sounds. Abdominal: General: Bowel sounds are normal. Palpations: Abdomen is soft. Musculoskeletal: General: Normal range of motion. Cervical back: Normal range of motion and neck supple. Skin: General: Skin is warm and dry. Capillary Refill: Capillary refill takes less than 2 seconds. Neurological: General: No focal deficit present. Mental Status: She is alert and oriented to person, place, and time. Mental status is at baseline. Psychiatric: Mood and Affect: Mood normal. Behavior: Behavior normal. Assessment and Plan Encounter Diagnosis ICD-10-CM 1. PMR (polymyalgia rheumatica) ([facility]) M35.3 SEDIMENTATION RATE, WESTERGREN C-REACTIVE PROTEIN 2. Ingrown nail L60.0 CONSULT TO PODIATRY 3. Vitamin D deficiency E55.9 VITAMIN D 25 HYDROXY Mometasone solution for eczema. Otherwise continue present medications. Check labs as above. Monitor blood pressure regularly. Exercise as tolerated. Maintain good diet. Follow-up in 6 months. Gely Perez, [facility]06-03-2024 History of Present illness Narrative* Gely Perez MD - 12/17/2023 11:30 AM EDT Subjective Bobo Sorensen is a 78 year old female.The patient presents today for follow-up for multiple medical problems. See list. Her chronic medical problems have been stable. Her blood pressure is under good control. Additionally she complains today of eczema. She has on her arm and her ear. She has previously used an mometasone solution. Her PMR has been stable on the reduction in her dose to 2 and half milligrams of prednisone daily.. Review of Systems Constitutional: Negative. HENT: Negative. Eyes: Negative. Respiratory: Negative. Cardiovascular: Negative. Gastrointestinal: Negative. Endocrine: Negative. Genitourinary: Negative. Musculoskeletal: Negative. Skin: Negative. Allergic/Immunologic: Negative. Neurological: Negative. Hematological: Negative. Psychiatric/Behavioral: Negative. PAST SURGICAL HISTORY Procedure Laterality Date TOTAL ABDOM HYSTERECTOMY N/A 1984 History reviewed. No pertinent past medical history. History reviewed. No pertinent family history. Social History Tobacco Use Smoking status: Never Passive exposure: Never Smokeless tobacco: Never Vaping Use Vaping Use: Never used Substance Use Topics Alcohol use: Not Currently Drug use: Not Currently ALLERGIES Allergen Reactions Clindamycin Swelling Sulfa (Sulfonamide * Unknown MEDICATIONS: cholecalciferol (VITAMIN D-3) 50 mcg (2,000 unit) tablet Take 2,000 Units by mouth once daily. BIOTIN ORAL Take 1 tablet by mouth once daily. OTC MULTIVITAMIN ORAL Take 1 tablet by mouth once daily. dilTIAZem CR (TIADYLT ER) 180 mg 24 hr capsule Take 1 capsule by mouth once daily. predniSONE (DELTASONE) 1 mg tablet Take 2 tablets by mouth once daily. Mometasone 0.1 % solution Apply to affected area once daily. Allergies, past surgical history, family history and past medical history were reviewed per this encounter. Medications were reviewed and verified. Objective BP 128/78 (BP Site: Left Arm, BP Position: Sitting, BP Cuff Size: Large Adult) Pulse 78 Temp 36.9 C (98.4 F) (Temporal) Resp 16 Ht 162.6 cm (5' 4) Wt 69.5 kg (153 lb 2 oz) LMP (LMP Unknown) SpO2 98% BMI 26.28 kg/m Physical Exam Vitals reviewed. Constitutional: Appearance: Normal appearance. HENT: Head: Normocephalic and atraumatic. Nose: Nose normal. Eyes: Extraocular Movements: Extraocular movements intact. Pupils: Pupils are equal, round, and reactive to light. Cardiovascular: Rate and Rhythm: Normal rate and regular rhythm. Pulmonary: Effort: Pulmonary effort is normal. Breath sounds: Normal breath sounds. Abdominal: General: Bowel sounds are normal. Palpations: Abdomen is soft. Musculoskeletal: General: Normal range of motion. Cervical back: Normal range of motion and neck supple. Skin: General: Skin is warm and dry. Capillary Refill: Capillary refill takes less than 2 seconds. Neurological: General: No focal deficit present. Mental Status: She is alert and oriented to person, place, and time. Mental status is at baseline. Psychiatric: Mood and Affect: Mood normal. Behavior: Behavior normal. Assessment and Plan Encounter Diagnosis ICD-10-CM 1. PMR (polymyalgia rheumatica) ([facility]) M35.3 SEDIMENTATION RATE, WESTERGREN C-REACTIVE PROTEIN 2. Ingrown nail L60.0 CONSULT TO PODIATRY 3. Vitamin D deficiency E55.9 VITAMIN D 25 HYDROXY Mometasone solution for eczema. Otherwise continue present medications. Check labs as above. Monitor blood pressure regularly. Exercise as tolerated. Maintain good diet. Follow-up in 6 months. Gely Perez MD * Rachel Wang LPN - 12/17/2023 10:55 AM EDT Patient in the office today for a 3 month exam. LUIS: 09/10/2023 Medicare Wellness Exam: Continue current medications. Check labs as above. Mammogram order placed. Check sed rate. Reduce dose of prednisone to 2-1/2 mg if sed rate is normal. Stay on2-1/2 mg for 1 to 3 months based upon results of reduction in medication. Follow-up in 3 months. Patient would like to discuss spine health. She also has pin sized blood spots on BLE after completing her antibiotic for a UTI. Patient also reports random elevated temperatures that last for a day or 2 then resolve without other symptoms. Refill entered. Rachel Wang LPN December 17, 2023 11:11 AM documented in this encounterCommunity [facility]06-[facility]-2024 NoteHNO ID: [id number] Author: RACHEL WANG LPN Service: ? Author Type: LICENSED NURSE Type: Progress Notes Filed: 12/17/2023 11:33 Note Text: Patient in the office today for a 3 month exam. LUIS: 09/10/2023 Medicare Wellness Exam: Continue current medications. Check labs as above. Mammogram order placed. Check sed rate. Reduce dose of prednisone to 2-1/2 mg if sed rate is normal. Stay on 2-1/2 mg for 1 to 3 months based upon results of reduction in medication. Follow-up in 3 months. Patient would like to discuss spine health. She also has pin sized blood spots on BLE after completing her antibiotic for a UTI. Patient also reports random elevated temperatures that last for a day or 2 then resolve without other symptoms. Refill entered. Rachel Wang LPN December 17, 2023 11:11 [facility]05-17-2024 History of Present illness Narrative* Heather Thorne APRN.ANALYTICAL MANAGER - 11/30/2023 8:56 AM EDT Bobo Sorensen is a 78 year old female who presents with Urinary Problem (Pain and frequency /Patient is unsure of when this started //Patient does seem confused to this nurse and also does look unsteady on her feet /) 78-year-old female presents today with pain and frequency with urination for a couple of days. Patient states last UTI was back in the 70s. Patient denies any fevers or chills no nausea/vomiting or diarrhea or diarrhea with no back pain. Patient states she is drinking lots of fluids. No past medical history on file. ACTIVE PROBLEM LIST Hypertension, Essential Pmr (Polymyalgia Rheumatica) ([facility]) Tremor Current Outpatient Medications Medication Sig Dispense Refill predniSONE (DELTASONE) 2.5 mg tablet Take 1 tablet by mouth once daily. 30 tablet 2 dilTIAZem CR (TIADYLT ER) 180 mg 24 hr capsule Take 1 capsule by mouth once daily. 90 capsule 3 Cephalexin 500 mg tab Take 1 tablet by mouth two times a day for 10 days. 20 tablet 0 No current facility-administered medications for this visit. Social History Tobacco Use Smoking status: Never Passive exposure: Never Smokeless tobacco: Never Vaping Use Vaping Use: Never used Substance Use Topics Alcohol use: Not Currently Drug use: Not Currently Alcohol Use: Not Currently Tobacco Use: Never No family history on file. Review of Systems Genitourinary: Positive for dysuria, frequency and urgency. Negative for flank pain and hematuria. All other systems reviewed and are negative. BP 168/74 Pulse 77 Temp (Src) 97.5 (Temporal) Resp 17 SpO2 97% Physical Exam Vitals and nursing note reviewed. Constitutional: General: She is not in acute distress. Appearance: Normal appearance. She is normal weight. She is not ill-appearing, toxic-appearing or diaphoretic. HENT: Head: Normocephalic. Nose: Nose normal. No congestion or rhinorrhea. Mouth/Throat: Mouth: Mucous membranes are moist. Pharynx: Oropharynx is clear. No oropharyngeal exudate or posterior oropharyngeal erythema. Cardiovascular: Rate and Rhythm: Normal rate and regular rhythm. Pulses: Normal pulses. Heart sounds: Normal heart sounds. Pulmonary: Effort: Pulmonary effort is normal. No respiratory distress. Breath sounds: Normal breath sounds. No stridor. No wheezing, rhonchi or rales. Chest: Chest wall: No tenderness. Abdominal: Tenderness: There is no right CVA tenderness or left CVA tenderness. Musculoskeletal: Cervical back: Normal range of motion. No rigidity or tenderness. Lymphadenopathy: Cervical: No cervical adenopathy. Skin: General: Skin is warm and dry. Capillary Refill: Capillary refill takes less than 2 seconds. Neurological: Mental Status: She is alert. ASSESSMENT/PLAN: 1. Acute Cystitis N30.01 - UA positive for ken esterase/hematuria - Send urine for culture - Patient education for prevention given - URINALYSIS, DIPSTICK ONLY - CEPHALEXIN 500 MG TABLET-patient states she has tolerated Keflex in the past. - URINE CULTURE If worsening of condition shortness or breath, fever/chill please go to ER for evaluation. Heather Thorne APRN.JUSTIN This note was partially generated using [employer] voice recognition system, and there may be some incorrect words, spellings, and punctuation that were not noted in checking the note before saving. documented in this [facility]05-17-2024 Instructions* Patient Instructions* Heather Thorne APRN.CNP - 11/30/2023 8:48 AM EDT If any worsening of symptoms fever, chills, unable to urinate please go to the emergency room. documented in this encounterCommunity [facility]03-[facility]-2024 Miscellaneous Notes* Telephone Encounter - Chirag Whittaker LPN - 09/19/2023 3:05 PM EST Patient notified of information, verbalized understanding. No questions, comments, or concerns at this time. Chirag Whittaker LPN September 19, 2023 3:05 PM documented in this encounterCommunity [facility] Center02-29-2024 Miscellaneous Notes* Telephone Encounter - Chirag Whittaker LPN - 09/13/2023 4:32 PM EST Patient notified of result information on My Chart. Notification will be sent to this nurse if message has not been read within 2 days. Patient will be contacted by another form of communication if notification of not reading My Chart message is received. Chirag Whittaker LPN September 13, 2023 4:35 PM * Telephone Encounter - Chirag Whittaker LPN - 09/13/2023 4:32 PM EST ----- Message from Gely Perez MD sent at 09/13/2023 3:19 PM EST ----- Vitamin D is low. Begin vitamin D 2000 units daily. documented in this encounterCommunity [facility] Center11-06-2023 History of Present illness Narrative* Gely Perez MD - 05/21/2023 10:25 AM EST This note was created using [employer]. Subjective Bobo Sorensen is a 78 year old female.Patient is in office for follow up for chronic medical conditions. Patient states she is needing a Event Planner. Patient states that she was not contacted by Event Planner that referral was sent to. Patient states she has been stable, and is requesting to be seen in our office and not see a Event Planner for PMR. Her blood pressure remains under good control on her current regimen. Review of Systems Constitutional: Negative. HENT: Negative. Eyes: Negative. Respiratory: Negative. Cardiovascular: Negative. Gastrointestinal: Negative. Endocrine: Negative. Genitourinary: Negative. Musculoskeletal: Negative. Skin: Negative. Allergic/Immunologic: Negative. Neurological: Negative. Hematological: Negative. Psychiatric/Behavioral: Negative. Objective BP 138/74 (BP Site: Left Arm, BP Position: Sitting, BP Cuff Size: Regular Adult) Pulse 70 Temp 36.1 C (97 F) (Temporal Artery) Resp 18 Ht 162.6 cm (5' 4) Wt 68.7 kg (151 lb 6.4 oz) SpO2 97% BMI 25.99 kg/m Physical Exam Vitals reviewed. Constitutional: Appearance: Normal appearance. HENT: Head: Normocephalic and atraumatic. Nose: Nose normal. Eyes: Extraocular Movements: Extraocular movements intact. Pupils: Pupils are equal, round, and reactive to light. Cardiovascular: Rate and Rhythm: Normal rate and regular rhythm. Pulmonary: Effort: Pulmonary effort is normal. Breath sounds: Normal breath sounds. Abdominal: General: Bowel sounds are normal. Palpations: Abdomen is soft. Musculoskeletal: General: Normal range of motion. Cervical back: Normal range of motion and neck supple. Skin: General: Skin is warm and dry. Capillary Refill: Capillary refill takes less than 2 seconds. Neurological: General: No focal deficit present. Mental Status: She is alert and oriented to person, place, and time. Mental status is at baseline. Motor: Tremor present. Psychiatric: Mood and Affect: Mood normal. Behavior: Behavior normal. Assessment and Plan Encounter Diagnosis ICD-10-CM 1. PMR (polymyalgia rheumatica) ([facility]) M35.3 SED RATE WESTERGREN 2. Hypertension, essential I10 3. Tremor R25.1 Continue present medications. Check sed rate. She has mild resting tremor. In her left hand only. Continue to monitor. Follow-up in 6 months. Gely Perez MD * Chirag Whittaker LPN - 05/21/2023 10:02 AM EST Patient is in office for follow up for chronic medical conditions. Patient states she is needing a Event Planner. Patient states that she was not contacted by Event Planner that referral was sent to. Patient states she has been stable, and is requesting to be seen in our office and not see a Event Planner for PMR. Chirag Whittaker LPN May 21, 2023 10:08 AM documented in this encounterCommunity [facility] Medical Center08-29-2023 Miscellaneous Notes* Telephone Encounter - Chirag Whittaker LPN - 03/13/2023 12:40 PM EDT Letter has been sent to inform them that referral has been sent to: [facility] [address] [place] [address] Fax confirmation received Chirag Whittaker LPN March 13, 2023 12:42 PM documented in this encounterE[facility] noteNo assessment information availableWCleveland Clinic [facility] Work Phone: Evaluation note* Diagnosis PMR (polymyalgia rheumatica) (HCC)- Primary Polymyalgia rheumatica Hypertension, essential Unspecified essential hypertension Tremor Abnormal involuntary movements documented in this encounter [facility] note* Diagnosis Acute cystitis with hematuria- Primary Acute cystitis [facility] Diagnosis PMR (polymyalgia rheumatica) (HCC)- Primary Polymyalgia rheumatica Ingrown nail Ingrowing nail Vitamin D deficiency Unspecified vitamin D deficiency documented in this encounter [facility] note* Diagnosis PMR (polymyalgia rheumatica) (HCC)- Primary Polymyalgia rheumatica Hypertension, essential Unspecified essential hypertension documented in this encounter [facility] note* Diagnosis Encounter for counseling regarding advance directives- Primary Screening for depression Encounter for screening examination for other mental health and behavioral disorders Vitamin D deficiency Unspecified vitamin D deficiency Lipid screening Screening for lipoid disorders Screening for deficiency anemia Screening for other and unspecified deficiency anemia Wellness examination Hypertension, essential Unspecified essential hypertension PMR (polymyalgia rheumatica) (HCC) Polymyalgia rheumatica Thyromegaly Goiter, unspecified Bilateral leg edema Edema Medicare annual wellness visit, subsequent Routine general medical examination at a health care facility documented in this encounter [facility] note* Diagnosis PMR (polymyalgia rheumatica) (HCC)- Primary Polymyalgia rheumatica documented in this encounter [facility] note* Diagnosis PMR (polymyalgia rheumatica) (HCC)- Primary Polymyalgia rheumatica Adverse effect of glucocorticoids and synthetic analogues, initial encounter documented in this encounter [facility] note* Diagnosis PMR (polymyalgia rheumatica) (HCC)- Primary Polymyalgia rheumatica Osteoporosis without current pathological fracture, unspecified osteoporosis type documented in this encounter [facility] note* Diagnosis PMR (polymyalgia rheumatica) (HCC) Polymyalgia rheumatica Osteoporosis without current pathological fracture, unspecified osteoporosis type documented in this encounter [facility] note* Diagnosis Onset Date Resolution Status Admit Date Neurologic abnormality acute Au 2024 3:54pm HTN (hypertension) chronic March 02, 2025 3:54pm [facility] Work Phone: History and physical note Author Evelyn Zepeda [facility] Note Date/Time March 02, 2025 4: 02pm [facility] Medical Records Department [address] [place] [address] H&P Exam - Hospitalist 03/02/25 1554 MR#: [id number] Acct: [id number] Name: BOBO SORENSEN Rep #:[id number] : 1945 79 From: Evelyn Zepeda MD PCP: Dr. Gely Perez MD Status:ADM ESA Location: [place] [address] HPI - General General Date of Admission: 03/02/25 Date of Service: 03/02/25 Chief Complaint: Unsteadiness HPI Narrative BOBO SORESNEN, is a 79-year-old female with a history of migraines, PMR, hypertension presented [facility] ED 03/02/2025 for vertiginous symptoms that she woke up this a.m. In the ED temp 97.6, heart rate of 72 and a blood pressure of 188/64, respiratory rate 18 and pulse ox 94% on room air. CBCwith white blood cell count 6.4 hemoglobin 13.8, BMP with bicarb 20.5, anion gapwithin normal limits of our assay at 15, BUN [address] of the brain with chronic microvascular changes. CTA head and neck demonstrated sinusitis but no LVO. Neuroexam normal except when patient got up she was very off balance and could not walk without help, hospitalist contacted for admissionfor CVA rule out. Patient evaluated bedside. She reports she went to bed last night and woke up feeling off balance, this morning she felt like maybe it changed a little bit when she would move her head but that is gone away and now its only when she is up moving around, no changes in vision or headache, feels like her head is more foggy and underwater and that she is off balance more so than the room spinning, no lightheadedness. 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 Denies any numbness, weakness, tingling, no other new or acute complaints [facility] Medical History (Updated 03/02/25 @ 16:[address] Evelyn Zepeda MD) Cataracts, bilateral HTN (hypertension) Migraines PMR (polymyalgia rheumatica) Retina disorder Home Medications ?Medication ?Instructions ?Recorded ?Last Taken ?Type diltiazem HCl 180 mg capsule,24 180 mg PO QHS 03/02/25 Unknown History hr,extended release (Tiadylt ER) prednisone 1 mg tablet 1 mg PO DAILY 03/02/25 Unkno wn History Allergy/AdvReac Type Severity Reaction Status Date / Time clindamycin Allergy Severe Swelling Verified 03/02/25 11:41 Beta-Blockers AdvReac Intermediate Chest Verified 03/02/25 11:41 (Beta-Adrenergic Bloc tightness Sulfa (Sulfonamide AdvReac Mild Other Verified 03/02/25 11:41 Antibiotics) Surgical History (Updated 03/02/25 @ 11:59 by Lori Rosenthal) History of cataract surgery Social History Smoking Status: Never smoker ROS ROS Narrative General: Denies fever/chills HENT: Denies headache, denies stuffy nose, denies sore throat EYES: Denies changes in vision Resp: Denies cough, denies shortness of breath Cardiac: Denies chest pain GI: Denies abdominal pain, denies changes in bowel, denies nausea/vomiting : Denies changes in urination Extremity: Denies swelling MSK: Denies weakness Neuro: Denies any numbness/tingling, feels off balance Heme: Denies any bleeding or bruising Skin: Denies rashes Psychiatric: No complaints voiced Vital Signs Vital Signs Vital Signs: 03/02/25 11:42 03/02/25 13:40 Temperature 97.6 F L Temperature Source Oral Pulse Rate 72 89 Respiratory Rate 18 17 Blood Pressure 188/64 H 181/77 H Blood Pressure Mean 105 111 Pulse Ox 94 96 Oxygen Delivery Method Room Air Room Air Physical Exam Narrative General: Alert, oriented, no apparent distress HEENT: Atraumatic, normocephalic Eyes: Anicteric, normal conjunctiva, extraocular movements intact, pupils equal Neck: Supple Respiratory: Clear to auscultation bilaterally, normal respiratory effort Cardiovascular: Regular rate and rhythm GI: Soft, nontender, nondistended Extremities: No edema Musculoskeletal: Strength 5 out of 5 in right upper extremity, 5 out of 5 left upper extremity, 5 out of 5 right lower extremity, 5 out of 5 left lower extremity Neuro: No overt focal neurological deficits, cranial nerves II through XII intact, [id number] without significant difficulty bilaterally Skin: No rashes appreciated Psych: Cooperative Results Lab / Micro Data 03/02/25 12:06 03/02/25 12:06 Labs: Laboratory Results - last 24 hr 03/02/25 12:06: WBC 6.4, RBC 4.27, Hgb 13.8, Hct 41.1, MCV 96.3, MCH 32.3 H, MCHC 33.6, RDW Std Deviation 45.5 H, RDW Coeff of Katelyn 12.7, Plt Count 281, MPV 10.4, Immature Gran % (Auto) 0.000, Neut % (Auto) 50.0, Lymph % (Auto) 34.1, [place] % (Auto) 10.4 H, Eos % (Auto) 4.7, Baso % (Auto) 0.8, Absolute Neuts (auto) 3.2, Absolute Lymphs (auto) 2.17, Nucleated RBC % 0, Sodium 142, Potassium 3.5, Chloride 106, Carbon Dioxide 20.5 L, Anion Gap 15, BUN 22 H, Creatinine 0.64 L, Est GFR (MDRD) Non-Af 89, BUN/Creatinine Ratio 34.3 H, Glucose 94, Calcium 9.7 Imaging Radiology Impression Brain CT 03/02/25 13:02 IMPRESSION: 1. No evidence of intracranial hemorrhage or acute ischemia. 2. Changes of chronic microvascular ischemia and volume loss. Reading Location: [id number] Head/Neck CTA 03/02/25 13:02 IMPRESSION: No vascular abnormality is seen. Sinusitis. Reading Location: [id number] Assessment & Plan Assessment/Plan (1) Neurologic abnormality: (2) HTN (hypertension): PLAN: Plan # Feeling of being off balance and like her head is underwater -Hospitalist contacted to admit for posterior stroke rule out -Admit to tele -CT head w/ no acute changes -CTA head and neck with no LVO -MRI ordered -NIH q4hr -asa, statin -Echo -PT/OT/Speech eval -Teleneuro consult ordered -Hold BP medications to allow for permissive hypertension for 24 hours unless SBP greater than 220 or DBP greater than 120, will resume patient's home diltiazem tonight as this will be over 24 hours since she has been fairly hypertensive # PMR - Continue home 1 mg prednisone # History of hypertension - Management as above # History of ocular migraines - Reports she gets aura with ocular migraine however does not have the headache that comes after - Now following with neurology through the [facility] - Denies any headache or any visual changes or similar symptoms today - Reports she has had 12 since August but again no symptoms similar to her presenting complete #DVT ppx: SCDs Evelyn Zepeda MD Charges/Coding Visit Charges Inpatient E&M: 09420 Init Hosp L2 03/02/25 1602 <Electronically signed by Evelyn Zepeda MD> Cosigner Signature (if applicable): CC: Dr. Evelyn Zepeda MD; Dr. Gely Perez MD~ Signed [facility] Work Phone: Repprm for referral (narrative)No reason for referral information availableWCleveland Clinic Children[facility] Work Phone: Reason for visit Narrative* Diagnostic Procedure Only (Routine) - Closed Specialty Diagnoses / Procedures Referred By Contac t Referred To Contact [facility] Diagnoses Giant cell arteritis (HCC) PMR (polymyalgia rheumatica) (HCC) Osteoporosis without current pathological fracture, unspecified osteoporosis type Procedures US TEMPORAL ARTERY BILATERAL DUPLEX SCAN EXTRACRANIAL ART COMPL BI STUDY Ginny Nrei MD [address] [place] [address] Phone: tel: fax: [place] [address] Referral ID Status Reason Start Date Expiration Date V isits Requested Visits Authorized [id number] Closed Auto-Generate d Referral 12/31/2024 01/30/2026 1 1 [facility] Chief Complaint and Reason for Visit Chief Complaint UTI Chief Complaint Admit Date CVA R/O March 02, 2025 3: 54pm Reason for Visit Admit Date Neurologic abnormality March 02, 2025 3:54pm HTN (hypertension) March 02, 2025 3: 54pm Advance Directives Advance Directive Response Recorded Date/ Time Living Will No February 02, 2023 8:31am Power of Head Of Research [employer] Insights No February 02 8:31am Advance Directive Response Recorded Date/ Time Do you have a Healthcare Power of Head Of Research [employer] Ins[employer]? No March 02, 2025 12:12pm Summary Purpose Family History No Family History Records FoundNo Family History Records FoundNo Family History Records Found Reason for Referral Specialty Diagnoses / Procedures Referred By Contac t Referred To Contact Podiatry Diagnoses Ingrown nail Procedures CONSULT TO PODIATRY OFFICE/OUTPATIENT [facility] 60 MINUTES Gely Perez MD [address] [place] [address] Referral ID Status Reason Start Date Expiration Date Visits Requested Visits Authorized [id number] Authorized PCP Requested Referral 12/17/2023 12/16/2024 1 1 Additional Source Comments Care Teams (unrecognized sec tion and content) Team Status: Active Member Role Status Dates No Primary Care Physician Primary Care Provider Active Team Status: Inactive Member Role Status Dates Dr. Heladio Parada , Emergency Provider Active No Primary Care Physician Primary Care Provider Active Medical/Surgery Registered Nurse Relationship Specialty Start Date End Date Gely Perez MD [address] [place] [id number] PCP - General Family Medicine 03/06/23 Medical/Surgery Registered Nurse Relationship Specialty [place] [address] [place] [address] PCP - General Family Medicine 03/06/23 Medical/Surgery Registered Nurse Relationship Specialty Start Date End Date Gely Perez MD [address] [place] [address] PCP - General Family Medicine 03/06/23 Medical/Surgery Registered Nurse Relationship Specialty Start Date End Date Gely Perez MD [address] [place] [address] PCP - General Family Medicine 03/06/23 Medical/Surgery Registered Nurse Relationship Specialty Start Date End Date Gely Perez MD [address] [place] [address] PCP - General Family Medicine 03/06/23 Medical/Surgery Registered Nurse Relationship Specialty Start Date End Date Gely Perez MD [address] [place] [address] PCP - General Family Medicine 03/06/23 Medical/Surgery Registered Nurse Relationship Specialty [place] [address] [place] [address] PCP - General Family Medicine 03/06/23 Medical/Surgery Registered Nurse Relationship Specialty [place] [address] [place] [address] PCP - General Family Medicine 03/06/23 Medical/Surgery Registered Nurse Relationship Specialty Start Date End Date Gely Perez MD [address] [place] [address] PCP - General Family Medicine 03/06/23 Medical/Surgery Registered Nurse Relationship Specialty Start Date End Date Gely Perez MD [address] [place] [address] PCP - General Family Medicine 03/06/23 Medical/Surgery Registered Nurse Relationship Specialty Start Date End Date Gely Perez MD [address] [place] [address] PCP - General Family Medicine 03/06/23 Medical/Surgery Registered Nurse Relationship Specialty Start Date End Date Gely Perez MD [address] [place] [address] PCP - General Family Medicine 03/06/23 Medical/Surgery Registered Nurse Relationship Specialty Start Date End Date Gely Perez MD [address] [place] [address] PCP - General Family Medicine 03/06/23 Medical/Surgery Registered Nurse Relationship Specialty Start Date End Date Gely Perez MD [address] [place] [address] PCP - General Family Medicine 03/06/23 Medical/Surgery Registered Nurse Relationship Specialty Start Date End Date Gely Perez MD [address] [place] [address] PCP - General Family Medicine 03/06/23 Team Status: Active Member Role/Relationship Status Dates Dr. Gely Perez MD Primary Care Provider Active Team Status: Active Member Role/Relationship Status Dates Dr. Jennifer Alonso MD Emergency Provider Active S tart: March 02, 2025 Dr. Gely Perez MD Primary Care Provider Active Start: March 02, 2025 Dr. Evelyn Zepeda MD Admit Provider Active Star t: March 02, 2025 Dr. Evelyn Zepeda MD Attending Provider Active Start: March 02, 2025 Dr. Evelyn Zepeda MD Other Provider Active Star t: March 02, 2025 Goals (unrecognized section and content) Goals may be documented in a n alternate sectionGoals may be documented in an alternate section INFORMATION SOURCE (unrecogn ized section and content) DATE CREATED AUTHOR 02/03/2023 [facility] DATE CREATED AUTHOR AUTHOR'S ORGANIZ ATION 12/10/2024 [facility] nt DATE CREATED AUTHOR AUTHOR'S ORGANIZ ATION 01/12/2025 [facility] Source Comments (unrecognize d section and content) In the event this informatio n is protected by the Federal Confidentiality of Alcohol and Drug Abuse Patient Records regulations: The Federal rules restrict any use of the information to criminally investigate or prosecute any alcohol or drug abuse patient.[facility] the event this information is protected by the Federal Confidentiality of Alcohol and Drug Abuse Patient Records regulations: The Federal rules restrict any use of the information to criminally investigate or prosecute any alcohol or drug abuse patient.[facility] the event this information is protected by the Federal Confidentiality of Alcohol and Drug Abuse Patient Records regulations: The Federal rules restrict any use of the information to criminally investigate or prosecute any alcohol or drug abuse patient.[facility] Center[facility] the event this information is protected by the Federal Confidentiality of Alcohol and Drug Abuse Patient Records regulations: The Federal rules restrict any use of the information to criminally investigate or prosecute any alcohol or drug abuse patient.[facility] the event this information is protected by the Federal Confidentiality of Alcohol and Drug Abuse Patient Records regulations: The Federal rules restrict any use of the information to criminally investigate or prosecute any alcohol or drug abuse patient.[facility] Center[facility] the event this information is protected by the Federal Confidentiality of Alcohol and Drug Abuse Patient Records regulations: The Federal rules restrict any use of the information to criminally investigate or prosecute any alcohol or drug abuse patient.[facility] the event this information is protected by the Federal Confidentiality of Alcohol and Drug Abuse Patient Records regulations: The Federal rules restrict any use of the information to criminally investigate or prosecute any alcohol or drug abuse patient.[facility] the event this information is protected by the Federal Confidentiality of Alcohol and Drug Abuse Patient Records regulations: The Federal rules restrict any use of the information to criminally investigate or prosecute any alcohol or drug abuse patient.[facility] Center[facility] the event this information is protected by the Federal Confidentiality of Alcohol and Drug Abuse Patient Records regulations: The Federal rules restrict any use of the information to criminally investigate or prosecute any alcohol or drug abuse patient.[facility] Center[facility] the event this information is protected by the Federal Confidentiality of Alcohol and Drug Abuse Patient Records regulations: The Federal rules restrict any use of the information to criminally investigate or prosecute any alcohol or drug abuse patient.[facility] Center[facility] the event this information is protected by the Federal Confidentiality of Alcohol and Drug Abuse Patient Records regulations: The Federal rules restrict any use of the information to criminally investigate or prosecute any alcohol or drug abuse patient.[facility] Center[facility] the event this information is protected by the Federal Confidentiality of Alcohol and Drug Abuse Patient Records regulations: The Federal rules restrict any use of the information to criminally investigate or prosecute any alcohol or drug abuse patient.[facility] Center[facility] the event this information is protected by the Federal Confidentiality of Alcohol and Drug Abuse Patient Records regulations: The Federal rules restrict any use of the information to criminally investigate or prosecute any alcohol or drug abuse patient.[facility] Center[facility] the event this information is protected by the Federal Confidentiality of Alcohol and Drug Abuse Patient Records regulations: The Federal rules restrict any use of the information to criminally investigate or prosecute any alcohol or drug abuse patient.[facility] Center[facility] the event this information is protected by the Federal Confidentiality of Alcohol and Drug Abuse Patient Records regulations: The Federal rules restrict any use of the information to criminally investigate or prosecute any alcohol or drug abuse patient.[facility] Center[facility] the event this information is protected by the Federal Confidentiality of Alcohol and Drug Abuse Patient Records regulations: The Federal rules restrict any use of the information to criminally investigate or prosecute any alcohol or drug abuse patient.[facility] Center[facility] the event this information is protected by the Federal Confidentiality of Alcohol and Drug Abuse Patient Records regulations: The Federal rules restrict any use of the information to criminally investigate or prosecute any alcohol or drug abuse patient.[facility] CenterIn the event this information is protected by the Federal Confidentiality of Alcohol and Drug Abuse Patient Records regulations: The Federal rules restrict any use of the information to criminally investigate or prosecute any alcohol or drug abuse patient.[facility] CenterIn the event this information is protected by the Federal Confidentiality of Alcohol and Drug Abuse Patient Records regulations: The Federal rules restrict any use of the information to criminally investigate or prosecute any alcohol or drug abuse patient.[facility] Reason for Visit (unrecogniz ed section and content) Reason Comments Referral Information Reason Comments Follow Up Reason Comments Results Reason Comments Urinary Problem Pain and frequency P atient is unsure of when this started Patient does seem confused to this nurse and also does look unsteady on her feet Reason Comments 3 Month Exam Reason Comments Podiatry referral faxed to Dr Aggarwal Reason Comments Appointment Reason Comments 6 Month Exam Reason Comments Medicare Wellness Exam Reason Comments Refill Request Reason Comments Established Patient Reason Comments PMR FOR RECORDS PERTAINING TO PATIENTS WHO ARE OR HAVE BEEN ENROLLED IN A CHEMICAL DEPENDENCY/SUBSTANCEABUSE PROGRAM, SOME INFORMATION MAY BE OMITTED. This clinical summary was aggregated from multiple sources. Caution should be exercised in using it in the provision of clinical care. This summary normalizes information from multiple sources, and as a consequence, information in this document may materially change the coding, format and clinical context of patient data. In addition, data may be omitted in some cases. CLINICAL DECISIONS SHOULD BE BASED ON THE PRIMARY CLINICAL RECORDS. [employer] [facility]. provides no warranty or guarantee of the accuracy or completeness of information in this document.
[2025-03-03 04:00] VITALS: BP 154/72; PULSE 62; RESP 16; TEMP 35.7; O2SAT 94
[2025-03-03 05:38] LABS: Hematocrit 37.3 % (37-47); Hemoglobin 12.4 g/dL (12.0-15.0); Immature Granulocytes Count 0.020 X10^3/uL (0.0-0.0); Mean Corp Hgb Conc 33.2 g/dL (32-36); Mean Corpuscular Volume 96.4 fL (81-99); Mean Platelet Vol. 10.0 fl (6.2-12.0); NRBC Flagged by Analyzer 0 % (0-5); Platelet Count 248 K/mm3 (150-450); RBC Distribution Width CV 12.8 % (11.6-14.6); RBC Distribution Width SD 45.4 fl (35.1-43.9); Red Blood Count 3.87 M/mm3 (4.2-5.4); White Blood Count 5.8 K/mm3 (4.4-11.0)
[2025-03-03 06:25] LABS: Anion Gap 13 (5-15); BUN 15 mg/dL (4-19); BUN/Creat Ratio 24.8 RATIO (10-20); Calcium,Total 8.9 mg/dL (7.6-11.0); Carbon Dioxide 20.8 mmol/L (21.0-32.0); Chloride 109 mmol/L (98-108); Cholesterol 216 mg/dL (<=200); Estimated Creatinine Clearance 52.61 ml/min (50-250); Glucose 87 mg/dL (70-99); Low Density Lipoprotein Calc. 136 mg/dL; Potassium 3.6 mmol/L (3.3-5.1); Triglycerides 72 mg/dL; Very Low Density Lipoprotein 14 mg/dL (5-40); cholesterol:hdl ratio screen 3.28
[2025-03-03 08:00] VITALS: BP 158/81; PULSE 69; RESP 16; TEMP 36.8; O2SAT 94
[2025-03-03 10:44] VITALS: BP 172/69
[2025-03-03 12:00] VITALS: BP 150/72; PULSE 74; RESP 18; TEMP 36.6; O2SAT 93
--- NOTE | 2025-03-03 12:53 | NEURO.CONS ---
Assessment and Plan: Neuro Assessment/Plan BOBO SOLORIO is a 79 F with a past medical history of HTN, ocular migraine who presented with dizziness and imbalance being evaluated by Teleneurology for that. Outside the window for lytics. No LVO on CTA Diagnosis: Dizziness, sinusitis Plan: Outside the window for lytics. No LVO on CTA Brain MRI was done. Per my read, I do not see an evidence for acute infarct. Please follow up on the final read Presentation is not suggestive of TIA, there is a concern for diffuse sinusitis on CT. Management per primary team Please target normal BP goal No further stroke workup is recommended I personally attended this patient and spent a total time of 71 minutes evaluating this patient including clinical assessment, review of chart, medical history imaging, and determining appropriate treatment and workup. HPI Consult Data Date of Consult: 03/03/25 HPI Narrative HPI Narrative: BOBO SOLORIO, is a 79 F with a hx of PMR on prednisone, HTN, ocular migraine with LKW on 03/01/25 at 23:00 when she went to bed. She woke up on 03/02 at 09:00 and was feeling dizzy. She said it was not a vertigo as she reported a prior vertigo in the past (no room spinning). She just felt that her head was filled with water with imbalance. No reported fall. No unilateral weakness, numbness, no slurred speech or word finding difficulties. Patient was outside the window for lytics. No LVO on CTA head and neck [facility] Medical History (Updated 03/02/25 @ 16:50 by Afia Crawford) Ocular migraine HTN (hypertension) PMR (polymyalgia rheumatica) Retina disorder Cataracts, bilateral Migraines Home Medications ?Medication ?Instructions ?Recorded ?Last Taken ?Type acetaminophen 500 mg tablet 1,000 mg PO QHS PRN sleep 03/02/25 Unknown History (Tylenol Extra Strength) diltiazem HCl 180 mg capsule,24 180 mg PO QHS 03/02/25 03/01/25 History hr,extended release (Tiadylt ER) prednisone 1 mg tablet 1 mg PO DAILY 03/02/25 03/01/25 History Allergy/AdvReac Type Severity Reaction Status Date / Time clindamycin Allergy Severe Swelling Verified 03/02/25 11:41 Beta-Blockers AdvReac Intermediate Chest Verified 03/02/25 11:41 (Beta-Adrenergic Bloc tightness Sulfa (Sulfonamide AdvReac Mild Other Verified 03/02/25 11:41 Antibiotics) Family History (Updated 03/02/25 @ 16:52 by Afia Crawford) Other CVA (cerebral vascular accident) Surgical History History of cataract surgery Social History Smoking Status: Never smoker Vital Signs Vital Signs Vital Signs: 03/02/25 13:40 03/02/25 15:00 03/02/25 16:09 Temperature 97.6 F L Temperature Source Pulse Rate 89 82 82 Pulse Strength Respiratory Rate 17 17 Respiratory Effort Respiratory Depth Respiratory Pattern Blood Pressure 181/77 H 150/84 H 150/84 H Blood Pressure Mean 111 106 106 Blood Pressure Source Blood Pressure Position Blood Pressure Location Pulse Ox 96 95 95 Oxygen Delivery Method Room Air Room Air 03/02/25 17:00 03/02/25 17:20 03/02/25 18:00 Temperature 98.1 F Temperature Source Temporal Pulse Rate 80 Pulse Strength Respiratory Rate 16 Respiratory Effort Normal Non-Labored Respiratory Depth Normal Respiratory Pattern Normal Blood Pressure 154/96 H Blood Pressure Mean 115 Blood Pressure Source Manual Blood Pressure Position Semi-Fowlers Blood Pressure Location Right Arm Pulse Ox 99 99 Oxygen Delivery Method Room Air Room Air Room Air 03/02/25 19:45 03/02/25 19:45 03/02/25 19:45 Temperature 97.4 F L Temperature Source Oral Pulse Rate 78 Pulse Strength Normal (2+) Respiratory Rate 16 Respiratory Effort Normal Non-Labored Respiratory Depth Normal Respiratory Pattern Normal Blood Pressure 145/73 H Blood Pressure Mean 97 Blood Pressure Source Monitor Blood Pressure Position Semi-Fowlers Blood Pressure Location Right Forearm Pulse Ox 96 Oxygen Delivery Method Room Air Room Air 03/02/25 23:51 03/03/25 04:00 03/03/25 07:25 Temperature 97.3 F L 96.2 F L Temperature Source Temporal Temporal Pulse Rate 71 62 Pulse Strength Respiratory Rate 16 16 Respiratory Effort Respiratory Depth Respiratory Pattern Blood Pressure 150/69 H 154/72 H Blood Pressure Mean 96 99 Blood Pressure Source Monitor Monitor Blood Pressure Position Supine Supine Blood Pressure Location Right Arm Right Arm Pulse Ox 96 94 Oxygen Delivery Method Room Air Room Air Room Air 03/03/25 08:00 03/03/25 08:00 03/03/25 08:00 Temperature 98.3 F Temperature Source Temporal Pulse Rate 69 Pulse Strength Normal (2+) Respiratory Rate 16 Respiratory Effort Normal Non-Labored Respiratory Depth Normal Respiratory Pattern Normal Blood Pressure 158/81 H Blood Pressure Mean 106 Blood Pressure Source Monitor Blood Pressure Position Semi-Fowlers Blood Pressure Location Right Arm Pulse Ox 94 Oxygen Delivery Method Room Air Room Air 03/03/25 10:44 03/03/25 12:00 Temperature 97.8 F Temperature Source Temporal Pulse Rate 74 Pulse Strength Respiratory Rate 18 Respiratory Effort Respiratory Depth Respiratory Pattern Blood Pressure 172/69 H 150/72 H Blood Pressure Mean 103 98 Blood Pressure Source Monitor Monitor Blood Pressure Position Semi-Fowlers Semi-Fowlers Blood Pressure Location Right Arm Right Arm Pulse Ox 93 Oxygen Delivery Method Room Air Weight Weight: 69 kg Body Mass Index (BMI) 26.1 Physical Exam Narrative Patient is awake and alert, follows commands, oriented x3, no drifts in the uppers or lowers, no ataxia. Sensation intact to LT Lab / Micro Data 03/03/25 04:55 03/03/25 04:55 Labs: Laboratory Results - last 24 hr 03/02/25 12:06: WBC 6.4, RBC 4.27, Hgb 13.8, Hct 41.1, MCV 96.3, MCH 32.3 H, MCHC 33.6, RDW Std Deviation 45.5 H, RDW Coeff of Katelyn 12.7, Plt Count 281, MPV 10.4, Immature Gran % (Auto) 0.000, Neut % (Auto) 50.0, Lymph % (Auto) 34.1, Hockley % (Auto) 10.4 H, Eos % (Auto) 4.7, Baso % (Auto) 0.8, Absolute Neuts (auto) 3.2, Absolute Lymphs (auto) 2.17, Nucleated RBC % 0, Sodium 142, Potassium 3.5, Chloride 106, Carbon Dioxide 20.5 L, Anion Gap 15, BUN 22 H, Creatinine 0.64 L, Est GFR (MDRD) Non-Af 89, BUN/Creatinine Ratio 34.3 H, Glucose 94, Calcium 9.7 03/02/25 13:40: Urine Color Yellow, Urine Clarity Clear, Urine pH 7.0, Ur Specific Zircon[place] 1.010, Urine Protein 15 H, Urine Glucose (UA) Normal, Urine Ketones Negative, Urine Occult Blood Negative, Urine Nitrite Negative, Urine Bilirubin Negative, Urine Urobilinogen Normal, Ur Leukocyte Esterase Negative, Urine RBC 0 SEEN, Urine WBC 0-5 SEEN, Ur Squamous Epith Cells 0-5 SEEN, Ur Transition Epith Cell 0-5 SEEN, Urine Bacteria 0 SEEN, Urine Mucus 0 SEEN 03/03/25 04:55: WBC 5.8, RBC 3.87 L, Hgb 12.4, Hct 37.3, MCV 96.4, MCH 32.0, MCHC 33.2, RDW Std Deviation 45.4 H, RDW Coeff of Katelyn 12.8, Plt Count 248, MPV 10.0, Immature Gran % (Auto) 0.300, Neut % (Auto) 45.8 L, Lymph % (Auto) 32.1, Hockley % (Auto) 13.5 H, Eos % (Auto) 7.3 H, Baso % (Auto) 1.0, Absolute Neuts (auto) 2.6, Absolute Lymphs (auto) 1.85, Nucleated RBC % 0, Sodium 142, Potassium 3.6, Chloride 109 H, Carbon Dioxide 20.8 L, Anion Gap 13, BUN 15, Creatinine 0.61 L, Estim Creat Clear Calc 52.61, Est GFR (MDRD) Non-Af 90, BUN/Creatinine Ratio 24.8 H, Glucose 87, Calcium 8.9, Triglycerides 72, Cholesterol 216 H, LDL Cholesterol, Calc 136, VLDL Cholesterol 14, HDL Cholesterol 66, Cholesterol/HDL Ratio 3.28, TSH 5.100 H Imaging Radiology Impression Brain CT 03/02/25 13:02 IMPRESSION: 1. No evidence of intracranial hemorrhage or acute ischemia. 2. Changes of chronic microvascular ischemia and volume loss. Reading Location: [id number] Head/Neck CTA 03/02/25 13:02 IMPRESSION: No vascular abnormality is seen. Sinusitis. Reading Location: [id number] Echocardiogram 03/02/25 15:58 Interpretation Summary The estimated ejection fraction is 55 %. Mild (1+) aortic valve insufficiency. Moderate assymetric septal hypertrophy. No regional wall motion abnormalities noted. Normal systolic function. Right ventricular systolic pressure estimated to be 20 mmHg. This was essentially a normal study. Ordering Physician: Evelyn Zepeda Performed By: Miguel Pate, LUIS FELIPE Brain MRI 03/03/25 15:58 IMPRESSION: Bilateral maxillary, ethmoid, sphenoid, and frontal sinus disease is noted. There is abnormal increased T2 and FLAIR signal in the deep white matter on the right and left with moderate white matter disease, likely chronic ischemic changes. There is no visible acute diffusion abnormality. Reading Location: [facility] Active Medications Active Medications Active Medications: Current Medications Generic Name Dose Route Start Last Admin Trade Name Freq PRN Reason Stop Dose Admin Acetaminophen 650 mg 03/02/25 16:42 03/02/25 23:47 Acetaminophen 325 Mg Tablet PO 650 mg Q6H PRN PRN Administration Pain 1-10 Or Fever >100.7 Albuterol Sulfate 2.5 mg 03/02/25 16:42 Albuterol 2.5 Mg/3 Ml Vial.Neb. INHALATION Q2H PRN PRN SOB &/OR WHEEZING Aspirin 81 mg 03/03/25 08:00 03/03/25 08:21 Aspirin 81 Mg Tab.Chew PO 81 mg BREAKFAST BART Administration Atorvastatin Calcium 40 mg 03/02/25 22:00 03/02/25 20:20 Atorvastatin Calcium 40 Mg Tablet PO 40 mg QHS BART Administration Diltiazem HCl 180 mg 03/02/25 22:00 03/02/25 20:20 Diltiazem Cd 180 Mg Capsule PO 180 mg QHS BART Administration Hydralazine HCl 5 mg 03/02/25 16:42 Hydralazine 20 Mg/Ml Vial IV 03/03/25 16:42 Q30M PRN maintain BP parameters with HR <60 Labetalol HCl 10 - 20 mg 03/02/25 16:42 Labetalol 20 Mg/4 Ml Vial IV 03/03/25 16:42 Q10M PRN PRN maintain BP parameters with HR >/=60 Lorazepam 0.5 mg 03/02/25 16:42 03/03/25 10:44 Lorazepam 0.5 Mg Tablet PO 0.5 mg X1 PRN Administration Anxiety with MRI Melatonin 10 mg 03/02/25 16:42 Melatonin 3 Mg Tablet PO QHS PRN PRN INSOMNIA Ondansetron HCl 4 mg 03/02/25 16:42 Ondansetron 4 Mg/2 Ml Vial IV Q8H PRN PRN NAUSEA/VOMITING Prednisone 1 mg 03/02/25 16:42 03/03/25 08:21 Prednisone 1 Mg Tablet PO 1 mg DAILY BART Administration Senna/Docusate Sodium 2 tablet 03/02/25 16:42 Senna/Docusate Sodium 1 Tablet PO BID PRN PRN Constipation Sodium Chloride 10 - 40 ml 03/02/25 16:48 0.9% Saline Lock 10 Ml Syringe IV UD PRN SALINE FLUSH NIHSS NIHSS Nursing Documentation NIHSS Nursing Documentation: NIH Stroke Scale Start: 03/02/25 16:13 Freq: Status: Discharge Protocol: Activity Type Activity Date Activity User E-sign Co-sign Detail Recorded Client Recorded Date Recorded By Document 03/02/25 16:15 [id number] 03/02/25 16:16 03/02/25 16:15 NIH Stroke Scale [NIHSS] A score of 0 is normal or asymptomatic . Total possible score is 42. Inpatient: RN or Physician to activate a stroke alert for onset of new stroke symptoms or with NIHSS increase >/= 3 points. Following change in neurological status, NIHSS will be performed per physician order or more frequently PRN. -1a. Level of Consciousness 0 - Alert; keenly responsive -1b. LOC Questions 0 - Answers BOTH questions correctly -1c. LOC Commands 0 - Performs BOTH tasks correctly -2. Best Gaze 0 - Normal -3. Visual 0 - No visual loss -4. Facial Palsy 0 - Normal symmetrical movements -5a. Left Arm 0 - No drift; arm holds 90 ( or 45) degrees for full 10 seconds -5b. Right Arm 0 - No drift; arm holds 90 ( or 45) degrees for full 10 seconds -6a. Left Leg 0 - No drift; leg holds 30- degree position for full 5 seconds -6b. Right Leg 0 - No drift; leg holds 30- degree position for full 5 seconds -7. Limb Ataxia 0 - Absent -8. Sensory 0 - Normal; no sensory loss -9. Best Language 0 - No aphasia; normal -10. Dysarthria 0 - Normal -11. Extinction and Inattention 0 - No abnormality -Total 0 Query Text:A score of 0 is normal or asymptomatic. Total possible score is 42 . ED: Notify Physician for NIHSS increase by > / = 3 points. Inpatient: RN or Physician to activate a stroke alert for NIHSS increase of > / = 3 points. NIHSS: Ischemic Stroke/TIA Start: 03/02/25 16:42 Text: For PCU Patients: NIH and Neuro Check every 4 Status: Active hours, PRN and with change in RN caregiver. Freq: [id number] Protocol: Activity Type Activity Date Activity User E-sign Co-sign Detail Recorded Client Recorded Date Recorded By Document 03/03/25 12:00 [id number] 03/03/25 12:27 03/03/25 12:00 -1a. Level of Consciousness 0 - Alert; keenly responsive -1b. LOC Questions 0 - Answers BOTH questions correctly -1c. LOC Commands 0 - Performs BOTH tasks correctly -2. Best Gaze 0 - Normal -3. Visual 0 - No visual loss -4. Facial Palsy 0 - Normal symmetrical movements -5a. Left Arm 0 - No drift; arm holds 90 ( or 45) degrees for full 10 seconds -5b. Right Arm 0 - No drift; arm holds 90 ( or 45) degrees for full 10 seconds -6a. Left Leg 0 - No drift; leg holds 30- degree position for full 5 seconds -6b. Right Leg 0 - No drift; leg holds 30- degree position for full 5 seconds -7. Limb Ataxia 0 - Absent -8. Sensory 0 - Normal; no sensory loss -9. Best Language 0 - No aphasia; normal -10. Dysarthria 0 - Normal -11. Extinction and Inattention 0 - No abnormality -Total 0 Query Text:A score of 0 is normal or asymptomatic. Total possible score is 42 . ED: Notify Physician for NIHSS increase by > / = 3 points. Inpatient: RN or Physician to activate a stroke alert for NIHSS increase of > / = 3 points. Coma Scale [Assess] -Eye Opening Spontaneous -Motor Obeys Commands -Verbal Oriented [Total] -Coma Scale Total 15 NIHSS 1a. Level of Consciousness: 0 - Alert; keenly responsive 1b. LOC Questions: 0 - Answers BOTH questions correctly 1c. LOC Commands: 0 - Performs BOTH tasks correctly 2. Best Gaze: 0 - Normal 3. Visual: 0 - No visual loss 4. Facial Palsy: 0 - Normal symmetrical movements 5a. Left Arm: 0 - No drift; arm holds 90 (or 45) degrees for full 10 seconds 5b. Right Arm: 0 - No drift; arm holds 90 (or 45) degrees for full 10 seconds 6a. Left Le - No drift; leg holds 30-degree position for full 5 seconds 6b. Right Le - No drift; leg holds 30-degree position for full 5 seconds 7. Limb Ataxia: 0 - Absent 8. Sensory: 0 - Normal; no sensory loss 9. Best Language: 0 - No aphasia; normal 10. Dysarthria: 0 - Normal 11. Extinction and Inattention: 0 - No abnormality Total: 0
--- NOTE | 2025-03-03 14:32 | DCINST_ITS ---
Discharge Instructions DC O2, CPAP, BIPAP needs Home O2 Discharge instructions: No Dressing / Incision Discharge Activity: Return to Normal Activity Weight Bearing Status: Full weight bearing Follow Up Care Test Results: Test results from this visit will be discussed in further detail at your follow- up appointment, if applicable. Discharge Plan Admission Admit Date/Time: 03/02/25 15:54 Primary Reason for Your Visit: dizziness, sinusitis Attending Provider: Leno Mike Primary Care Provider: Waqar Jones Consulting Providers: David Beverly; Elizabeth Porter; Karissa Upton; Shazia Contreras; Monica Earl; Bryan Ugalde; nAna Truong; Konrad Hernadez; Ramon Fraser; Oswaldo Arredondo; Anisa Gustafson; Darrin Guzman; Ariana Quiroz; Ulises Mednoza; Indigo Perkins; Mason Richardson; Trang Bonner; Manohar Belcher; Marcy Ledezma; Nate Galvin; Evelyn Zepeda Discharge Orders/Prescriptions Prescriptions: New cefdinir 300 mg capsule 300 mg PO BID Qty: 20 0RF Continued diltiazem HCl [Tiadylt ER] 180 mg capsule,extended release 24 hr 180 mg PO QHS prednisone 1 mg tablet 1 mg PO DAILY acetaminophen [Tylenol Extra Strength] 500 mg tablet 1,000 mg PO QHS PRN (Reason: sleep) Referrals / Follow Up: Waqar Jones MD [Primary Care Provider] - Within 1 Month Disposition Disposition (needs filled in before D/C Order can be placed): Home, Self Care
--- NOTE | 2025-03-03 14:35 | DS.PCM_ITS ---
Providers Date of Admission: 03/02/25 Date of Discharge: 03/03/25 Primary Care Physician: Dr. Waqar Jones MD Consultations 03/02/25 16:42 Consult: Tele-Neurology Routine Consulting Provider: [facility] Reason for Consult: Acute Ischemic Stroke/TIA EMERGENT Consult: No MD Notified: Yes Date Notified: 03/02/25 Time Notified: 15:56 Method of Notification: Answering Service Nursing Unit Staff Notify [facility] of Tele-Neurology Consult: Yes Reason For Visit: CVA R/O Diagnosis Discharge Diagnosis (1) Neurologic abnormality: Status: Acute Code(s): R29.818 - Other symptoms and signs involving the nervous system (2) HTN (hypertension): Status: Chronic Code(s): I10 - Essential (primary) hypertension Plan 1. Ataxia-etiology unknown #2 sinusitis #3 essential hypertension Medications at Discharge Home Medications acetaminophen 500 mg tablet (Tylenol Extra Strength) 1,000 mg PO QHS PRN sleep 03/02/25 diltiazem HCl 180 mg capsule,24 hr,extended release (Tiadylt ER) 180 mg PO QHS 03/02/25 prednisone 1 mg tablet 1 mg PO DAILY 03/02/25 cefdinir 300 mg capsule 300 mg PO BID #20 caps 03/03/25 Hospital Course Operations None Procedures 2-D Echocardiogram Summary of Care Provided Minutes Spent on Discharge: 31 Hospital Course: This 79-year-old white female seen in the emergency room at [facility] with complaints of feeling unsteady on her feet, she has a history of vertigo that was remote-approximately 14 years prior, she stated that this episode did not feel similar to the last episode. Patient denied any lightheadedness, headache, or vision changes. There was no speech difficulty, weakness, or numbness in her extremities. Workup in the emergency room included labs which were essentially unremarkable, CT of the brain showed no evidence of intracranial hemorrhage or acute ischemia. CTA of the head and neck showed no vascular abnormality, there was evidence of pansinusitis. Patient was placed in observation status on PCU, she underwent an echocardiogram which was unremarkable, she underwent an MRI of the brain which was also unremarkable for stroke but did show pansinusitis. On 03/03/2025, patient was seen and examined: On examination she appeared in good health and spirits, she does not appear to be in any distress. Vital signs as documented. Skin warm and dry and without overt rashes. Neck without JVD, thyroid appears normal, trachea is midline, neck is supple. Lungs clear, normal air movement was noted. Heart exam notable for regular rhythm, normal sounds and absence of murmurs, rubs or gallops. Abdomen unremarkable and without evidence of organomegaly, masses, or abdominal aortic enlargement, bowel sounds are present in all 4 quadrants, no abdominal tenderness was noted. Extremities nonedematous, no cyanosis was noted, no clubbing was noted. Neuro: Cranial nerves II through XII are grossly intact, no focal motor deficits were noted, sensation to light touch and pinprick is intact, motor exam 5/5 throughout. Psych: Patient is alert and oriented x3, she does not appear anxious or depressed, she does not appear agitated. Patient appeared stable for discharge on 03/03/2025 Weight / BMI Weight Weight: 69 kg Body Mass Index (BMI) 26.1 ABG / Lab / Microbiology Data 03/03/25 04:55 03/03/25 04:55 Laboratory: Laboratory Results - last 24 hr 03/02/25 13:40: Urine Color Yellow, Urine Clarity Clear, Urine pH 7.0, Ur Specific Hext 1.010, Urine Protein 15 H, Urine Glucose (UA) Normal, Urine Ketones Negative, Urine Occult Blood Negative, Urine Nitrite Negative, Urine Bilirubin Negative, Urine Urobilinogen Normal, Ur Leukocyte Esterase Negative, Urine RBC 0 SEEN, Urine WBC 0-5 SEEN, Ur Squamous Epith Cells 0-5 SEEN, Ur Transition Epith Cell 0-5 SEEN, Urine Bacteria 0 SEEN, Urine Mucus 0 SEEN 03/03/25 04:55: WBC 5.8, RBC 3.87 L, Hgb 12.4, Hct 37.3, MCV 96.4, MCH 32.0, MCHC 33.2, RDW Std Deviation 45.4 H, RDW Coeff of Katelyn 12.8, Plt Count 248, MPV 10.0, Immature Gran % (Auto) 0.300, Neut % (Auto) 45.8 L, Lymph % (Auto) 32.1, M renee % (Auto) 13.5 H, Eos % (Auto) 7.3 H, Baso % (Auto) 1.0, Absolute Neuts (auto) 2.6, Absolute Lymphs (auto) 1.85, Nucleated RBC % 0, Sodium 142, Potassium 3.6, Chloride 109 H, Carbon Dioxide 20.8 L, Anion Gap 13, BUN 15, C reatinine 0.61 L, Estim Creat Clear Calc 52.61, Est GFR (MDRD) Non-Af 90, B UN/Creatinine Ratio 24.8 H, Glucose 87, Calcium 8.9, Triglycerides 72, C holesterol 216 H, LDL Cholesterol, Calc 136, VLDL Cholesterol 14, HDL Cholesterol 66, Cholesterol/HDL Ratio 3.28, TSH 5.100 H Radiography Diagnostic Testing: Radiology Impression Echocardiogram 03/02/25 15:58 Interpretation Summary The estimated ejection fraction is 55 %. Mild (1+) aortic valve insufficiency. Moderate assymetric septal hypertrophy. No regional wall motion abnormalities noted. Normal systolic function. Right ventricular systolic pressure estimated to be 20 mmHg. This was essentially a normal study. Ordering Physician: Evelyn Zepeda Performed By: Miguel Pate RCS Brain MRI 03/03/25 15:58 IMPRESSION: Bilateral maxillary, ethmoid, sphenoid, and frontal sinus disease is noted. There is abnormal increased T2 and FLAIR signal in the deep white matter on the right and left with moderate white matter disease, likely chronic ischemic changes. There is no visible acute diffusion abnormality. Reading Location: [facility] Instructions Weight Bearing Status: Full weight bearing DC O2, CPAP, BIPAP Needs Home O2 Discharge instructions: No Meaningful Use Info Meaningful Use Meaningful Use Diagnoses (Choose all that apply): None applicable Discharge Plan Admission Admit Date/Time: 03/02/25 15:54 Primary Reason for Your Visit: dizziness, sinusitis Attending Provider: Leno Mike Primary Care Provider: Waqar Jones Consulting Providers: David Beverly; Elizabeth Porter; Karissa Upton; Shazia Contreras; Monica Earl; Bryan Ugalde; Anna Truong; Konrad Hernadez; Ramon Fraser; Oswaldo Arredondo; Anisa Gustafson; Darrin Guzman; Ariana Quiroz; Ulises Mendoza; Indigo Perkins; Mason Richardson; Trang Bonner; Manohar Belcher; Marcy Ledezma; Nate Galvin; Evelyn Zepeda Discharge Orders/Prescriptions Prescriptions: New cefdinir 300 mg capsule 300 mg PO BID Qty: 20 0RF Continued diltiazem HCl [Tiadylt ER] 180 mg capsule,extended release 24 hr 180 mg PO QHS prednisone 1 mg tablet 1 mg PO DAILY acetaminophen [Tylenol Extra Strength] 500 mg tablet 1,000 mg PO QHS PRN (Reason: sleep) Referrals / Follow Up: Waqar Jones MD [Primary Care Provider] - Within 1 Month Disposition Disposition (needs filled in before D/C Order can be placed): Home, Self Care Charges/Coding Visit Charges Inpatient E&M: 90008 Disch Hosp >30min
--- NOTE | 2025-03-03 15:06 | CASEMGMT ---
Patient has order for discharge. RN CM in to discuss needs at discharge, family at bedside. Patient denies needs or help at discharge. Patient had no further questions or concerns.
--- NOTE | 2025-03-03 15:58 | MRI_ITS ---
EXAM: BRAIN WITHOUT CONTRAST CLINICAL HISTORY: CONCERN FOR POSTERIOR CVA COMPARISON: None. TECHNIQUE: Multiplanar, multisequence MR images of the brain were obtained without gadolinium contrast material. FINDINGS: No intracranial hemorrhage, mass, mass effect, midline shift or pathologic extra- axial fluid collection. No hydrocephalus. There is abnormal increased T2 and FLAIR signal in the deep white matter on the right and left with moderate white matter disease, likely chronic ischemic changes. No areas of restricted diffusion to suggest acute ischemia or infarction, with T2 shine through noted. No gradient signal blooming artifacts are identified. No cerebellar tonsillar ectopia. No sellar/suprasellar signal abnormalities. The ocular globes and intraorbital soft tissues are symmetrically unremarkable. Bilateral maxillary, ethmoid, sphenoid, and frontal sinus disease is noted. MRI/Brain without Contrast IMPRESSION: Bilateral maxillary, ethmoid, sphenoid, and frontal sinus disease is noted. There is abnormal increased T2 and FLAIR signal in the deep white matter on the right and left with moderate white matter disease, likely chronic ischemic changes. There is no visible acute diffusion abnormality. Reading Location: [facility]
[2025-03-03 16:24] VITALS: BP 157/93; PULSE 76; RESP 16; TEMP 37.1; O2SAT 95
== END 2025-03-03 16:40 | disposition home or self-care (01) ==
LOC: ED 15:54 → PCU 15:57
PROVIDERS: Admitting Provider Internal Medicine; Emergency Provider Student in an Organized Health Care Education/Training Program; PCP Family Medicine; Visit Provider Internal Medicine
DX: R29.818 Other symptoms and signs involving the nervous system (principal); J32.4 Chronic pansinusitis; I10 Essential (primary) hypertension; R27.0 Ataxia, unspecified; M35.3 Polymyalgia rheumatica; I35.1 Nonrheumatic aortic (valve) insufficiency
CPT/HCPCS: 36415; 70450; 70496; 70498; 70551; 80048; 80061; 81001; 84443; 85025; 93306; 94762; 96360; 96361; 97161; 97165; 97802; 99221; 99285; Q9967; A4216; G0378